=== PATIENT | male | born 1960 | race Caucasian/White ===

== ENCOUNTER 2017-01-26 16:29 | Inpatient (IN) | payer OTHER ==
--- NOTE | 2017-01-26 16:49 | PDOC ---
History of Present Illness - General History Source: Patient Exam Limitations: No Limitations - History of Present Illness Initial Comments: 01/26/17 18:23 The patient is a 56 year old male resident from [facility], with a significant past medical history of Klinefelter's syndrome, DM, Atrial fibrillation, CHF, HTN, HLD, schizophrenia, anxiety who presents to the emergency department with chest pain for the past 2 weeks. Patient reports intermittent chest pain with associated SOB for the past 2 weeks. Patient describes chest pain as sharp, stabbing pain, radiating to shoulder, arm and neck. Patient states he feels his blood pumping through his heart. Additionally, patient reports [place] and since then has been experiencing rib cage pain and axillary pain. Patient He denies headache or dizziness. He denies fever, chills, abdominal pain, nausea , vomit, diarrhea or constipation. He denies dysuria, frequency, urgency or hematuria. Patient denies sick contacts or recent travel. <Madalyn Fowler - Last Filed: 01/26/17 18:23> <Mandy Donahue - Last Filed: 01/26/17 19:08> - General Chief Complaint: Chest Pain Stated Complaint: CHEST PAIN Time Seen by Provider: 01/26/17 16:43 Past History <Madalyn Fowler - Last Filed: 01/26/17 18:23> - Past Medical History Anemia: Yes (vitamin D deficiency) Cardiac Disorders: Yes (afib) COPD: No HTN: Yes Hypercholesterolemia: Yes Psychiatric Problems: Yes (schizophrenia, anxiety) - Suicide/Smoking/Psychosocial Hx Smoking History: Never smoked <Mandy Donahue - Last Filed: 01/26/17 19:08> - Past Medical History Allergies/Adverse Reactions: Allergies Allergy/AdvReac Type Severity Reaction Status Date / Time cephalexin Allergy Verified 01/26/17 16:45 chicken derived Allergy Verified 01/26/17 16:45 cinnamon Allergy Verified 01/26/17 16:45 codeine Allergy Verified 01/26/17 16:46 egg Allergy Verified 01/26/17 16:46 gabapentin Allergy Verified 01/26/17 16:46 hydrochlorothiazide Allergy Verified 01/26/17 16:46 levothyroxine Allergy Verified 01/26/17 16:46 onion Allergy Verified 01/26/17 16:46 Home Medications: Ambulatory Orders Albuterol 0.083% Nebulizer Anabel [Ventolin 0.083%] 1 neb NEB QID PRN 01/26/17 Apixaban [Eliquis] 5 mg PO BID 01/26/17 Dronedarone HCl [Multaq] 400 mg PO BID 01/26/17 Fluticasone Prop 0.05% Nasal [Flonase -] 1 - 2 spray NS DAILY 01/26/17 Furosemide [Lasix] 20 mg PO DAILY 01/26/17 Gabapentin 100 mg PO TID 01/26/17 Hydroxyurea [Hydrea -] 500 mg PO DAILY 01/26/17 Ibuprofen 400 mg PO TID PRN 01/26/17 Insulin Glargine,Hum.rec.anlog [Lantus Solostar PEN (NF)] 65 units SQ DAILY 09/06 Lisinopril [Prinivil] 20 mg PO DAILY 01/26/17 Loratadine [Claritin] 10 mg PO DAILY 01/26/17 Lorazepam 2 mg PO TID 01/26/17 Mag Hydrox/Al Hydrox/Simeth [Mylanta *Suspension*] 30 ml PO Q6H PRN 01/26/17 Magnesium Hydroxide [Milk of Magnesia] 400 mg PO PRN 01/26/17 Magnesium Oxide [Magnesium] 400 mg PO DAILY 01/26/17 Melatonin 3 mg PO HS 01/26/17 Mupirocin Cream [Bactroban 2% Cream -] 1 applic TP BID 01/26/17 Na Phos,M-B/Na Phos,Di-Ba [Fleet Enema] 133 ml RC ONCE PRN 01/26/17 Nystatin Cream [Mycostatin] 1 applic TP BID 01/26/17 Olanzapine 5 mg PO DAILY 01/26/17 Oxycodone HCl/Acetaminophen [Percocet 5-325 mg Tablet] 2 tab PO Q8H PRN Paroxetine HCl 20 mg PO DAILY 01/26/17 Paroxetine HCl 30 mg PO DAILY 01/26/17 Phenyleph/Pramoxin/Glycr/W.pet [Preparation H Cream] 26 gm RC BID 01/26/17 Pramoxine HCl/Calamine [Caladryl 1%-8% Lotion] 177 ml TP TID 01/26/17 Review of Systems - Review of Systems Able to Perform ROS?: Yes Comments:: 01/26/17 18:23 GENERAL/CONSTITUTIONAL: No fever or chills. No weakness. HEAD, EYES, EARS, NOSE AND THROAT: No change in vision. No ear pain or discharge. No sore throat. GASTROINTESTINAL: No nausea, vomiting, diarrhea or constipation. GENITOURINARY: No dysuria, frequency, or change in urination. CARDIOVASCULAR: +chest pain and shortness of breath. RESPIRATORY: No cough, wheezing, or hemoptysis. MUSCULOSKELETAL: No joint or muscle swelling or pain. No neck or back pain. SKIN: No rash NEUROLOGIC: No headache, vertigo, loss of consciousness, or change in strength/ sensation. ENDOCRINE: No increased thirst. No abnormal weight change. HEMATOLOGIC/LYMPHATIC: No anemia, easy bleeding, or history of blood clots. ALLERGIC/IMMUNOLOGIC: No hives or skin allergy. <Madalyn Fowler - Last Filed: 01/26/17 18:23> *Physical Exam - Vital Signs Last Vital Signs Temp Pulse Resp BP Pulse Ox 97.7 F 88 18 135/78 95 01/26/17 16:41 01/26/17 16:41 01/26/17 16:41 01/26/17 16:41 01/26/17 16:41 - Physical Exam Comments: 01/26/17 18:23 GENERAL: Awake, alert, and fully oriented, in no acute distress HEAD: No signs of trauma EYES: PERRLA, EOMI, sclera anicteric, conjunctiva clear ENT: Auricles normal inspection, hearing grossly normal, nares patent, oropharynx clear without exudates. Moist mucosa NECK: Normal ROM, supple, no lymphadenopathy, JVD, or masses LUNGS: Breath sounds equal, clear to auscultation bilaterally. No wheezes, and no crackles HEART: Regular rate and rhythm, normal S1 and S2, no murmurs, rubs or gallops ABDOMEN: Soft, nontender, normoactive bowel sounds. No guarding, no rebound. No masses EXTREMITIES: Normal range of motion, no edema. No clubbing or cyanosis. No cords, erythema, or tenderness. +Tenderness to L lateral ribs and axillary area. NEUROLOGICAL: Cranial nerves II through XII grossly intact. Normal speech, normal gait SKIN: Warm, Dry, normal turgor, no rashes or lesions noted. <Madalyn Fowler - Last Filed: 01/26/17 18:23> - Vital Signs Last Vital Signs Temp Pulse Resp BP Pulse Ox 97.7 F 88 18 135/78 95 01/26/17 16:41 01/26/17 16:41 01/26/17 16:41 01/26/17 16:41 01/26/17 16:41 <Mandy Donahue - Last Filed: 01/26/17 19:08> ED Treatment Course - LABORATORY CBC & Chemistry Diagram: 01/26/17 18:07 01/26/17 18:27 <Mandy Donahue - Last Filed: 01/26/17 19:08> Medical Decision Making - Medical Decision Making 01/26/17 18:54 56yo male with L sided cp and fluttering sensation that has been going on intermittently x 2 weeks -fall 2 week ago -need rib xray to r/o fracture, also c/o cp separate from rib pain -trops, ekg, cxr -hx of PCV 01/26/17 19:07 pt with elevated HCT - hgb 20 pt may need phlebotomy pt will be signed out to the oncoming ED physician pending rest of the labs and discussion with PMD pending PCV pt does take hydroxyurea <Mandy Donahue - Last Filed: 01/26/17 19:08> *DC/Admit/Observation/Transfer - Attestations Scribe Attestion: 01/26/17 18:23 Documentation prepared by Madalyn Fowler, acting as district medical examiner for Mandy Donahue DO, MD/. <Madalyn Fowler - Last Filed: 01/26/17 18:23> - Attestations Physician Attestion: 01/26/17 19:08 I, Dr. Mandy Donahue DO, attest that this document has been prepared under my direction and personally reviewed by me in its entirety. I further attest, that it accurately reflects all work, treatment, procedures and medical decision -making performed by me. <Mandy Donahue - Last Filed: 01/26/17 19:08> Diagnosis at time of Disposition: Polycythemia vera, Chest pain - Referrals Referrals: Franki Pena MD [Primary Care Provider] -
[2017-01-26 18:40] LABS: BASOPHIL 2.1 % (0-2.0); EOSINOPHIL 2.7 % (0-4.5); MCH 28.7 pg (25.7-33.7); MCHC 32.4 g/dl (32.0-35.9); MEAN CELL VOLUME 88.6 fl (80-96); NEUTROPHILS 53.2 % (42.8-82.8); RDW 17.9 % (11.9-15.9)
[2017-01-26] MEDS ORDERED: ONDANSETRON 4 MG/2 ML VIAL IVPUSH ONE (18:54)
[2017-01-26] MEDS ORDERED: SODIUM CHLORIDE 0.9% 1000 ML INFUS.BAG IV ONE (18:54)
[2017-01-26] MEDS ORDERED: ONDANSETRON 4 MG/2 ML VIAL ONE (18:55)
[2017-01-26 19:25] LABS: PLATELET COMMENT2 NO CLUMPING NOTED; PLATELET COMMENT3 NO CLOTTING DETECTED; PLATELET COUNT 282 K/MM3 (134-434); PLATELET ESTIMATE ADEQUATE (NORMAL)
--- NOTE | 2017-01-26 19:42 | PDOC ---
*Physical Exam - Vital Signs Last Vital Signs Temp Pulse Resp BP Pulse Ox 97.7 F 88 18 135/78 95 01/26/17 16:41 01/26/17 16:41 01/26/17 16:41 01/26/17 16:41 01/26/17 16:41 <Aurelio Tracey - Last Filed: 01/26/17 22:15> - Vital Signs Last Vital Signs Temp Pulse Resp BP Pulse Ox 97.7 F 88 18 135/78 95 01/26/17 16:41 01/26/17 16:41 01/26/17 16:41 01/26/17 16:41 01/26/17 16:41 <Kenia Stephens - Last Filed: 01/26/17 23:56> ED Treatment Course - LABORATORY CBC & Chemistry Diagram: 01/26/17 18:07 01/26/17 19:30 - ADDITIONAL ORDERS Additional order review: Laboratory Results 01/26/17 01/26/17 18:27 18:07 Sodium Cancelled Potassium Cancelled Chloride Cancelled Carbon Dioxide Cancelled Anion Gap Cancelled BUN Cancelled Creatinine Cancelled Creat Clearance w eGFR Cancelled Random Glucose Cancelled Calcium Cancelled Magnesium Cancelled Total Bilirubin Cancelled AST Cancelled ALT Cancelled Alkaline Phosphatase Cancelled Creatine Kinase Cancelled Troponin I Cancelled B-Natriuretic Peptide Cancelled Total Protein Cancelled Albumin Cancelled 01/26/17 18:07 RBC 7.06 H MCV 88.6 MCHC 32.4 RDW 17.9 H MPV 8.0 Neutrophils % 53.2 Lymphocytes % 32.8 Monocytes % 9.2 Eosinophils % 2.7 Basophils % 2.1 H - Medications Given in the ED: ED Medications Discontinued Medications Generic Name Dose Route Start Last Admin Trade Name Freq PRN Reason Stop Dose Admin Ondansetron HCl 4 mg 01/26/17 18:54 01/26/17 19:06 Zofran Injection IVPUSH 01/26/17 18:55 Not Given ONCE ONE Sodium Chloride 1,000 ml 01/26/17 18:54 01/26/17 19:06 Normal Saline - IV 01/26/17 18:55 1,000 ml ONCE ONE Administration <Aurelio Tracey - Last Filed: 01/26/17 22:15> - LABORATORY CBC & Chemistry Diagram: 01/26/17 22:30 01/26/17 19:30 - ADDITIONAL ORDERS Additional order review: Laboratory Results 01/26/17 01/26/17 18:27 18:07 Sodium Cancelled Potassium Cancelled Chloride Cancelled Carbon Dioxide Cancelled Anion Gap Cancelled BUN Cancelled Creatinine Cancelled Creat Clearance w eGFR Cancelled Random Glucose Cancelled Calcium Cancelled Magnesium Cancelled Total Bilirubin Cancelled AST Cancelled ALT Cancelled Alkaline Phosphatase Cancelled Creatine Kinase Cancelled Troponin I Cancelled B-Natriuretic Peptide Cancelled Total Protein Cancelled Albumin Cancelled 01/26/17 18:07 RBC 7.06 H MCV 88.6 MCHC 32.4 RDW 17.9 H MPV 8.0 Neutrophils % 53.2 Lymphocytes % 32.8 Monocytes % 9.2 Eosinophils % 2.7 Basophils % 2.1 H - Medications Given in the ED: ED Medications Discontinued Medications Generic Name Dose Route Start Last Admin Trade Name Freq PRN Reason Stop Dose Admin Ondansetron HCl 4 mg 01/26/17 18:54 01/26/17 19:06 Zofran Injection IVPUSH 01/26/17 18:55 Not Given ONCE ONE Sodium Chloride 1,000 ml 01/26/17 18:54 01/26/17 19:06 Normal Saline - IV 01/26/17 18:55 1,000 ml ONCE ONE Administration <Kenia Stephens - Last Filed: 01/26/17 23:56> Medical Decision Making - Medical Decision Making 01/26/17 19:52 Pt is a 56 year old male resident from [facility], with a significant past medical history of Klinefelter's syndrome, DM, Atrial fibrillation, CHF, HTN, HLD, schizophrenia, anxiety who presents to the emergency department with chest pain for the past 2 weeks. Patient's Hgb is 20. Plan: -Call Dr. Mary Jo Pena for possible admission and phlebotomy to decrease blood count. -Paronychia drainage, right thumb. First call placed to Dr. Pena at 20:56. Awaiting call back. Case discussed with Dr. Santana at 21:00, who requests patient be admitted to hospitalists. First call placed to Dr. Ritter at 21:44. Awaiting call back from Dr. Randle. Case discussed with Dr. Randle at 21:46. First call placed to Dr. Flores at 22:05. Awaiting call back. <Kenia Stephens - Last Filed: 01/26/17 23:56> *DC/Admit/Observation/Transfer - Discharge Dispostion Admit: Yes - Attestations Physician Attestion: 01/26/17 19:42 I, Dr. Aurelio Tracey, attest that this document has been prepared under my direction and personally reviewed by me in its entirety. I further attest, that it accurately reflects all work, treatment, procedures and medical decision -making performed by me. <Aurelio Tracey - Last Filed: 01/26/17 22:15> - Attestations Scribe Attestion: 01/26/17 19:53 Documentation prepared by Kenia Stephens, acting as medical chief technician for Aurelio Tracey DO. <Kenia Stephens - Last Filed: 01/26/17 23:56> Diagnosis at time of Disposition: Polycythemia vera, Chest pain - Discharge Dispostion Condition at time of disposition: Improved - Referrals - Patient Instructions - Post Discharge Activity Procedures - Incision and Drainage I&D Site: Right: Paronychia (Thumb) Blade Size: 11 <Kenia Stephens - Last Filed: 01/26/17 23:56>
[2017-01-26 20:10] LABS: ALBUMIN 2.9 g/dl (3.4-5.0); ANION GAP 8 (8-16); BILIRUBIN,TOTAL 0.3 mg/dL (0.2-1.0); CALCIUM 8.4 mg/dL (8.5-10.1); CO2 27 mmol/L (21-32); CREATININE 0.9 mg/dL (0.7-1.3); SGPT/ALT 46 U/L (12-78); TOT PROT 6.3 g/dl (6.4-8.2)
[2017-01-26 20:12] LABS: ALK PHOS 95 U/L (45-117); TROPONIN I < 0.02 ng/ml (0.00-0.05)
[2017-01-26 20:15] LABS: GLUCOSE,RANDOM 358 mg/dL (74-106); MAGNESIUM 1.9 mg/dL (1.8-2.4); SGOT/AST 23 U/L (15-37)
[2017-01-26] MEDS ORDERED: SODIUM CHLORIDE 1,000 ML IV STA (20:17)
[2017-01-26] MEDS ORDERED: INSULIN REGULAR HUMAN 100 UNITS/ML *VIAL IVPUSH ONE (20:17)
[2017-01-26] MEDS ORDERED: INSULIN REGULAR HUMAN 100 UNITS/ML *VIAL ONE (20:39)
[2017-01-26] MEDS ORDERED: ASPIRIN 81 MG CHEWABLE TABLETS PO ONE (21:42)
[2017-01-26] MEDS ORDERED: ASPIRIN 325 MG TABLET ONE (21:54)
--- NOTE | 2017-01-26 22:16 | HP ---
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 He reports taht he has history of occasional CP, however, this episode started 2 w ago after he fell on his L shoulder and L chest. Pain is somewhat atypical, not associated with movement or breathing but reproducible by pressing on chest. Patient describes chest pain as sharp, stabbing pain, radiating to shoulder, arm and neck. During the examination, CP is no longer present. Patient has not seen a hemotologist in a year. he denies current presence of his usual PV symptoms (itching, head pressure). He denies history of stroke, PE or WI. He reports chronic intermittent sob, intermittent chronic palpitations, chronic intermittent bloody stools due to hemorrhoids, constipation due to percocet use and diabetic neuropathy in b/l feet. He denies h/a, visual changes, dizziness, f/c, cough, hemoptysis, abd pain, n/v, diarrhea, dysuria. ER course was notable for: (1)labs (2)ekg, cxr (3)asa, IVF Recent Travel: denies PAST MEDICAL HISTORY: as above PAST SURGICAL HISTORY: as above Social History: [place] resident Smoking: denies Alcohol: denies Drugs: denies Family History: unknown Allergies cephalexin Allergy (Verified 01/26/17 16:45) chicken derived Allergy (Verified 01/26/17 16:45) cinnamon Allergy (Verified 01/26/17 16:45) codeine Allergy (Verified 01/26/17 16:46) egg Allergy (Verified 01/26/17 16:46) gabapentin Allergy (Verified 01/26/17 16:46) hydrochlorothiazide Allergy (Verified 01/26/17 16:46) levothyroxine Allergy (Verified 01/26/17 16:46) onion Allergy (Verified 01/26/17 16:46) HOME MEDICATIONS: Home Medications Medication Instructions Recorded Albuterol 0.083% Nebulizer Anabel 1 neb NEB QID PRN 01/26/17 [Ventolin 0.083%] Apixaban [Eliquis] 5 mg PO BID 01/26/17 Dronedarone HCl [Multaq] 400 mg PO BID 01/26/17 Fluticasone Prop 0.05% Nasal 1 - 2 spray NS DAILY 01/26/17 [Flonase -] Furosemide [Lasix] 20 mg PO DAILY 01/26/17 Gabapentin 100 mg PO TID 01/26/17 Hydroxyurea [Hydrea -] 500 mg PO DAILY 01/26/17 Ibuprofen 400 mg PO TID PRN 01/26/17 Insulin Glargine,Hum.rec.anlog 65 units SQ DAILY 01/26/17 [Lantus Solostar PEN (NF)] Lisinopril [Prinivil] 20 mg PO DAILY 01/26/17 Loratadine [Claritin] 10 mg PO DAILY 01/26/17 Lorazepam 2 mg PO TID 01/26/17 Mag Hydrox/Al Hydrox/Simeth 30 ml PO Q6H PRN 01/26/17 [Mylanta *Suspension*] Magnesium Hydroxide [Milk of 400 mg PO DAILY PRN 01/26/17 Magnesia] Magnesium Oxide [Magnesium] 400 mg PO DAILY 01/26/17 Melatonin 3 mg PO HS 01/26/17 Mupirocin Cream [Bactroban 2% 1 applic TP BID 01/26/17 Cream -] Na Phos,M-B/Na Phos,Di-Ba [Fleet 133 ml RC ONCE PRN 01/26/17 Enema] Nystatin Cream [Mycostatin] 1 applic TP BID 01/26/17 Olanzapine 5 mg PO DAILY 01/26/17 Oxycodone HCl/Acetaminophen 2 tab PO Q8H PRN 01/26/17 [Percocet 5-325 mg Tablet] Paroxetine HCl 20 mg PO DAILY 01/26/17 Paroxetine HCl 30 mg PO DAILY 01/26/17 Phenyleph/Pramoxin/Glycr/W.pet 26 gm RC BID 01/26/17 [Preparation H Cream] Pramoxine HCl/Calamine [Caladryl 177 ml TP TID 01/26/17 1%-8% Lotion] REVIEW OF SYSTEMS CONSTITUTIONAL: Absent: fever, chills, diaphoresis, generalized weakness, weight change HEENT: Absent: rhinorrhea, nasal congestion, throat pain, visual changes CARDIOVASCULAR: Absent: syncope, palpitations, irregular heart rate, lightheadedness, peripheral edema RESPIRATORY: Absent: cough, hemoptysis GASTROINTESTINAL: Absent: abdominal pain, abdominal distension, nausea, vomiting, diarrhea, constipation, melena GENITOURINARY: Absent: dysuria MUSCULOSKELETAL: Absent: myalgia, arthralgia SKIN: Absent: rash, itching, pallor HEMATOLOGIC/IMMUNOLOGIC: Absent: frequent infections ENDOCRINE: Absent: unexplained weight gain, unexplained weight loss, heat intolerance, cold intolerance NEUROLOGIC: Absent: headache, focal weakness or paresthesias, dizziness PSYCHIATRIC: Absent: suicidal or homicidal ideation, hallucinations. PHYSICAL EXAMINATION Vital Signs - 24 hr 01/26/17 01/26/17 01/26/17 16:41 21:03 21:14 Temperature 97.7 F Pulse Rate 88 Pulse Rate [ 82 Radial] Respiratory 18 20 Rate Blood Pressure 135/78 Blood Pressure 136/76 [Left Arm] O2 Sat by Pulse 95 96 95 Oximetry (%) GENERAL: Awake, alert, and fully oriented, in no acute distress. HEAD: Normal with no signs of trauma. EYES: Pupils equal, round and reactive to light, extraocular movements intact, sclera anicteric, conjunctiva clear. EARS, NOSE, THROAT: Moist mucous membranes. NECK: supple without JVD LUNGS: Breath sounds equal, clear to auscultation bilaterally. HEART: Regular rate and rhythm, normal S1 and S2 ABDOMEN: Soft, nontender, not distended, normoactive bowel sounds MUSCULOSKELETAL: No CVA tenderness. UPPER EXTREMITIES: 2+ pulses, warm, well-perfused.No peripheral edema. LOWER EXTREMITIES: 1+ pulses, warm, well-perfused. No calf tenderness. No peripheral edema. NEUROLOGICAL: Cranial nerves II-XII grossly intact. Normal speech. PSYCHIATRIC: Cooperative. Good eye contact. Appropriate mood and affect. SKIN: Warm, dry Laboratory Results - last 24 hr 01/26/17 01/26/17 01/26/17 18:07 18:07 18:27 WBC 6.0 RBC 7.06 H Hgb 20.3 H* Hct 62.6 H MCV 88.6 MCH 28.7 MCHC 32.4 RDW 17.9 H Plt Count 282 MPV 8.0 Neutrophils % 53.2 Lymphocytes % 32.8 Monocytes % 9.2 Eosinophils % 2.7 Basophils % 2.1 H Platelet Estimate Adequate Platelet Comment No clumping noted RBC Morphology Sodium Cancelled Potassium Cancelled Chloride Cancelled Carbon Dioxide Cancelled Anion Gap Cancelled BUN Cancelled Creatinine Cancelled Creat Clearance w eGFR Cancelled Random Glucose Cancelled Calcium Cancelled Magnesium Cancelled Total Bilirubin Cancelled AST Cancelled ALT Cancelled Alkaline Phosphatase Cancelled Creatine Kinase Cancelled Troponin I Cancelled B-Natriuretic Peptide Cancelled Total Protein Cancelled Albumin Cancelled 01/26/17 01/26/17 19:30 19:30 WBC RBC Hgb Hct MCV MCH MCHC RDW Plt Count MPV Neutrophils % Lymphocytes % Monocytes % Eosinophils % Basophils % Platelet Estimate Platelet Comment RBC Morphology Sodium 133 L Potassium 4.4 Chloride 98 Carbon Dioxide 27 Anion Gap 8 BUN 22 H Creatinine 0.9 Creat Clearance w eGFR > 60 Random Glucose 358 H* Calcium 8.4 L Magnesium 1.9 Total Bilirubin 0.3 AST 23 ALT 46 Alkaline Phosphatase 95 Creatine Kinase Troponin I < 0.02 B-Natriuretic Peptide 97.37 Total Protein 6.3 L Albumin 2.9 L ASSESSMENT/PLAN: This is a 56 yo M [place] resident, with a 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 PV exacerbation with atypical CP -Hct 60% -Heme consult -Phlebotomy to remove 1u; may need to remove more. Hct goal <45% but expected to drop 6% after session -IVF -CP likely musculoskeletal; f/o acs -trop negative, check one more -EKG precordial q waves -+sytolic murmur, appears euvolemic -TTE -tele monitoring -cardio on case -contineu asa, increase hydroxyurea to 500 bid A fin due to aortic valvular damage -rate controlled, stable -continue eliquis IDDM -BGM, ISS -resume basal insulin HTN HLD -resume home meds Dispo: adm tele Problem List - Problem (1) Polycythemia vera Code(s): D45 - POLYCYTHEMIA VERA (2) Atypical chest pain Code(s): R07.89 - OTHER CHEST PAIN (3) HTN (hypertension) Code(s): I10 - ESSENTIAL (PRIMARY) HYPERTENSION (4) HLD (hyperlipidemia) Code(s): E78.5 - HYPERLIPIDEMIA, UNSPECIFIED (5) IDDM (insulin dependent diabetes mellitus) Code(s): E11.9 - TYPE 2 DIABETES MELLITUS WITHOUT COMPLICATIONS Z79.4 - STUMP BLOWER (CURRENT) USE OF INSULIN (6) Atrial fibrillation Code(s): I48.91 - UNSPECIFIED ATRIAL FIBRILLATION Visit type - Emergency Visit Emergency Visit: Yes ED Registration Date: 01/26/17 Care time: The patient presented to the Emergency Department on the above date and was hospitalized for further evaluation of their emergent condition. - New Patient This patient is new to me today: Yes Date on this admission: 01/27/17 - Critical Care Critical Care patient: No
[2017-01-26 22:32] LABS: CPK 92 IU/L (39-308)
[2017-01-26 22:50] LABS: MCH 28.2 pg (25.7-33.7); MEAN CELL VOLUME 88.1 fl (80-96); MEAN PLT VOLUME 7.6 fl (7.5-11.1); PLATELET COUNT 269 K/MM3 (134-434); RDW 17.9 % (11.9-15.9); WHITE BLOOD COUNT 6.8 K/mm3 (4.0-10.0)
[2017-01-26 22:53] LABS: URIC ACID 7.3 mg/dL (2.6-7.2)
--- NOTE | 2017-01-26 23:05 | PN ---
Teaching Attending Note Name of Resident: Adrian Chavarria ATTENDING PHYSICIAN STATEMENT I saw and evaluated the patient. I reviewed the resident's note and discussed the case with the resident. I agree with the resident's findings and plan as documented. SUBJECTIVE: 56 M with pmhx Kleinfelter's, DM, Afib on Eliquis, CHF, HTN, HLD, and Schizophrenia, anxiety, and upon reinterview PCV (with last phlebotomy being 1 year ago), who presents with left sided chest pain. States he fell out of bed and landed on his left chest. States Xrays were done in [place] and all were negative. Denies shortness of breath No headaches, no dizziness, no lightheadedness. States when his Hct is high, he usually has puritis, but denies that now,. States takes Hydrea regularly, but had not followed with a digital strategy director. States his chest pain is non-radiating and is present upon his own palpation. No chest pressure. OBJECTIVE: Physical: VS: Vital Signs Period Temp Pulse Resp BP Sys/Guallpa Pulse Ox Last 24 Hr 97.7 F 82-88 18-20 135-136/76-78 95-96 GEN: NAD, AA0X3, Resting in bed HEENT: NCAT, PERRL, Throat without erythema or exudates CARD: RRR S1, S2 RESP: CTAB ABD: BSx4, NTD to palpation EXT: - C/C/E CBCD WBC 6.8 K/mm3 (4.0-10.0) 01/26/17 22:30 RBC 7.13 M/mm3 (4.00-5.60) H 01/26/17 22:30 Hgb 20.1 GM/dL (11.7-16.9) H* 01/26/17 22:30 Hct 62.8 % (35.4-49) H 01/26/17 22:30 MCV 88.1 fl (80-96) 01/26/17 22:30 MCHC 32.0 g/dl (32.0-35.9) 01/26/17 22:30 RDW 17.9 % (11.9-15.9) H 01/26/17 22:30 Plt Count 269 K/MM3 (134-434) 01/26/17 22:30 MPV 7.6 fl (7.5-11.1) 01/26/17 22:30 CMP Sodium 133 mmol/L (136-145) L 01/26/17 19:30 Potassium 4.4 mmol/L (3.5-5.1) 01/26/17 19:30 Chloride 98 mmol/L (98-107) 01/26/17 19:30 Carbon Dioxide 27 mmol/L (21-32) 01/26/17 19:30 Anion Gap 8 (8-16) 01/26/17 19:30 BUN 22 mg/dL (7-18) H 01/26/17 19:30 Creatinine 0.9 mg/dL (0.7-1.3) 01/26/17 19:30 Creat Clearance w eGFR > 60 (>60) 01/26/17 19:30 Random Glucose 358 mg/dL (74-106) H* 01/26/17 19:30 Calcium 8.4 mg/dL (8.5-10.1) L 01/26/17 19:30 Total Bilirubin 0.3 mg/dL (0.2-1.0) 01/26/17 19:30 AST 23 U/L (15-37) 01/26/17 19:30 ALT 46 U/L (12-78) 01/26/17 19:30 Alkaline Phosphatase 95 U/L (45-117) 01/26/17 19:30 Total Protein 6.3 g/dl (6.4-8.2) L 01/26/17 19:30 Albumin 2.9 g/dl (3.4-5.0) L 01/26/17 19:30 CARDIAC ENZYMES Creatine Kinase 92 IU/L (39-308) 01/26/17 19:30 Troponin I < 0.02 ng/ml (0.00-0.05) 01/26/17 19:30 EKG: NSR, LAE, Q waves in the septal leads CXR- No acute process Rib Xray- Pending Ambulatory Orders Albuterol 0.083% Nebulizer Anabel [Ventolin 0.083%] 1 neb NEB QID PRN 01/26/17 Apixaban [Eliquis] 5 mg PO BID 01/26/17 Dronedarone HCl [Multaq] 400 mg PO BID 01/26/17 Fluticasone Prop 0.05% Nasal [Flonase -] 1 - 2 spray NS DAILY 01/26/17 Furosemide [Lasix] 20 mg PO DAILY 01/26/17 Gabapentin 100 mg PO TID 01/26/17 Hydroxyurea [Hydrea -] 500 mg PO DAILY 01/26/17 Ibuprofen 400 mg PO TID PRN 01/26/17 Insulin Glargine,Hum.rec.anlog [Lantus Solostar PEN (NF)] 65 units SQ DAILY 09/06 Lisinopril [Prinivil] 20 mg PO DAILY 01/26/17 Loratadine [Claritin] 10 mg PO DAILY 01/26/17 Lorazepam 2 mg PO TID 01/26/17 Mag Hydrox/Al Hydrox/Simeth [Mylanta *Suspension*] 30 ml PO Q6H PRN 01/26/17 Magnesium Hydroxide [Milk of Magnesia] 400 mg PO DAILY PRN 01/26/17 Magnesium Oxide [Magnesium] 400 mg PO DAILY 01/26/17 Melatonin 3 mg PO HS 01/26/17 Mupirocin Cream [Bactroban 2% Cream -] 1 applic TP BID 01/26/17 Na Phos,M-B/Na Phos,Di-Ba [Fleet Enema] 133 ml RC ONCE PRN 01/26/17 Nystatin Cream [Mycostatin] 1 applic TP BID 01/26/17 Olanzapine 5 mg PO DAILY 01/26/17 Oxycodone HCl/Acetaminophen [Percocet 5-325 mg Tablet] 2 tab PO Q8H PRN Paroxetine HCl 20 mg PO DAILY 01/26/17 Paroxetine HCl 30 mg PO DAILY 01/26/17 Phenyleph/Pramoxin/Glycr/W.pet [Preparation H Cream] 26 gm RC BID 01/26/17 Pramoxine HCl/Calamine [Caladryl 1%-8% Lotion] 177 ml TP TID 01/26/17 ASSESSMENT AND PLAN: 56 M with pmhx Kleinfelter's, DM, Afib on Eliquis, CHF, HTN, HLD, and Schizophrenia, anxiety, and PCV who presents with chest pain 1.) Chest Pain - Atypical - MSK - S/P ASA - Trend Trop/EKG - Cardiology consulted - Dr. Flores spoken to ok with phelbotomy - Echo\-Rib Xray 2.) Polycythemia Vera - Repeat CBC - Goal Hct <45 - LDH/Uric A - Spoken with Heme, S/P phlebotomy 450mL- Consented in ED - Monitor hemodynamics post procedure - 500 Ml IVF - Goal Hct<45 - ASA given, Continue with ASA 81mg tomorrow - Hydrea 500mg BID - EPO/Rogers-2 3.) CHF - Currently Euvolemic - C/W home meds 4.) Afib - Currently in NSR - On Eliquis - C/W home meds - Monitor CBC 5.) HTN - Hold meds for now - Resume once Phlebotomy is done 6.) Hx. of Kleinfelters - Outpt. Mammo/Testicular US 7.) Hx. of Schizophrenia -C/W home meds 7.) Dvt Ppx - Eliquis Place in Med-Tele
--- NOTE | 2017-01-26 23:17 | CONSULT ---
Consult - text type - Consultation Consultation Note: PAtient seen and examined 56 y/o male with h/o polycythemia vera diagnosed 7-8 yrs. ago at [place], where he had a bone marrow bx. He was being followed by Dr. Juarez at [facility] and had monthly phlebotomis, upuntil 8 months dasilva. Had been on hydrea and ASA 81mg dialy PAtient comes in s/p fall 1week ago. intermittent cjhhest pains, palpitations, haeadaches. No fever/chills/cough/SOB. Reports hemorrhoidal bleeding. no urinary symptoms PMH Klinefelters sundrome gynecomastia biopsies of benign breast masses Polycythemia vera HTN Afib chronic back pain PSG breast biopsies SH nonsmoker Last Vital Signs Temp Pulse Resp BP Pulse Ox 97.7 F 82 20 136/76 95 01/26/17 16:41 01/26/17 21:03 01/26/17 21:03 01/26/17 21:03 01/26/17 21:14 Cor: RSR, No murmurs, No gallops Lungs: Clear to P&A Abd: Soft, Normal bowel sounds, No organomegaly Ext:No significant edema Skin: No rashes, Integument intact Abnormal Lab Results 01/26/17 01/26/17 01/26/17 18:07 19:30 19:30 RBC 7.06 H Hgb 20.3 H* Hct 62.6 H RDW 17.9 H Basophils % 2.1 H Sodium 133 L BUN 22 H Random Glucose 358 H* Uric Acid 7.3 H Calcium 8.4 L Total Protein 6.3 L Albumin 2.9 L 01/26/17 22:30 RBC 7.13 H Hgb 20.1 H* Hct 62.8 H RDW 17.9 H Basophils % Sodium BUN Random Glucose Uric Acid Calcium Total Protein Albumin Active Medications Generic Name Dose Route Start Last Admin Trade Name Freq PRN Reason Stop Dose Admin Al Hydroxide/Mg Hydroxide 30 ml 01/26/17 23:59 Mylanta Oral Suspension - PO Q6H PRN DIARRHEA Albuterol/Ipratropium 1 amp 01/27/17 00:11 Duoneb - NEB Q8H PRN SHORT OF BREATH/WHEEZING Apixaban 5 mg 01/27/17 10:00 Eliquis - PO BID ANCA Dronedarone 400 mg 01/27/17 10:00 Multaq - PO BID [facility] Furosemide 20 mg 01/27/17 10:00 Lasix - PO DAILY [facility] Gabapentin 100 mg 01/27/17 06:00 Neurontin - PO TID [facility] Hydroxyurea 500 mg 01/27/17 10:00 Hydrea - PO BID [facility] Ibuprofen 400 mg 01/26/17 23:59 Motrin - PO TID PRN PAIN Insulin Aspart 1 vial 01/27/17 07:00 Novolog Vial Sliding Scale - SQ ACHS [facility] Protocol Lisinopril 20 mg 01/27/17 10:00 Prinivil PO DAILY [facility] Loratadine 10 mg 01/27/17 10:00 Claritin - PO DAILY [facility] Magnesium Hydroxide ml 01/26/17 23:59 Milk Of Magnesia - PO DAILY PRN CONSTIPATION Magnesium Oxide 400 mg 01/27/17 10:00 Mag-Ox - PO DAILY [facility] Non-Formulary Medication 65 units 01/27/17 10:00 Insulin Glargine,Hum.Rec.Anlog SQ DAILY [facility] Non-Formulary Medication 2 mg 01/27/17 06:00 Lorazepam [Lorazepam] PO TID [facility] Non-Formulary Medication 3 mg 01/27/17 22:00 Melatonin [Melatonin] PO HS [facility] Olanzapine 5 mg 01/27/17 10:00 Zyprexa - PO DAILY [facility] Oxycodone/Acetaminophen 1 combo 01/27/17 00:10 Percocet 5/325 - PO Q12H PRN PAIN Paroxetine HCl 20 mg 01/27/17 10:00 Paxil - PO DAILY [facility] Paroxetine HCl 30 mg 01/27/17 10:00 Paxil - PO DAILY [facility] A/P 56 y/o male with h/o polycythemia vera diagnosed 7-8 yrs. ago at [place], where he had a bone marrow bx. He was being followed by Dr. Juarez at [facility] and had monthly phlebotomis, upuntil 8 months dasilva. Had been on hydrea and ASA 81mg dialy. Has not seen a branch sales manager and has not been phlebotomized for > 8 months now Comes in with intermittent headaches and chest pain. Also with fall 1 week ago, Reports last episode pof chestpain 2 days back. HCT 62%, repeated twice Concern for symptoms of hyperviscosity Discussed with cardiology team Informed consent taken and phlebotomized 1 unit of blood with the help of hospitalist team. Vitals stable during and post procedure. Will contine to monitor closely for 1-2hrs. Resume hydrea 500mg bid/ASA 81mg daily check EPo/JAK2 check testicular u/s and mammogram out patient ---h/o klinefelters will follow
[2017-01-26] MEDS ORDERED: LIDOCAINE HCL 2% (20ML MULTI-DOSE VIAL) NR ONE (23:52)
[2017-01-26] MEDS ORDERED: LIDOCAINE HCL 2% (50ML VIAL) SQ ONE (23:52)
[2017-01-26] MEDS ORDERED: MAG HYDROX/AL HYDROX/SIMETH 30 ML UNIT-DOSE CUP PO PRN (23:59)
[2017-01-26] MEDS ORDERED: MAGNESIUM HYDROX 2400MG/30ML ORAL SUSPENSION 30 ML CUP PO PRN (23:59)
[2017-01-26] MEDS ORDERED: IBUPROFEN 400 MG TABLET (FP) PO PRN (23:59)
[2017-01-27] MEDS ORDERED: ALBUTEROL SO4 2.5/IPRATROPIUM 0.5 INH SOL 3 ML VIAL.NEB. NEB PRN (00:11)
[2017-01-27] MEDS ORDERED: ACETAMINOPHEN 325 MG TABLET (FP) PO PRN (00:33)
--- NOTE | 2017-01-27 00:50 | HP ---
CHIEF COMPLAINT: chest pain PCP: Pena HISTORY OF PRESENT ILLNESS: 56M w/ hx of polycythemia vera, a-fib, IDDM, anxiety, HTN, HLD, schizophrenia, and klinefelter's disease who presents with worsening of chronic chest pain. Per pt, he has had intermittent left-sided chest pain for several years, accompanied by SOB, without any clear precipitants, improved with O2, non- radiating, 5/10 in severity, and pressure-like/fluttering. 2 weeks ago, he reports falling on left shoulder and left ribs, and since then, his chest pain has been worse. Pt states that his last episode of chest pain ended 2 days ago, and he is presenting to the hospital per his PCP who told him to get checked out for it. Pt was diagnosed with polycythemia vera when he was about 42 years old, and he was getting therapeutic phlebotomy every month until he was transferred to [facility] for physical rehab 8 months ago. He states that he hasn't received any phlebotomies in those 8 months. He endorses occasional headaches, dizziness , eyrthromelagia, and aquatic pruritis. At this time, he denies chest pain, SOB , n/v/d/c, dysuria, fevers, and chills. ER course was notable for: (1) CBC (2) CMP Recent Travel: none PAST MEDICAL HISTORY: polycythemia vera, a-fib, IDDM, anxiety, HTN, HLD, schizophrenia, and klinefelter's disease PAST SURGICAL HISTORY: b/l benign breast mass excisions Social History: Smoking: denies Alcohol: denies Drugs: denies Family History: Allergies cephalexin Allergy (Verified 01/26/17 16:45) chicken derived Allergy (Verified 01/26/17 16:45) cinnamon Allergy (Verified 01/26/17 16:45) codeine Allergy (Verified 01/26/17 16:46) egg Allergy (Verified 01/26/17 16:46) gabapentin Allergy (Verified 01/26/17 16:46) hydrochlorothiazide Allergy (Verified 01/26/17 16:46) levothyroxine Allergy (Verified 01/26/17 16:46) onion Allergy (Verified 01/26/17 16:46) HOME MEDICATIONS: Home Medications Medication Instructions Recorded Albuterol 0.083% Nebulizer Anabel 1 neb NEB QID PRN 01/26/17 [Ventolin 0.083%] Apixaban [Eliquis] 5 mg PO BID 01/26/17 Dronedarone HCl [Multaq] 400 mg PO BID 01/26/17 Fluticasone Prop 0.05% Nasal 1 - 2 spray NS DAILY 01/26/17 [Flonase -] Furosemide [Lasix] 20 mg PO DAILY 01/26/17 Gabapentin 100 mg PO TID 01/26/17 Hydroxyurea [Hydrea -] 500 mg PO DAILY 01/26/17 Ibuprofen 400 mg PO TID PRN 01/26/17 Insulin Glargine,Hum.rec.anlog 65 units SQ DAILY 01/26/17 [Lantus Solostar PEN (NF)] Lisinopril [Prinivil] 20 mg PO DAILY 01/26/17 Loratadine [Claritin] 10 mg PO DAILY 01/26/17 Lorazepam 2 mg PO TID 01/26/17 Mag Hydrox/Al Hydrox/Simeth 30 ml PO Q6H PRN 01/26/17 [Mylanta *Suspension*] Magnesium Hydroxide [Milk of 400 mg PO DAILY PRN 01/26/17 Magnesia] Magnesium Oxide [Magnesium] 400 mg PO DAILY 01/26/17 Melatonin 3 mg PO HS 01/26/17 Mupirocin Cream [Bactroban 2% 1 applic TP BID 01/26/17 Cream -] Na Phos,M-B/Na Phos,Di-Ba [Fleet 133 ml RC ONCE PRN 01/26/17 Enema] Nystatin Cream [Mycostatin] 1 applic TP BID 01/26/17 Olanzapine 5 mg PO DAILY 01/26/17 Oxycodone HCl/Acetaminophen 2 tab PO Q8H PRN 01/26/17 [Percocet 5-325 mg Tablet] Paroxetine HCl 20 mg PO DAILY 01/26/17 Paroxetine HCl 30 mg PO DAILY 01/26/17 Phenyleph/Pramoxin/Glycr/W.pet 26 gm RC BID 01/26/17 [Preparation H Cream] Pramoxine HCl/Calamine [Caladryl 177 ml TP TID 01/26/17 1%-8% Lotion] REVIEW OF SYSTEMS CONSTITUTIONAL: Absent: fever, chills, generalized weakness, malaise, loss of appetite, weight change Present: diaphoresis HEENT: Absent: rhinorrhea, nasal congestion, throat pain, throat swelling, difficulty swallowing, mouth swelling, ear pain, eye pain, visual changes CARDIOVASCULAR: Absent: syncope, palpitations, irregular heart rate, lightheadedness, peripheral edema Present: chest pain RESPIRATORY: Absent: cough, dyspnea with exertion, orthopnea, wheezing, stridor, hemoptysis Present: SOB GASTROINTESTINAL: Absent: abdominal pain, abdominal distension, nausea, vomiting, diarrhea, constipation Present: BRBPR, hemorroids GENITOURINARY: Absent: dysuria, frequency, urgency, hesitancy, hematuria, flank pain, genital pain MUSCULOSKELETAL: Absent: myalgia, arthralgia, joint swelling, neck pain PresentL back pain, sciataca SKIN: Absent: rash, itching, pallor HEMATOLOGIC/IMMUNOLOGIC: Absent: easy bleeding, easy bruising, lymphadenopathy, frequent infections ENDOCRINE: Absent: unexplained weight gain, unexplained weight loss, heat intolerance, cold intolerance NEUROLOGIC: Absent: focal weakness or paresthesias, dizziness, unsteady gait, seizure, mental status changes, bladder or bowel incontinence Present: headache PSYCHIATRIC: Absent: anxiety, suicidal or homicidal ideation, hallucinations Present: depression PHYSICAL EXAMINATION GENERAL: middle-aged male, awake, alert, and fully oriented, in no acute distress. HEAD: Normal with no signs of trauma. EYES: Pupils equal, round and reactive to light, extraocular movements intact, sclera anicteric, conjunctiva clear. No lid lag. EARS, NOSE, THROAT: Ears normal, nares patent, oropharynx clear without exudates. Moist mucous membranes. NECK: Normal range of motion, supple without lymphadenopathy, JVD, or masses. LUNGS: Breath sounds equal, clear to auscultation bilaterally. No wheezes, and no crackles. No accessory muscle use. HEART: normal rate and rhythm, systolic murmur heard best in aortic valve area. +gynecomastia, several cm scar lateral to left nipple. tender to palpation along left lateral ribs. ABDOMEN: Soft, nontender, not distended, normoactive bowel sounds, no guarding, no rebound, no masses. No hepatomegaly or splenomegaly. MUSCULOSKELETAL: Normal range of motion at all joints. No bony deformities or tenderness. No CVA tenderness. UPPER EXTREMITIES: 2+ pulses, warm, well-perfused. No cyanosis. No clubbing. No peripheral edema. +flushed skin LOWER EXTREMITIES: 2+ pulses, warm, well-perfused. No calf tenderness. No peripheral edema. +flushed skin NEUROLOGICAL: Cranial nerves II-XII intact. Normal speech. Normal gait. PSYCHIATRIC: Cooperative. Good eye contact. Appropriate mood and affect. Laboratory Results - last 24 hr 01/26/17 22:30 WBC 6.8 RBC 7.13 H Hgb 20.1 H* Hct 62.8 H MCV 88.1 MCH 28.2 MCHC 32.0 RDW 17.9 H Plt Count 269 MPV 7.6 Laboratory Results - last 24 hr 01/26/17 01/26/17 01/26/17 18:07 18:07 18:27 WBC 6.0 RBC 7.06 H Hgb 20.3 H* Hct 62.6 H MCV 88.6 MCH 28.7 MCHC 32.4 RDW 17.9 H Plt Count 282 MPV 8.0 Neutrophils % 53.2 Lymphocytes % 32.8 Monocytes % 9.2 Eosinophils % 2.7 Basophils % 2.1 H Platelet Estimate Adequate Platelet Comment No clumping noted RBC Morphology Sodium Cancelled Potassium Cancelled Chloride Cancelled Carbon Dioxide Cancelled Anion Gap Cancelled BUN Cancelled Creatinine Cancelled Creat Clearance w eGFR Cancelled Random Glucose Cancelled Uric Acid Calcium Cancelled Magnesium Cancelled Total Bilirubin Cancelled AST Cancelled ALT Cancelled Alkaline Phosphatase Cancelled LD Total Creatine Kinase Cancelled Troponin I Cancelled B-Natriuretic Peptide Cancelled Total Protein Cancelled Albumin Cancelled 01/26/17 01/26/17 01/26/17 19:30 19:30 19:30 WBC RBC Hgb Hct MCV MCH MCHC RDW Plt Count MPV Neutrophils % Lymphocytes % Monocytes % Eosinophils % Basophils % Platelet Estimate Platelet Comment RBC Morphology Sodium 133 L Potassium 4.4 Chloride 98 Carbon Dioxide 27 Anion Gap 8 BUN 22 H Creatinine 0.9 Creat Clearance w eGFR > 60 Random Glucose 358 H* Uric Acid 7.3 H Calcium 8.4 L Magnesium 1.9 Total Bilirubin 0.3 AST 23 ALT 46 Alkaline Phosphatase 95 LD Total 156 Creatine Kinase 92 Troponin I < 0.02 B-Natriuretic Peptide 97.37 Total Protein 6.3 L Albumin 2.9 L 01/26/17 22:30 WBC 6.8 RBC 7.13 H Hgb 20.1 H* Hct 62.8 H MCV 88.1 MCH 28.2 MCHC 32.0 RDW 17.9 H Plt Count 269 MPV 7.6 Neutrophils % Lymphocytes % Monocytes % Eosinophils % Basophils % Platelet Estimate Platelet Comment RBC Morphology Sodium Potassium Chloride Carbon Dioxide Anion Gap BUN Creatinine Creat Clearance w eGFR Random Glucose Uric Acid Calcium Magnesium Total Bilirubin AST ALT Alkaline Phosphatase LD Total Creatine Kinase Troponin I B-Natriuretic Peptide Total Protein Albumin ASSESSMENT/PLAN: 56M w/ hx of polycythemia vera, a-fib, IDDM, anxiety, HTN, HLD, schizophrenia, and klinefelter's disease who presents with worsening of chronic chest pain, found to have hematocrit of 62, admitted to telemetry for severe polycythemia and r/o ACS. #polycythemia vera -consent obtaine for therapeutic phlebotomy, removed 450cc of blood without any hemodynamic instability -monitor for hypotension, given NS bolus -hydroxyurea increased to 500mg BID. mcv is normal indicating either that he isn't taking his hydroxyurea or he also has a microytic anemia 2/2 GI blood loss. -hematology/oncology on board, Dr. Randle, f/u recs -f/u erythropoietin, LDH, Mg, uric acid -continue ASA -check EPo/JAK2 #chest pain -unlikely to be cardiac in nature. most likely MSK as it is reproducible on palpation. -1st trop negative -EKG shows no signs of acute ischemia -trend trops q6h -pain control with motrin and percocet PRN -cardiology on board, Dr. Flores, f/u recs -f/u echo, cxr, and rib xr #hyponatremia -fluids with NS -trend creatinine #IDDM -continue home insulin -ISS, BGM ACHS -continue gabapentin #a-fib -continue eliquis and dronedarone #depression -continue paxil and lorazepam #schizophrenia -continue olanzapine #chronic back pain/sciataca -continue percocet PRN #constipation -continue milk of magnesia #HTN -continue lisinopril #CHF -continue lisinopril and lasix #Klinefelter's -check testicular u/s and mammogram out patient #FEN/ppx -NS bolus -replete Na -diabetic diet -eliquis and SCDs -Adrian Chavarria MD PGY1 Visit type - Emergency Visit Emergency Visit: Yes ED Registration Date: 01/26/17 Care time: The patient presented to the Emergency Department on the above date and was hospitalized for further evaluation of their emergent condition. - New Patient This patient is new to me today: Yes Date on this admission: 01/27/17 - Critical Care Critical Care patient: No
[2017-01-27 06:29] LABS: BASOPHIL 2.6 % (0-2.0); MCH 28.6 pg (25.7-33.7); MCHC 32.3 g/dl (32.0-35.9); MEAN CELL VOLUME 88.6 fl (80-96); MEAN PLT VOLUME 7.8 fl (7.5-11.1); NEUTROPHILS 54.3 % (42.8-82.8); PLATELET COUNT 234 K/MM3 (134-434); RDW 18.1 % (11.9-15.9); WHITE BLOOD COUNT 5.4 K/mm3 (4.0-10.0)
[2017-01-27] MEDS ORDERED: GABAPENTIN 100 MG CAPSULE (FP) ONE (06:40)
[2017-01-27] MEDS: oxyCODONE HCL 5 MG TABLET PO PRN ×2 (06:55→19:55)
[2017-01-27] MEDS: GABAPENTIN 100 MG CAPSULE (FP) PO SCH ×3 (06:55→21:41)
[2017-01-27] MEDS: LORazepam 1 MG TABLET PO SCH ×3 (06:55→21:41)
[2017-01-27 06:58] LABS: ALBUMIN 2.9 g/dl (3.4-5.0); ALK PHOS 92 U/L (45-117); ANION GAP 10 (8-16); BILIRUBIN,TOTAL 0.6 mg/dL (0.2-1.0); CALCIUM 8.3 mg/dL (8.5-10.1); CO2 23 mmol/L (21-32); CREATININE 0.9 mg/dL (0.7-1.3); MAGNESIUM 1.8 mg/dL (1.8-2.4); PHOSPHOROUS 3.6 mg/dL (2.5-4.9); SGOT/AST 18 U/L (15-37); SGPT/ALT 40 U/L (12-78); TOT PROT 6.3 g/dl (6.4-8.2)
[2017-01-27 07:05] LABS: INR 1.03 (0.82-1.09); PROTHROMBIN TIME (PATIENT) 11.6 SEC (9.98-11.88)
[2017-01-27 07:08] LABS: ACTIVATED PTT 41.3 SECONDS (26.9-34.4)
[2017-01-27 07:17] LABS: GLUCOSE,RANDOM 410 mg/dL (74-106)
--- NOTE | 2017-01-27 07:38 | EKG ---
Test Reason : Blood Pressure : / mmHG Vent. Rate : 090 BPM Atrial Rate : 090 BPM P-R Int : 152 ms QRS Dur : 078 ms QT Int : 358 ms P-R-T Axes : 055 062 102 degrees QTc Int : 437 ms NORMAL SINUS RHYTHM POSSIBLE LEFT ATRIAL ENLARGEMENT SEPTAL INFARCT , AGE UNDETERMINED ABNORMAL ECG NO PREVIOUS ECGS AVAILABLE Confirmed by AILIN GILL MD ([id number]) on 01/27/2017 7:37:41 AM Referred By: Confirmed By:AILIN GILL MD
[2017-01-27] MEDS ORDERED: INSULIN DETEMIR 100 UNITS/ML MDV SQ ONE (08:42)
[2017-01-27] MEDS ORDERED: INSULIN (NOVOLOG) ASPART 100 UNITS/ML 10ML VIAL ONE ×4 (08:43→21:17)
[2017-01-27] MEDS: INSULIN SLIDING SCALE (NOVOLOG) 1 VIAL SQ SCH ×5 (08:48→21:42)
[2017-01-27] MEDS: INSULIN DETEMIR 100 UNITS/ML MDV SQ SCH (08:48)
[2017-01-27] MEDS ORDERED: PARoxetine HCL 30 MG TABLET PO SCH (10:00)
[2017-01-27] MEDS ORDERED: PARoxetine HCL 20 MG TABLET (FP) PO SCH (10:00)
[2017-01-27 11:13] VITALS: BMI 33.1
[2017-01-27] MEDS ORDERED: PNEUMOC 13-VAL CONJ-DIP CRM/PF 0.5 ML DISP.SYRIN IM ONE (11:13)
[2017-01-27] MEDS: LORATADINE 10 MG TABLET PO SCH (12:33)
[2017-01-27] MEDS: APIXABAN 5 MG TABLET PO SCH ×2 (12:33→21:41)
[2017-01-27] MEDS: HYDROXYUREA 500 MG CAPSULE PO SCH ×2 (12:33→21:41)
[2017-01-27] MEDS: FUROSEMIDE 20 MG TABLET (FP) PO SCH (12:34)
[2017-01-27] MEDS: DRONEDARONE HCL 400 MG TAB (FP) PO SCH ×2 (12:34→22:51)
[2017-01-27] MEDS: PARoxetine HCL 20 MG TABLET (FP) PO SCH (12:34)
[2017-01-27] MEDS: LISINOPRIL 20 MG TABLET (FP) PO SCH (12:34)
[2017-01-27] MEDS: OLANZapine 5 MG TABLET PO SCH (12:34)
[2017-01-27] MEDS: MAGNESIUM OXIDE 400 MG TABLET (FP) PO SCH (12:34)
--- NOTE | 2017-01-27 12:52 | CON.CARD ---
Consult Consult Specialty:: Cardiology Referred by:: Hospitalist Reason for Consultation:: Cardiac evaluation - History of Present Illness Chief Complaint: Chest pain History of Present Illness: Patient is a 56 year old male with underlying history of polycythemia vera, paroxysmal atrial fibrillation, IDDM, anxiety, hypertension, hypercholesterolemia, schizophrenia and Klinefelter's disease who presents with left sided sharp chest pain radiation to left arm. He denies shortness of breath or palpitation. He denies paroxysmal nocturnal dyspnea or orthopnea. He denies fever or chills. He denies nausea, vomiting, diarrhea or abdominal pain. He denies headache or lightheadedness. No prior syncope. He reports falling on left shoulder 2 weeks ago. Patient has been followed by Occupational Therapy Co Director at [facility], however, since staying at [facility], he has not seen his licensed staff mft or his video manager (Dr. Richmond Giraldo of [facility]) for the past 8 months. Patient was found to have elevated hemoglobin and hematocrit requiring phlebotomy. - History Source History Provided By: Patient, Medical Record Limitations to Obtaining History: No Limitations - Past Medical History Cardio/Vascular: Yes: AFIB, HTN, Hyperlipdemia Heme/Onc: Yes: Other (Polycythemia vera) Psych: Yes: Schizophrenia Endocrine: Yes: Diabetes Mellitus Additional Medical History: Klinefelter's disease - Smoking History Smoking history: Never smoked Home Medications - Allergies Allergies/Adverse Reactions: Allergies Allergy/AdvReac Type Severity Reaction Status Date / Time cephalexin Allergy Verified 01/26/17 16:45 chicken derived Allergy Verified 01/26/17 16:45 cinnamon Allergy Verified 01/26/17 16:45 codeine Allergy Verified 01/26/17 16:46 egg Allergy Verified 01/26/17 16:46 gabapentin Allergy Verified 01/26/17 16:46 hydrochlorothiazide Allergy Verified 01/26/17 16:46 levothyroxine Allergy Verified 01/26/17 16:46 onion Allergy Verified 01/26/17 16:46 - Home Medications Home Medications: Ambulatory Orders Albuterol 0.083% Nebulizer Anabel [Ventolin 0.083%] 1 neb NEB QID PRN 01/26/17 Apixaban [Eliquis] 5 mg PO BID 01/26/17 Dronedarone HCl [Multaq] 400 mg PO BID 01/26/17 Fluticasone Prop 0.05% Nasal [Flonase -] 2 sprays NS DAILY 01/26/17 Furosemide [Lasix] 20 mg PO DAILY 01/26/17 Gabapentin 100 mg PO TID 01/26/17 Hydroxyurea [Hydrea -] 500 mg PO DAILY 01/26/17 Ibuprofen 400 mg PO TID PRN 01/26/17 Insulin Glargine,Hum.rec.anlog [Lantus Solostar PEN (NF)] 65 units SQ DAILY 09/06 Lisinopril [Prinivil] 20 mg PO DAILY 01/26/17 Loratadine [Claritin] 10 mg PO DAILY 01/26/17 Lorazepam 2 mg PO TID 01/26/17 Mag Hydrox/Al Hydrox/Simeth [Mylanta *Suspension*] 20 ml PO Q6H PRN 01/26/17 Magnesium Hydroxide [Milk of Magnesia] 30 ml PO DAILY PRN 01/26/17 Melatonin 3 mg PO HS 01/26/17 Mupirocin Cream [Bactroban 2% Cream -] 1 applic TP BID 01/26/17 Na Phos,M-B/Na Phos,Di-Ba [Fleet Enema] 133 ml RC ONCE PRN 01/26/17 Nystatin Cream [Mycostatin] 1 applic TP BID 01/26/17 Olanzapine 5 mg PO DAILY 01/26/17 Oxycodone HCl/Acetaminophen [Percocet 5-325 mg Tablet] 1 tab PO Q8H PRN Paroxetine HCl 50 mg PO DAILY 01/26/17 Phenyleph/Pramoxin/Glycr/W.pet [Preparation H Cream] 26 gm RC BID PRN 01/26/17 Pramoxine HCl/Calamine [Caladryl 1%-8% Lotion] 177 ml TP TID 01/26/17 Aspirin [ASA -] 81 mg PO DAILY 01/27/17 Dextromethorphan HBr/B-Zhao [Cepacol Sorethroat-Cough Jaden] 1 each PO ASDIR PRN 01/27/17 Duloxetine HCl [Cymbalta] 20 mg PO DAILY 01/27/17 Ergocalciferol (Vitamin D2) [Vitamin D2] 50,000 unit PO FR 01/27/17 Insulin Lispro [Humalog] 0 unit SQ TID PRN 01/27/17 Review of Systems - Review of Systems Constitutional: denies: Chills, Fever Cardiovascular: reports: Chest Pain. denies: Palpitations, Shortness of Breath Respiratory: denies: Cough, Hemoptysis, Orthopnea, PND, SOB, SOB on Exertion Gastrointestinal: denies: Abdominal Pain, Constipation, Diarrhea, Melena, Nausea , Rectal Bleeding, Vomiting Musculoskeletal: denies: Joint Pain Neurological: denies: Dizziness, Headache, Seizure, Syncope Vital Signs: Vital Signs Temperature 97.7 F 01/26/17 16:41 Pulse Rate 88 01/27/17 11:05 Respiratory Rate 18 01/27/17 11:05 Blood Pressure 145/75 01/27/17 11:05 O2 Sat by Pulse Oximetry (%) 93 L 01/27/17 11:05 Neck: Yes: Supple Respiratory: Yes: CTA Bilaterally Gastrointestinal: Yes: Normal Bowel Sounds, Soft. No: Tenderness Cardiovascular: Yes: Regular Rate and Rhythm JVD: No Carotid Bruit: No PMI: Non-Displaced Heart Sounds: Yes: S1, S2. No: Gallop Murmur: Yes: Systolic Murmur, Grade 1 Edema: No - Other Data Labs, Other Data: CBC, BMP 01/27/17 06:02 01/27/17 06:02 INR, PTT INR 1.03 (0.82-1.09) 01/27/17 06:02 Troponin, BNP 01/27/17 06:02 Troponin I < 0.02 Laboratory Results - last 24 hr 01/26/17 01/26/17 01/26/17 18:07 18:07 18:27 WBC 6.0 RBC 7.06 H Hgb 20.3 H* Hct 62.6 H MCV 88.6 MCH 28.7 MCHC 32.4 RDW 17.9 H Plt Count 282 MPV 8.0 Neutrophils % 53.2 Lymphocytes % 32.8 Monocytes % 9.2 Eosinophils % 2.7 Basophils % 2.1 H Platelet Estimate Adequate Platelet Comment No clumping noted RBC Morphology PT with INR INR PTT (Actin FS) Sodium Cancelled Potassium Cancelled Chloride Cancelled Carbon Dioxide Cancelled Anion Gap Cancelled BUN Cancelled Creatinine Cancelled Creat Clearance w eGFR Cancelled Random Glucose Cancelled Uric Acid Calcium Cancelled Phosphorus Magnesium Cancelled Total Bilirubin Cancelled AST Cancelled ALT Cancelled Alkaline Phosphatase Cancelled LD Total Creatine Kinase Cancelled Troponin I Cancelled B-Natriuretic Peptide Cancelled Total Protein Cancelled Albumin Cancelled 01/26/17 01/26/17 01/26/17 19:30 19:30 19:30 WBC RBC Hgb Hct MCV MCH MCHC RDW Plt Count MPV Neutrophils % Lymphocytes % Monocytes % Eosinophils % Basophils % Platelet Estimate Platelet Comment RBC Morphology PT with INR INR PTT (Actin FS) Sodium 133 L Potassium 4.4 Chloride 98 Carbon Dioxide 27 Anion Gap 8 BUN 22 H Creatinine 0.9 Creat Clearance w eGFR > 60 Random Glucose 358 H* Uric Acid 7.3 H Calcium 8.4 L Phosphorus Magnesium 1.9 Total Bilirubin 0.3 AST 23 ALT 46 Alkaline Phosphatase 95 LD Total 156 Creatine Kinase 92 Troponin I < 0.02 B-Natriuretic Peptide 97.37 Total Protein 6.3 L Albumin 2.9 L 01/26/17 01/27/17 01/27/17 22:30 06:02 06:02 WBC 6.8 5.4 RBC 7.13 H 6.76 H Hgb 20.1 H* 19.3 H Hct 62.8 H 59.9 H MCV 88.1 88.6 MCH 28.2 28.6 MCHC 32.0 32.3 RDW 17.9 H 18.1 H Plt Count 269 234 MPV 7.6 7.8 Neutrophils % 54.3 Lymphocytes % 29.8 Monocytes % 9.3 Eosinophils % 4.0 Basophils % 2.6 H Platelet Estimate Platelet Comment RBC Morphology PT with INR 11.60 INR 1.03 PTT (Actin FS) 41.3 H Sodium Potassium Chloride Carbon Dioxide Anion Gap BUN Creatinine Creat Clearance w eGFR Random Glucose Uric Acid Calcium Phosphorus Magnesium Total Bilirubin AST ALT Alkaline Phosphatase LD Total Creatine Kinase Troponin I B-Natriuretic Peptide Total Protein Albumin 01/27/17 01/27/17 06:02 06:02 WBC RBC Hgb Hct MCV MCH MCHC RDW Plt Count MPV Neutrophils % Lymphocytes % Monocytes % Eosinophils % Basophils % Platelet Estimate Platelet Comment RBC Morphology PT with INR INR PTT (Actin FS) Sodium 136 Potassium 4.9 Chloride 103 Carbon Dioxide 23 Anion Gap 10 BUN 20 H Creatinine 0.9 Creat Clearance w eGFR > 60 Random Glucose 410 H* Uric Acid Calcium 8.3 L Phosphorus 3.6 Magnesium 1.8 Total Bilirubin 0.6 D AST 18 D ALT 40 Alkaline Phosphatase 92 LD Total Creatine Kinase Troponin I < 0.02 B-Natriuretic Peptide Total Protein 6.3 L Albumin 2.9 L Echo: Report Reviewed Problem List - Problems (1) Atrial fibrillation Code(s): I48.91 - UNSPECIFIED ATRIAL FIBRILLATION Qualifiers: Atrial fibrillation type: paroxysmal Qualified Code(s): I48.0 - Paroxysmal atrial fibrillation; I48.0 - Paroxysmal atrial fibrillation; I48.0 - Paroxysmal atrial fibrillation; I48.0 - Paroxysmal atrial fibrillation (2) Atypical chest pain Code(s): R07.89 - OTHER CHEST PAIN (3) HLD (hyperlipidemia) Code(s): E78.5 - HYPERLIPIDEMIA, UNSPECIFIED Qualifiers: Hyperlipidemia type: pure hypercholesterolemia Qualified Code(s): E78.00 - Pure hypercholesterolemia, unspecified; E78.00 - Pure hypercholesterolemia, unspecified; E78.00 - Pure hypercholesterolemia, unspecified; E78.0 - Pure hypercholesterolemia (4) HTN (hypertension) Code(s): I10 - ESSENTIAL (PRIMARY) HYPERTENSION Qualifiers: Hypertension type: essential hypertension Qualified Code(s): I10 - Essential (primary) hypertension; I10 - Essential (primary) hypertension; I10 - Essential (primary) hypertension (5) IDDM (insulin dependent diabetes mellitus) Code(s): E11.9 - TYPE 2 DIABETES MELLITUS WITHOUT COMPLICATIONS Z79.4 - LONG-TERM (CURRENT) USE OF INSULIN (6) Polycythemia vera Code(s): D45 - POLYCYTHEMIA VERA Assessment/Plan 1. Chest pain syndrome, atypical, possibly related to PV 2. History of polycytemia vera 3. Hypertension 4. Hypercholesterolemia 5. History of PAF - no on any anticoagulation 6. Hypertension 7. Hypercholesterolemia 8. IDDM 9. Kleinfelter's disease PLAN: 1. Transthoracic echocardiography reviewed - shows LV cavity obliteration otherwise no signifcant valvular heart disease 2. Continue Eliquis 5 mg BID 3. Continue Multaq 400 mg BID 4. Continue Hyroxyurea 5. Continue Prinivil 6. Add low dose beta sukhjinder as tolerated. Metoprolo 25 mg BID Further plans are to follow Selwyn Palacio MD
--- NOTE | 2017-01-27 13:02 | PN ---
Progress Note (short form) - Note Progress Note: Hematology Pt seen and examined feels better than yesterday Cor: RSR, No murmurs, No gallops Lungs: Clear to P&A Abd: Soft, Normal bowel sounds, No organomegaly Ext:No significant edema Skin: No rashes, Integument intact Last Vital Signs Temp Pulse Resp BP Pulse Ox 97.7 F 88 18 145/75 93 L 01/26/17 16:41 01/27/17 11:05 01/27/17 11:05 01/27/17 11:05 01/27/17 11:05 CBC, BMP 01/27/17 06:02 01/27/17 06:02 Current Medications Generic Name Dose Route Start Last Admin Trade Name Freq PRN Reason Stop Dose Admin Al Hydroxide/Mg Hydroxide 30 ml 01/26/17 23:59 Mylanta Oral Suspension - PO Q6H PRN DIARRHEA Albuterol/Ipratropium 1 amp 01/27/17 00:11 Duoneb - NEB Q8H PRN SHORT OF BREATH/WHEEZING Apixaban 5 mg 01/27/17 10:00 01/27/17 12:33 Eliquis - PO 5 mg BID ANCA Administration Aspirin 81 mg 01/28/17 10:00 Ecotrin - PO DAILY ANCA Dronedarone 400 mg 01/27/17 10:00 01/27/17 12:34 Multaq - PO 400 mg BID ANCA Administration Furosemide 20 mg 01/27/17 10:00 01/27/17 12:34 Lasix - PO 20 mg DAILY ANCA Administration Gabapentin 100 mg 01/27/17 06:00 01/27/17 06:55 Neurontin - PO 100 mg TID ANCA Administration Hydroxyurea 500 mg 01/27/17 10:00 01/27/17 12:33 Hydrea - PO 500 mg BID ANCA Administration Insulin Aspart 1 vial 01/27/17 07:00 01/27/17 08:48 Novolog Vial Sliding Scale - SQ 8 unit ACHS ANCA Administration Protocol Insulin Detemir 65 units 01/27/17 07:00 01/27/17 08:48 Levemir Vial SQ 65 unit DAILY@0700 ANCA Administration Lisinopril 20 mg 01/27/17 10:00 01/27/17 12:34 Prinivil PO 20 mg DAILY ANCA Administration Loratadine 10 mg 01/27/17 10:00 01/27/17 12:33 Claritin - PO 10 mg DAILY ANCA Administration Lorazepam 2 mg 01/27/17 06:00 01/27/17 06:55 Ativan - PO 2 mg TID ANCA Administration Magnesium Hydroxide 30 ml 01/26/17 23:59 Milk Of Magnesia - PO DAILY PRN CONSTIPATION Magnesium Oxide 400 mg 01/27/17 10:00 01/27/17 12:34 Mag-Ox - PO 400 mg DAILY ANCA Administration Melatonin 3 mg 01/27/17 22:00 Melatonin PO HS ANCA Olanzapine 5 mg 01/27/17 10:00 01/27/17 12:34 Zyprexa - PO 5 mg DAILY ANCA Administration Oxycodone HCl 5 mg 01/27/17 00:33 01/27/17 06:55 Roxicodone - PO 5 mg Q12H PRN Administration PAIN Paroxetine HCl 50 mg 01/27/17 10:00 01/27/17 12:34 Paxil - PO 50 mg DAILY ANCA Administration Pneumococcal Polyvalent Vaccine 0.5 ml 01/27/17 12:30 Pneumovax - IM 01/27/17 12:31 .ONCE ONE polycythemia vera off of Phlebotomy symptoms of hyper viscosity pAfib on eliquis Hold off on further phlebotomy, he got one unit removed yesterda cw hydrea and aspirin gentle hydration daily CBC testicular US as an OP cards note reviewed. Problem List - Problems (1) Polycythemia vera Code(s): D45 - POLYCYTHEMIA VERA (2) Atypical chest pain Code(s): R07.89 - OTHER CHEST PAIN (3) HTN (hypertension) Code(s): I10 - ESSENTIAL (PRIMARY) HYPERTENSION Qualifiers: Hypertension type: essential hypertension Qualified Code(s): I10 - Essential (primary) hypertension; I10 - Essential (primary) hypertension; I10 - Essential (primary) hypertension
[2017-01-27] MEDS ORDERED: LORazepam 0.5 MG TABLET ONE (14:06)
[2017-01-27] MEDS: SODIUM CHLORIDE 1,000 ML IV SCH (18:27)
[2017-01-27] MEDS: METOPROLOL TARTRATE 25 MG TABLET (FP) PO SCH (22:50)
[2017-01-27] MEDS: MELATONIN 1 MG TABLET PO SCH (22:51)
[2017-01-28] MEDS: oxyCODONE HCL 5 MG TABLET PO PRN ×2 (08:02→22:15)
--- NOTE | 2017-01-28 09:49 | PN ---
Progress Note, Physician Chief Complaint: pt ambulating the hallways He feels well spoke with Oncology - Current Medication List Current Medications: Active Medications Al Hydroxide/Mg Hydroxide (Mylanta Oral Suspension -) 30 ml PO Q6H PRN PRN Reason: DIARRHEA Albuterol/Ipratropium (Duoneb -) 1 amp NEB Q8H PRN PRN Reason: SHORT OF BREATH/WHEEZING Apixaban (Eliquis -) 5 mg PO BID [facility] Last Admin: 01/27/17 21:41 Dose: 5 mg Aspirin (Ecotrin -) 81 mg PO DAILY [facility] Dronedarone (Multaq -) 400 mg PO BID [facility] Last Admin: 01/27/17 22:51 Dose: 400 mg Furosemide (Lasix -) 20 mg PO DAILY [facility] Last Admin: 01/27/17 12:34 Dose: 20 mg Gabapentin (Neurontin -) 100 mg PO TID [facility] Last Admin: 01/27/17 21:41 Dose: 100 mg Hydroxyurea (Hydrea -) 500 mg PO BID [facility] Last Admin: 01/27/17 21:41 Dose: 500 mg Sodium Chloride (Normal Saline -) 1,000 mls @ 75 mls/hr IV ASDIR [facility] Last Admin: 01/27/17 18:27 Dose: 75 mls/hr Insulin Aspart (Novolog Vial Sliding Scale -) 1 vial SQ ACHS [facility] PRN Reason: Protocol Last Admin: 01/27/17 21:42 Dose: 6 unit Insulin Detemir (Levemir Vial) 65 units SQ DAILY@0700 [facility] Last Admin: 01/27/17 08:48 Dose: 65 unit Lisinopril (Prinivil) 20 mg PO DAILY [facility] Last Admin: 01/27/17 12:34 Dose: 20 mg Loratadine (Claritin -) 10 mg PO DAILY [facility] Last Admin: 01/27/17 12:33 Dose: 10 mg Lorazepam (Ativan -) 2 mg PO TID [facility] Last Admin: 01/27/17 21:41 Dose: 2 mg Magnesium Hydroxide (Milk Of Magnesia -) 30 ml PO DAILY PRN PRN Reason: CONSTIPATION Magnesium Oxide (Mag-Ox -) 400 mg PO DAILY [facility] Last Admin: 01/27/17 12:34 Dose: 400 mg Melatonin (Melatonin) 3 mg PO HS [facility] Last Admin: 01/27/17 22:51 Dose: 3 mg Metoprolol Tartrate (Lopressor -) 25 mg PO BID [facility] Last Admin: 01/27/17 22:50 Dose: 25 mg Olanzapine (Zyprexa -) 5 mg PO DAILY [facility] Last Admin: 01/27/17 12:34 Dose: 5 mg Oxycodone HCl (Roxicodone -) 5 mg PO Q12H PRN PRN Reason: PAIN Last Admin: 01/28/17 08:02 Dose: 5 mg Paroxetine HCl (Paxil -) 50 mg PO DAILY [facility] Last Admin: 01/27/17 12:34 Dose: 50 mg Pneumococcal Polyvalent Vaccine (Pneumovax -) 0.5 ml IM .ONCE ONE Stop: 01/28/17 10:01 - Objective Vital Signs: Vital Signs Temperature 97.6 F 01/28/17 02:00 Pulse Rate 60 01/28/17 02:00 Respiratory Rate 18 01/28/17 02:00 Blood Pressure 117/69 01/28/17 02:00 O2 Sat by Pulse Oximetry (%) 95 01/27/17 22:37 Constitutional: Yes: No Distress, Calm Cardiovascular: Yes: Pulse Irregular Respiratory: Yes: CTA Bilaterally Gastrointestinal: Yes: Normal Bowel Sounds, Soft. No: Tenderness Edema: No Labs: CBC, BMP 01/27/17 06:02 01/27/17 06:02 INR, PTT INR 1.03 (0.82-1.09) 01/27/17 06:02 Problem List - Problems (1) Atrial fibrillation Code(s): I48.91 - UNSPECIFIED ATRIAL FIBRILLATION Qualifiers: Atrial fibrillation type: paroxysmal Qualified Code(s): I48.0 - Paroxysmal atrial fibrillation (2) Atypical chest pain Code(s): R07.89 - OTHER CHEST PAIN (3) HTN (hypertension) Code(s): I10 - ESSENTIAL (PRIMARY) HYPERTENSION Qualifiers: Hypertension type: essential hypertension Qualified Code(s): I10 - Essential (primary) hypertension (4) Hyperviscosity Code(s): D75.9 - DISEASE OF BLOOD AND BLOOD-FORMING ORGANS, UNSPECIFIED (5) Polycythemia vera Code(s): D45 - POLYCYTHEMIA VERA Assessment/Plan PLAN spoke with Oncology-- will phlebotomize him today will need follow at [facility] weekly for phlebotomies chest pain not cardiac per Cardiology he has no SOB no further chest pain continue meds-- ASA, eliquis, hydrea
[2017-01-28] MEDS ORDERED: PT OWN MED DRAWER 7, Y5N ONE ×3 (09:54→21:52)
[2017-01-28] MEDS ORDERED: PNEUMOCOCCAL 23 VACCINE 0.5 ML VIAL IM ONE (10:00)
[2017-01-28] MEDS: MAGNESIUM OXIDE 400 MG TABLET (FP) PO SCH (10:03)
[2017-01-28] MEDS: FUROSEMIDE 20 MG TABLET (FP) PO SCH (10:03)
[2017-01-28] MEDS: LISINOPRIL 20 MG TABLET (FP) PO SCH (10:03)
[2017-01-28] MEDS: ASPIRIN COATED 81 MG TABLET.EC PO SCH (10:03)
[2017-01-28] MEDS: PARoxetine HCL 20 MG TABLET (FP) PO SCH (10:03)
[2017-01-28] MEDS: OLANZapine 5 MG TABLET PO SCH (10:03)
[2017-01-28] MEDS: LORATADINE 10 MG TABLET PO SCH (10:03)
[2017-01-28] MEDS: METOPROLOL TARTRATE 25 MG TABLET (FP) PO SCH ×2 (10:03→22:13)
[2017-01-28] MEDS: HYDROXYUREA 500 MG CAPSULE PO SCH ×2 (10:04→22:13)
[2017-01-28] MEDS: APIXABAN 5 MG TABLET PO SCH ×2 (10:04→22:14)
[2017-01-28] MEDS: DRONEDARONE HCL 400 MG TAB (FP) PO SCH ×2 (10:11→22:13)
--- NOTE | 2017-01-28 10:52 | PN ---
Progress Note, Physician History of Present Illness: Denies recurrence of chest pain and dyspnea. - Current Medication List Current Medications: Active Medications Al Hydroxide/Mg Hydroxide (Mylanta Oral Suspension -) 30 ml PO Q6H PRN PRN Reason: DIARRHEA Albuterol/Ipratropium (Duoneb -) 1 amp NEB Q8H PRN PRN Reason: SHORT OF BREATH/WHEEZING Apixaban (Eliquis -) 5 mg PO BID [facility] Last Admin: 01/28/17 10:04 Dose: 5 mg Aspirin (Ecotrin -) 81 mg PO DAILY [facility] Last Admin: 01/28/17 10:03 Dose: 81 mg Dronedarone (Multaq -) 400 mg PO BID [facility] Last Admin: 01/28/17 10:11 Dose: 400 mg Furosemide (Lasix -) 20 mg PO DAILY [facility] Last Admin: 01/28/17 10:03 Dose: 20 mg Gabapentin (Neurontin -) 100 mg PO TID [facility] Last Admin: 01/27/17 21:41 Dose: 100 mg Hydroxyurea (Hydrea -) 500 mg PO BID [facility] Last Admin: 01/28/17 10:04 Dose: 500 mg Sodium Chloride (Normal Saline -) 1,000 mls @ 75 mls/hr IV ASDIR [facility] Last Admin: 01/27/17 18:27 Dose: 75 mls/hr Insulin Aspart (Novolog Vial Sliding Scale -) 1 vial SQ ACHS [facility] PRN Reason: Protocol Last Admin: 01/27/17 21:42 Dose: 6 unit Insulin Detemir (Levemir Vial) 65 units SQ DAILY@0700 [facility] Last Admin: 01/27/17 08:48 Dose: 65 unit Lisinopril (Prinivil) 20 mg PO DAILY [facility] Last Admin: 01/28/17 10:03 Dose: 20 mg Loratadine (Claritin -) 10 mg PO DAILY [facility] Last Admin: 01/28/17 10:03 Dose: 10 mg Lorazepam (Ativan -) 2 mg PO TID [facility] Last Admin: 01/27/17 21:41 Dose: 2 mg Magnesium Hydroxide (Milk Of Magnesia -) 30 ml PO DAILY PRN PRN Reason: CONSTIPATION Magnesium Oxide (Mag-Ox -) 400 mg PO DAILY [facility] Last Admin: 01/28/17 10:03 Dose: 400 mg Melatonin (Melatonin) 3 mg PO HS [facility] Last Admin: 01/27/17 22:51 Dose: 3 mg Metoprolol Tartrate (Lopressor -) 25 mg PO BID [facility] Last Admin: 01/28/17 10:03 Dose: 25 mg Olanzapine (Zyprexa -) 5 mg PO DAILY [facility] Last Admin: 01/28/17 10:03 Dose: 5 mg Oxycodone HCl (Roxicodone -) 5 mg PO Q12H PRN PRN Reason: PAIN Last Admin: 01/28/17 08:02 Dose: 5 mg Paroxetine HCl (Paxil -) 50 mg PO DAILY [facility] Last Admin: 01/28/17 10:03 Dose: 50 mg - Objective Vital Signs: Vital Signs Temperature 98 F 01/28/17 10:00 Pulse Rate 74 01/28/17 10:00 Respiratory Rate 18 01/28/17 10:00 Blood Pressure 140/88 01/28/17 10:00 O2 Sat by Pulse Oximetry (%) 95 01/27/17 22:37 Constitutional: Yes: No Distress, Calm Neck: Yes: Supple Cardiovascular: Yes: Regular Rate and Rhythm Respiratory: Yes: Regular, CTA Bilaterally Gastrointestinal: Yes: Normal Bowel Sounds, Soft Edema: No Labs: CBC, BMP 01/27/17 06:02 INR, PTT INR 1.03 (0.82-1.09) 01/27/17 06:02 - ....Imaging EKG: Report Reviewed (Tele: NSR) Problem List - Problems (1) Diabetic neuropathy Code(s): E11.40 - TYPE 2 DIABETES MELLITUS WITH DIABETIC NEUROPATHY, UNSP Qualifiers: Diabetes mellitus type: type 2 Diabetes mellitus complication detail: diabetic polyneuropathy Qualified Code(s): E11.42 - Type 2 diabetes mellitus with diabetic polyneuropathy (2) Klinefelter syndrome Code(s): Q98.4 - KLINEFELTER SYNDROME, UNSPECIFIED (3) Atrial fibrillation Code(s): I48.91 - UNSPECIFIED ATRIAL FIBRILLATION Qualifiers: Atrial fibrillation type: paroxysmal Qualified Code(s): I48.0 - Paroxysmal atrial fibrillation (4) Atypical chest pain Code(s): R07.89 - OTHER CHEST PAIN (5) HLD (hyperlipidemia) Code(s): E78.5 - HYPERLIPIDEMIA, UNSPECIFIED Qualifiers: Hyperlipidemia type: pure hypercholesterolemia Qualified Code(s): E78.00 - Pure hypercholesterolemia, unspecified (6) HTN (hypertension) Code(s): I10 - ESSENTIAL (PRIMARY) HYPERTENSION Qualifiers: Hypertension type: essential hypertension Qualified Code(s): I10 - Essential (primary) hypertension (7) IDDM (insulin dependent diabetes mellitus) Code(s): E11.9 - TYPE 2 DIABETES MELLITUS WITHOUT COMPLICATIONS; Z79.4 - APPLIANCE MECHANIC (CURRENT) USE OF INSULIN (8) Polycythemia vera Code(s): D45 - POLYCYTHEMIA VERA (9) Hyperviscosity Code(s): D75.9 - DISEASE OF BLOOD AND BLOOD-FORMING ORGANS, UNSPECIFIED Assessment/Plan Echo: Normal LV size with hyperdynamic LV fxn, normal RV size and fxn, mild [place] 1. Chest pain syndrome, atypical 2. History of polycytemia vera with hyperviscosity syndrome 3. Hypertension 4. Hypercholesterolemia 5. History of PAF - placed on Eliquis 6. Hypertension 7. Hypercholesterolemia 8. IDDM with peripheral neuropathy 9. Kleinfelter's disease PLAN: 1. Transthoracic echocardiography reviewed - shows LV cavity obliteration otherwise no signifcant valvular heart disease 2. Continue Eliquis 5 mg BID and ASA 81 qd 3. Continue Multaq 400 mg BID 4. Continue Hydroxyurea 500 bid 5. Continue Prinivil 20 qd and d/c Lasix 20 qd 6. Continue Metoprolol 25 mg BID 7. D/c telemetry
[2017-01-28 10:57] LABS: MCH 28.5 pg (25.7-33.7); MCHC 32.2 g/dl (32.0-35.9); MEAN CELL VOLUME 88.4 fl (80-96); MEAN PLT VOLUME 7.5 fl (7.5-11.1); PLATELET COUNT 252 K/MM3 (134-434); RDW 18.2 % (11.9-15.9); WHITE BLOOD COUNT 5.8 K/mm3 (4.0-10.0)
--- NOTE | 2017-01-28 11:19 | DS ---
Physical Examination Vital Signs: Vital Signs Temperature 98 F 01/28/17 10:00 Pulse Rate 74 01/28/17 10:00 Respiratory Rate 18 01/28/17 10:00 Blood Pressure 140/88 01/28/17 10:00 O2 Sat by Pulse Oximetry (%) 95 01/27/17 22:37 Labs: CBC, BMP 01/28/17 10:30 01/27/17 06:02 Discharge Summary Reason For Visit: CHEST PAIN,POLYCYTHEMIA VERA Current Active Problems Atrial fibrillation (Acute) Atypical chest pain (Acute) Chest pain (Acute) Diabetic neuropathy (Acute) HLD (hyperlipidemia) (Acute) HTN (hypertension) (Acute) Hyperviscosity (Acute) IDDM (insulin dependent diabetes mellitus) (Acute) Klinefelter syndrome (Acute) Polycythemia vera (Acute) Condition: Improved - Instructions Referrals: Franki Pena MD [Primary Care Provider] - - Home Medications Comprehensive Discharge Medication List: Ambulatory Orders Albuterol 0.083% Nebulizer Anabel [Ventolin 0.083%] 1 neb NEB QID PRN 01/26/17 Apixaban [Eliquis] 5 mg PO BID 01/26/17 Dronedarone HCl [Multaq] 400 mg PO BID 01/26/17 Fluticasone Prop 0.05% Nasal [Flonase -] 2 sprays NS DAILY 01/26/17 Furosemide [Lasix] 20 mg PO DAILY 01/26/17 Gabapentin 100 mg PO TID 01/26/17 Hydroxyurea [Hydrea -] 500 mg PO DAILY 01/26/17 Ibuprofen 400 mg PO TID PRN 01/26/17 Insulin Glargine,Hum.rec.anlog [Lantus Solostar PEN (NF)] 65 units SQ DAILY 09/06 Lisinopril [Prinivil] 20 mg PO DAILY 01/26/17 Loratadine [Claritin] 10 mg PO DAILY 01/26/17 Lorazepam 2 mg PO TID 01/26/17 Mag Hydrox/Al Hydrox/Simeth [Mylanta *Suspension*] 20 ml PO Q6H PRN 01/26/17 Magnesium Hydroxide [Milk of Magnesia] 30 ml PO DAILY PRN 01/26/17 Melatonin 3 mg PO HS 01/26/17 Mupirocin Cream [Bactroban 2% Cream -] 1 applic TP BID 01/26/17 Na Phos,M-B/Na Phos,Di-Ba [Fleet Enema] 133 ml RC ONCE PRN 01/26/17 Nystatin Cream [Mycostatin] 1 applic TP BID 01/26/17 Olanzapine 5 mg PO DAILY 01/26/17 Oxycodone HCl/Acetaminophen [Percocet 5-325 mg Tablet] 1 tab PO Q8H PRN Paroxetine HCl 50 mg PO DAILY 01/26/17 Phenyleph/Pramoxin/Glycr/W.pet [Preparation H Cream] 26 gm RC BID PRN 01/26/17 Pramoxine HCl/Calamine [Caladryl 1%-8% Lotion] 177 ml TP TID 01/26/17 Aspirin [ASA -] 81 mg PO DAILY 01/27/17 Dextromethorphan HBr/B-Zhao [Cepacol Sorethroat-Cough Jaden] 1 each PO ASDIR PRN 01/27/17 Duloxetine HCl [Cymbalta] 20 mg PO DAILY 01/27/17 Ergocalciferol (Vitamin D2) [Vitamin D2] 50,000 unit PO FR 01/27/17 Insulin Lispro [Humalog] 0 unit SQ TID PRN 01/27/17
[2017-01-28] MEDS: INSULIN SLIDING SCALE (NOVOLOG) 1 VIAL SQ SCH ×3 (12:35→22:15)
[2017-01-28] MEDS: SODIUM CHLORIDE 1,000 ML IV SCH ×2 (13:00→18:39)
--- NOTE | 2017-01-28 13:41 | PN ---
Progress Note (short form) - Note Progress Note: Hematology Pt seen and examined feels the same as yesterday. no further chest pain Cor: RSR, No murmurs, No gallops Lungs: Clear to P&A Abd: Soft, Normal bowel sounds, No organomegaly Ext:No significant edema Skin: No rashes, Integument intact Last Vital Signs Temp Pulse Resp BP Pulse Ox 97.7 F 88 18 145/75 93 L 01/26/17 16:41 01/27/17 11:05 01/27/17 11:05 01/27/17 11:05 01/27/17 11:05 CBC, BMP 01/27/17 06:02 01/27/17 06:02 Current Medications Generic Name Dose Route Start Last Admin Trade Name Freq PRN Reason Stop Dose Admin Al Hydroxide/Mg Hydroxide 30 ml 01/26/17 23:59 Mylanta Oral Suspension - PO Q6H PRN DIARRHEA Albuterol/Ipratropium 1 amp 01/27/17 00:11 Duoneb - NEB Q8H PRN SHORT OF BREATH/WHEEZING Apixaban 5 mg 01/27/17 10:00 01/27/17 12:33 Eliquis - PO 5 mg BID ANCA Administration Aspirin 81 mg 01/28/17 10:00 Ecotrin - PO DAILY ANCA Dronedarone 400 mg 01/27/17 10:00 01/27/17 12:34 Multaq - PO 400 mg BID ANCA Administration Furosemide 20 mg 01/27/17 10:00 01/27/17 12:34 Lasix - PO 20 mg DAILY ANCA Administration Gabapentin 100 mg 01/27/17 06:00 01/27/17 06:55 Neurontin - PO 100 mg TID ANCA Administration Hydroxyurea 500 mg 01/27/17 10:00 01/27/17 12:33 Hydrea - PO 500 mg BID ANCA Administration Insulin Aspart 1 vial 01/27/17 07:00 01/27/17 08:48 Novolog Vial Sliding Scale - SQ 8 unit ACHS ANCA Administration Protocol Insulin Detemir 65 units 01/27/17 07:00 01/27/17 08:48 Levemir Vial SQ 65 unit DAILY@0700 ANCA Administration Lisinopril 20 mg 01/27/17 10:00 01/27/17 12:34 Prinivil PO 20 mg DAILY ANCA Administration Loratadine 10 mg 01/27/17 10:00 01/27/17 12:33 Claritin - PO 10 mg DAILY ANCA Administration Lorazepam 2 mg 01/27/17 06:00 01/27/17 06:55 Ativan - PO 2 mg TID ANCA Administration Magnesium Hydroxide 30 ml 01/26/17 23:59 Milk Of Magnesia - PO DAILY PRN CONSTIPATION Magnesium Oxide 400 mg 01/27/17 10:00 01/27/17 12:34 Mag-Ox - PO 400 mg DAILY ANCA Administration Melatonin 3 mg 01/27/17 22:00 Melatonin PO HS ANCA Olanzapine 5 mg 01/27/17 10:00 01/27/17 12:34 Zyprexa - PO 5 mg DAILY ANCA Administration Oxycodone HCl 5 mg 01/27/17 00:33 01/27/17 06:55 Roxicodone - PO 5 mg Q12H PRN Administration PAIN Paroxetine HCl 50 mg 01/27/17 10:00 01/27/17 12:34 Paxil - PO 50 mg DAILY ANCA Administration Pneumococcal Polyvalent Vaccine 0.5 ml 01/27/17 12:30 Pneumovax - IM 01/27/17 12:31 .ONCE ONE polycythemia vera symptoms of hyper viscosity, now resolved pAfib on eliquis will phlebotomize one unit today cw hydrea and aspirin gentle hydration daily CBC testicular US as an OP cards eval noted phlebotomy appt : 02/02 2:00pm. ( CBC from the day needs to be accompanied by pt) [facility] ([facility]) [address] [place] [address] will arrange for weekly phlebotomy until the hCt is less than 45. Our Office appointment: 02/10 1000am. can come to first floor [facility]' office d/w Problem List - Problems (1) Polycythemia vera Code(s): D45 - POLYCYTHEMIA VERA (2) Atypical chest pain Code(s): R07.89 - OTHER CHEST PAIN (3) HTN (hypertension) Code(s): I10 - ESSENTIAL (PRIMARY) HYPERTENSION Qualifiers: Hypertension type: essential hypertension Qualified Code(s): I10 - Essential (primary) hypertension
[2017-01-28] MEDS: LORazepam 1 MG TABLET PO SCH ×2 (14:12→22:13)
[2017-01-28] MEDS: GABAPENTIN 100 MG CAPSULE (FP) PO SCH ×2 (14:12→22:13)
[2017-01-28 17:10] LABS: MCH 29.4 pg (25.7-33.7); MCHC 33.2 g/dl (32.0-35.9); MEAN CELL VOLUME 88.5 fl (80-96); MEAN PLT VOLUME 7.9 fl (7.5-11.1); PLATELET COUNT 288 K/MM3 (134-434); RDW 17.6 % (11.9-15.9); WHITE BLOOD COUNT 6.1 K/mm3 (4.0-10.0)
--- NOTE | 2017-01-28 18:31 | PROC ---
Procedure Note Procedure: Therapeutic phlebotomy successful 500CC Tolerated well. No post sideeffects will c/w IVF
[2017-01-28] MEDS: MELATONIN 1 MG TABLET PO SCH (22:14)
[2017-01-29] MEDS: SODIUM CHLORIDE 1,000 ML IV SCH (01:51)
[2017-01-29] MEDS: GABAPENTIN 100 MG CAPSULE (FP) PO SCH ×2 (07:08→09:19)
[2017-01-29] MEDS: LORazepam 1 MG TABLET PO SCH ×2 (07:08→09:19)
[2017-01-29] MEDS: INSULIN DETEMIR 100 UNITS/ML MDV SQ SCH ×2 (07:09→09:19)
[2017-01-29] MEDS: INSULIN SLIDING SCALE (NOVOLOG) 1 VIAL SQ SCH ×2 (07:10→09:19)
[2017-01-29 07:11] LABS: MCH 28.5 pg (25.7-33.7); MCHC 31.8 g/dl (32.0-35.9); MEAN CELL VOLUME 89.6 fl (80-96); MEAN PLT VOLUME 7.5 fl (7.5-11.1); PLATELET COUNT 238 K/MM3 (134-434); RDW 17.8 % (11.9-15.9)
[2017-01-29] MEDS ORDERED: MAGNESIUM HYDROX 2400MG/30ML ORAL SUSPENSION 30 ML CUP PO PRN (07:46)
[2017-01-29] MEDS ORDERED: MAG HYDROX/AL HYDROX/SIMETH 30 ML UNIT-DOSE CUP PO PRN (07:46)
[2017-01-29] MEDS: oxyCODONE HCL 5 MG TABLET PO PRN (08:33)
[2017-01-29] MEDS ORDERED: ACETAMINOPHEN 325 MG TABLET (FP) ONE (08:37)
[2017-01-29] MEDS ORDERED: PARoxetine HCL 10 MG TABLET (FP) ONE (08:42)
[2017-01-29] MEDS: ASPIRIN COATED 81 MG TABLET.EC PO SCH (09:01)
[2017-01-29] MEDS: METOPROLOL TARTRATE 25 MG TABLET (FP) PO SCH (09:07)
[2017-01-29] MEDS ORDERED: PT OWN MED DRAWER 7, Y5N ONE (09:08)
[2017-01-29] MEDS: PARoxetine HCL 20 MG TABLET (FP) PO SCH (09:09)
[2017-01-29] MEDS ORDERED: LORATADINE 10 MG TABLET PO SCH (10:00)
[2017-01-29] MEDS ORDERED: MAGNESIUM OXIDE 400 MG TABLET (FP) PO SCH (10:00)
[2017-01-29] MEDS ORDERED: INSULIN GLARGINE HUM REC ANLOG 65 UNIT SQ SCH (10:00)
[2017-01-29] MEDS ORDERED: LISINOPRIL 20 MG TABLET (FP) PO SCH (10:00)
[2017-01-29] MEDS ORDERED: OLANZapine 5 MG TABLET PO SCH (10:00)
[2017-01-29] MEDS ORDERED: APIXABAN 5 MG TABLET PO SCH (10:00)
[2017-01-29] MEDS ORDERED: DRONEDARONE HCL 400 MG TAB (FP) PO SCH (10:00)
[2017-01-29] MEDS ORDERED: HYDROXYUREA 500 MG CAPSULE PO SCH (10:00)
--- NOTE | 2017-01-29 10:30 | PN ---
Progress Note, Physician Chief Complaint: Not in distress History of Present Illness: Patient was seen and examined. Awake and alert. Chart was reviewed Denies chest pain, SOB or palpitations - Current Medication List Current Medications: Active Medications Al Hydroxide/Mg Hydroxide (Mylanta Oral Suspension -) 30 ml PO Q6H PRN PRN Reason: DIARRHEA Albuterol/Ipratropium (Duoneb -) 1 amp NEB Q8H PRN PRN Reason: SHORT OF BREATH/WHEEZING Apixaban (Eliquis -) 5 mg PO BID [facility] Last Admin: 01/29/17 09:11 Dose: 5 mg Aspirin (Ecotrin -) 81 mg PO DAILY [facility] Last Admin: 01/29/17 09:01 Dose: 81 mg Dronedarone (Multaq -) 400 mg PO BID [facility] Last Admin: 01/29/17 09:14 Dose: 400 mg Gabapentin (Neurontin -) 100 mg PO TID [facility] Hydroxyurea (Hydrea -) 500 mg PO BID [facility] Last Admin: 01/29/17 09:01 Dose: 500 mg Sodium Chloride (Normal Saline -) 1,000 mls @ 75 mls/hr IV ASDIR [facility] Last Admin: 01/29/17 01:51 Dose: 75 mls/hr Insulin Aspart (Novolog Vial Sliding Scale -) 1 vial SQ ACHS [facility] PRN Reason: Protocol Insulin Detemir (Levemir Vial) 65 units SQ DAILY@0700 [facility] Lisinopril (Prinivil) 20 mg PO DAILY [facility] Last Admin: 01/29/17 09:02 Dose: 20 mg Loratadine (Claritin -) 10 mg PO DAILY [facility] Last Admin: 01/29/17 09:01 Dose: 10 mg Lorazepam (Ativan -) 2 mg PO TID [facility] Magnesium Hydroxide (Milk Of Magnesia -) 30 ml PO DAILY PRN PRN Reason: CONSTIPATION Magnesium Oxide (Mag-Ox -) 400 mg PO DAILY [facility] Last Admin: 01/29/17 09:02 Dose: 400 mg Melatonin (Melatonin) 3 mg PO HS [facility] Metoprolol Tartrate (Lopressor -) 25 mg PO BID [facility] Last Admin: 01/29/17 09:07 Dose: 25 mg Olanzapine (Zyprexa -) 5 mg PO DAILY [facility] Last Admin: 01/29/17 09:15 Dose: 5 mg Oxycodone HCl (Roxicodone -) 5 mg PO Q12H PRN PRN Reason: PAIN Last Admin: 01/29/17 08:33 Dose: 5 mg Paroxetine HCl (Paxil -) 50 mg PO DAILY [facility] Last Admin: 01/29/17 09:09 Dose: 50 mg - Objective Vital Signs: Vital Signs Temperature 98.1 F 01/29/17 08:47 Pulse Rate 84 01/29/17 08:47 Respiratory Rate 18 01/29/17 08:47 Blood Pressure 147/87 01/29/17 08:47 O2 Sat by Pulse Oximetry (%) 96 01/28/17 22:20 Neck: Yes: Supple Cardiovascular: Yes: Regular Rate and Rhythm, S1, S2 Respiratory: Yes: CTA Bilaterally Gastrointestinal: Yes: Normal Bowel Sounds, Soft. No: Tenderness Edema: No Labs: CBC, BMP 01/29/17 06:00 Problem List - Problems (1) Polycythemia vera Code(s): D45 - POLYCYTHEMIA VERA (2) IDDM (insulin dependent diabetes mellitus) Code(s): E11.9 - TYPE 2 DIABETES MELLITUS WITHOUT COMPLICATIONS; Z79.4 - [employer]PERATIONS SPECIALIST (CURRENT) USE OF INSULIN (3) HLD (hyperlipidemia) Code(s): E78.5 - HYPERLIPIDEMIA, UNSPECIFIED Qualifiers: Hyperlipidemia type: pure hypercholesterolemia Qualified Code(s): E78.00 - Pure hypercholesterolemia, unspecified (4) Atypical chest pain Code(s): R07.89 - OTHER CHEST PAIN (5) HTN (hypertension) Code(s): I10 - ESSENTIAL (PRIMARY) HYPERTENSION Qualifiers: Hypertension type: essential hypertension Qualified Code(s): I10 - Essential (primary) hypertension (6) Atrial fibrillation Code(s): I48.91 - UNSPECIFIED ATRIAL FIBRILLATION Qualifiers: Atrial fibrillation type: paroxysmal Qualified Code(s): I48.0 - Paroxysmal atrial fibrillation Assessment/Plan 1. Chest pain syndrome, atypical, possibly related to PV 2. History of polycytemia vera 3. Hypertension 4. Hypercholesterolemia 5. History of PAF - no on any anticoagulation 6. Hypertension 7. Hypercholesterolemia 8. IDDM 9. Kleinfelter's disease PLAN: 1. Continue Eliquis 5 mg BID 2. Continue Multaq 400 mg BID 3. Continue Hyroxyurea 4. Continue Prinivil and Metoprolol as tolerated 5. Continue phlebotomy as outpatient. Offered to follow up in in the office for cardiac management Further plans are to follow Selwyn Palacio MD
[2017-01-29 10:36] VITALS: BP 151/88; PULSE 77; TEMP 97.6
[2017-01-29] MEDS ORDERED: INSULIN SLIDING SCALE (NOVOLOG) 1 VIAL SQ SCH (11:00)
--- NOTE | 2017-01-29 11:55 | DS ---
Physical Examination Vital Signs: Vital Signs Temperature 97.6 F 01/29/17 10:35 Pulse Rate 77 01/29/17 10:35 Respiratory Rate 18 01/29/17 10:35 Blood Pressure 151/88 01/29/17 10:35 O2 Sat by Pulse Oximetry (%) 96 01/28/17 22:20 Constitutional: Yes: No Distress, Calm Cardiovascular: Yes: Pulse Irregular Respiratory: Yes: CTA Bilaterally Gastrointestinal: Yes: Normal Bowel Sounds, Soft. No: Distention, Tenderness Edema: No Labs: CBC, BMP 01/29/17 06:00 01/27/17 06:02 Discharge Summary Reason For Visit: CHEST PAIN,POLYCYTHEMIA VERA Current Active Problems Atrial fibrillation (Acute) Atypical chest pain (Acute) Chest pain (Acute) Diabetic neuropathy (Acute) HLD (hyperlipidemia) (Acute) HTN (hypertension) (Acute) Hyperviscosity (Acute) IDDM (insulin dependent diabetes mellitus) (Acute) Klinefelter syndrome (Acute) Polycythemia vera (Acute) Hospital Course: Admitted for chest pain Cardiac enzymes negative pt was initially admitted to telemetry Seen by Cardiology -- Echo--impaired LV relaxation Seen by Hematology for polycythemia vera chest pain likely due to PV He had phlebotomization done twice this admission-- he will need follow up with [facility] as outpt Also appointment arranged for outpt phlebotomy at [facility] as [facility] does not do regular phlebotomies for PV patients. phlebotomy appt : 02/02 2:00pm. ( CBC from the day needs to be accompanied by pt) [facility] ([facility]) [address] [id number] will arrange for weekly phlebotomy until the hCt is less than 45. Dr Ritter Office appointment: 02/10 10:00am. can come to first floor [facility]'s office Pt needs CBC drawn as STAT tomorrow 01/30 -- we need results before he goes for his appointment on Thursday Condition: Improved - Instructions Diet, Activity, Other Instructions: phlebotomy appt : 02/02 2:00pm. ( CBC from the day needs to be accompanied by pt) [facility] ([facility]) [address] [place] [id number] will arrange for weekly phlebotomy until the hCt is less than 45. Dr Ritter Office appointment: 02/10 10:00am. can come to first floor [facility] office Referrals: Sophia David MD [Staff Physician] - 1 Week (follow up in office on 02/03) Franki Pena MD [Primary Care Provider] - Disposition: LONG-TERM FACILITY - Home Medications Comprehensive Discharge Medication List: Ambulatory Orders Albuterol 0.083% Nebulizer Anabel [Ventolin 0.083% Nebulizer Soln -] 1 neb NEB QID PRN 01/26/17 Apixaban [Eliquis] 5 mg PO BID 01/26/17 Dronedarone HCl [Multaq] 400 mg PO BID 01/26/17 Fluticasone Prop 0.05% Nasal [Flonase -] 2 sprays NS DAILY 01/26/17 Gabapentin 100 mg PO TID 01/26/17 Insulin Glargine,Hum.rec.anlog [Lantus Solostar PEN (NF)] 65 units SQ DAILY 09/06 Lisinopril [Prinivil] 20 mg PO DAILY 01/26/17 Loratadine [Claritin] 10 mg PO DAILY 01/26/17 Lorazepam 2 mg PO TID 01/26/17 Mag Hydrox/Al Hydrox/Simeth [Mylanta Oral Suspension -] 20 ml PO Q6H PRN Magnesium Hydroxide [Milk of Magnesia] 30 ml PO DAILY PRN 01/26/17 Melatonin 3 mg PO HS 01/26/17 Mupirocin Cream [Bactroban 2% Cream -] 1 applic TP BID 01/26/17 Nystatin Cream [Mycostatin Cream -] 1 applic TP BID 01/26/17 Olanzapine 5 mg PO DAILY 01/26/17 Oxycodone HCl/Acetaminophen [Percocet 5-325 mg Tablet] 1 tab PO Q8H PRN Paroxetine HCl 50 mg PO DAILY 01/26/17 Phenyleph/Pramoxin/Glycr/W.pet [Preparation H Cream] 26 gm RC BID PRN 01/26/17 Aspirin [ASA -] 81 mg PO DAILY 01/27/17 Duloxetine HCl [Cymbalta] 20 mg PO DAILY 01/27/17 Ergocalciferol (Vitamin D2) [Vitamin D2] 50,000 unit PO FR 01/27/17 Insulin Lispro [Humalog] 0 unit SQ TID PRN 01/27/17 Albuterol 2.5/Ipratropium 0.5 [Duoneb -] 1 amp NEB Q8H PRN amp 01/28/17 Hydroxyurea [Hydrea 500Mg Capsule -] 500 mg PO BID #60 capsule 01/28/17
[2017-01-29] MEDS ORDERED: LORazepam 1 MG TABLET PO SCH (14:00)
[2017-01-29] MEDS ORDERED: GABAPENTIN 100 MG CAPSULE (FP) PO SCH (14:00)
[2017-01-29] MEDS ORDERED: PATIENT'S OWN MEDICATION (NON-FORMULARY) (Lorazepam [Lorazepam] 2 MG) PO SCH (14:00)
[2017-01-29] MEDS ORDERED: MELATONIN 1 MG TABLET PO SCH (22:00)
[2017-01-30] MEDS ORDERED: INSULIN DETEMIR 100 UNITS/ML MDV SQ SCH (07:00)
== END 2017-01-29 12:21 | DRG 841 ==
LOC: JER 16:29 → JERBED 22:15 → J4W 01-27 18:45 → J7W 01-28 13:52
PROVIDERS: ADMIT Internal Medicine; ATTEND Internal Medicine
PROC: 059Y3ZZ Drainage of Upper Vein, Percutaneous Approach (ICD-10-PCS; principal; 2017-01-26)
PROC: 0X9J0ZZ Drainage of Right Hand, Open Approach (ICD-10-PCS; 2017-01-26)
DX: D45 Polycythemia vera (principal); F20.89 Other schizophrenia; E87.1 Hypo-osmolality and hyponatremia; Q98.4 Klinefelter syndrome, unspecified; E78.5 Hyperlipidemia, unspecified; F41.8 Other specified anxiety disorders; R07.89 Other chest pain; I11.0 Hypertensive heart disease with heart failure; N62 Hypertrophy of breast; E55.9 Vitamin D deficiency, unspecified; M54.89 Other dorsalgia; K59.09 Other constipation; M54.30 Sciatica, unspecified side; I48.0 Paroxysmal atrial fibrillation; D75.9 Disease of blood and blood-forming organs, unspecified; L03.011 Cellulitis of right finger; D50.0 Iron deficiency anemia secondary to blood loss (chronic); E11.42 Type 2 diabetes mellitus with diabetic polyneuropathy; Z79.4 Long term (current) use of insulin
CPT/HCPCS: 36415; 71010-TC; 71101-TC; 80053; 82550; 82668; 83615; 83735; 83880; 84100; 84484; 84550; 85025; 85027; 85610; 85730; 90732; 93005; 93010; 93306-TC; 97116-GP; 97161-GP; 99285-25; G0009; J8999

== ENCOUNTER 2017-02-10 12:57 | Emergency (ER) | payer OTHER ==
[2017-02-10 13:06] VITALS: BP 118/74; PULSE 79; TEMP 98.1; BMI 33.2
--- NOTE | 2017-02-10 14:14 | PDOC ---
History of Present Illness - General Chief Complaint: Blood Sugar Problem Stated Complaint: LAB VARIANCE (PCP SENT) Time Seen by Provider: 02/10/17 14:11 - History of Present Illness Initial Comments: 02/10/17 16:31 The patient is a 56 year old male, [facility] resident, with a significant past medical history of Klinefelter's syndrome, DM, Atrial fibrillation (on Eliquis) , CHF, HTN, HLD, schizophrenia, anxiety, and Polycythemia vera, sent to the emergency department from the office of Dr. Johnson and Dr. Ritter for evaluation of blood glucose of 529 today. The patient reports a gnawing pain to both legs. He states he experienced this pain before, however, states his pain is more today and usually managed with percocets. As per Dr. Johnson, the pt does not have an anion gap and needs some insulin and fluids prior to going back to the [facility] - this is why he was sent to the ED. He denies chest pain, shortness of breath, headache. He denies fever, chills, nausea, vomit, diarrhea and constipation. He denies dysuria, frequency, urgency and hematuria. Past surgical history: none reported Social history: Pt denies toxic habits PCP - Dr. Franki Pena Hematology - Dr. Ritter Past History - Past Medical History Allergies/Adverse Reactions: Allergies Allergy/AdvReac Type Severity Reaction Status Date / Time cephalexin Allergy Verified 02/10/17 14:09 chicken derived Allergy Verified 02/10/17 14:09 cinnamon Allergy Verified 02/10/17 14:09 codeine Allergy Verified 02/10/17 14:09 egg Allergy Verified 02/10/17 14:09 hydrochlorothiazide Allergy Verified 02/10/17 14:09 levothyroxine Allergy Verified 02/10/17 14:09 onion Allergy Verified 02/10/17 14:09 Home Medications: Ambulatory Orders Albuterol 0.083% Nebulizer Anabel [Ventolin 0.083% Nebulizer Soln -] 1 neb NEB QID PRN 01/26/17 Apixaban [Eliquis] 5 mg PO BID 01/26/17 Dronedarone HCl [Multaq] 400 mg PO BID 01/26/17 Fluticasone Prop 0.05% Nasal [Flonase -] 2 sprays NS DAILY 01/26/17 Gabapentin 100 mg PO TID 01/26/17 Insulin Glargine,Hum.rec.anlog [Lantus Solostar PEN (NF)] 65 units SQ DAILY 09/06 Lisinopril [Prinivil] 20 mg PO DAILY 01/26/17 Loratadine [Claritin] 10 mg PO DAILY 01/26/17 Lorazepam 2 mg PO TID 01/26/17 Mag Hydrox/Al Hydrox/Simeth [Mylanta Oral Suspension -] 20 ml PO Q6H PRN Magnesium Hydroxide [Milk of Magnesia] 30 ml PO DAILY PRN 01/26/17 Melatonin 3 mg PO HS 01/26/17 Mupirocin Cream [Bactroban 2% Cream -] 1 applic TP BID 01/26/17 Nystatin Cream [Mycostatin Cream -] 1 applic TP BID 01/26/17 Olanzapine 5 mg PO DAILY 01/26/17 Oxycodone HCl/Acetaminophen [Percocet 5-325 mg Tablet] 1 tab PO Q8H PRN Paroxetine HCl 50 mg PO DAILY 01/26/17 Phenyleph/Pramoxin/Glycr/W.pet [Preparation H Cream] 26 gm RC BID PRN 01/26/17 Aspirin [ASA -] 81 mg PO DAILY 01/27/17 Duloxetine HCl [Cymbalta] 20 mg PO DAILY 01/27/17 Ergocalciferol (Vitamin D2) [Vitamin D2] 50,000 unit PO FR 01/27/17 Insulin Lispro [Humalog] 0 unit SQ TID PRN 01/27/17 Albuterol 2.5/Ipratropium 0.5 [Duoneb -] 1 amp NEB Q8H PRN amp 01/28/17 Hydroxyurea [Hydrea 500Mg Capsule -] 500 mg PO BID #60 capsule 01/28/17 Benzocaine/Menthol [Cepacol Sore Throat Lozenge] 1 each MM DAILY 02/10/17 Furosemide [Lasix] 20 mg PO DAILY 02/10/17 Ibuprofen [Motrin -] 400 mg PO DAILY 02/10/17 Magnesium Oxide [Mag-Ox -] 400 mg PO DAILY 02/10/17 Metoprolol Tartrate 25 mg PO DAILY 02/10/17 Na Phos,M-B/Na Phos,Di-Ba [Fleet Enema] 133 ml RC DAILY 02/10/17 Pramoxine HCl/Calamine [Caladryl 1%-8% Lotion] 177 ml TP DAILY 02/10/17 Anemia: Yes (vitamin D deficiency) Cardiac Disorders: Yes (afib) COPD: No Diabetes: Yes (niddm) HTN: Yes Hypercholesterolemia: Yes Psychiatric Problems: Yes (schizophrenia, anxiety) Other medical history: polycythemia vera, gillette filter syndrome - Suicide/Smoking/Psychosocial Hx Smoking History: Never smoked Have you smoked in the past 12 months: No Information on smoking cessation initiated: No Hx Alcohol Use: No Drug/Substance Use Hx: No Review of Systems - Review of Systems Comments:: 02/10/17 16:32 "GENERAL/CONSTITUTIONAL: No fever or chills. No weakness. HEAD, EYES, EARS, NOSE AND THROAT: No change in vision. No ear pain or discharge. No sore throat. GASTROINTESTINAL: No nausea, vomiting, diarrhea or constipation. GENITOURINARY: No dysuria, frequency, or change in urination. CARDIOVASCULAR: No chest pain or shortness of breath. RESPIRATORY: No cough, wheezing, or hemoptysis. MUSCULOSKELETAL: (+) bilateral LE pain. No joint or muscle swelling or pain. No neck or back pain. SKIN: No rash NEUROLOGIC: No headache, vertigo, loss of consciousness, or change in strength/ sensation. ENDOCRINE: No increased thirst. No abnormal weight change. HEMATOLOGIC/LYMPHATIC: No anemia, easy bleeding, or history of blood clots. ALLERGIC/IMMUNOLOGIC: No hives or skin allergy. *Physical Exam - Vital Signs Last Vital Signs Temp Pulse Resp BP Pulse Ox 98.1 F 79 18 118/74 100 02/10/17 13:01 02/10/17 13:01 02/10/17 13:01 02/10/17 13:01 02/10/17 13:01 - Physical Exam Comments: 02/10/17 16:32 GENERAL: Awake, alert, and fully oriented, in no acute distress HEAD: No signs of trauma EYES: PERRLA, EOMI, sclera anicteric, conjunctiva clear ENT: Auricles normal inspection, hearing grossly normal, nares patent, oropharynx clear without exudates. Moist mucosa NECK: Normal ROM, supple, no lymphadenopathy, JVD, or masses LUNGS: Breath sounds equal, clear to auscultation bilaterally. No wheezes, and no crackles HEART: Regular rate and rhythm, normal S1 and S2, no murmurs, rubs or gallops ABDOMEN: Soft, nontender, normoactive bowel sounds. No guarding, no rebound. No masses EXTREMITIES: Normal range of motion, no edema. No clubbing or cyanosis. No cords, or tenderness BACK: No midline spinal tenderness in cervical/thoracic/lumbar region NEUROLOGICAL: Normal speech, cranial nerves intact, negative pronator drift, 5/ 5 strength in all 4 extremities, normal sensation to light touch in all 4 extremities, normal cerebellar exam, normal gait, normal reflexes and tone SKIN: Warm, Dry, normal turgor, no rashes or lesions noted.
[2017-02-10] MEDS ORDERED: INSULIN REGULAR HUMAN 100 UNITS/ML *VIAL SQ ONE ×2 (15:18→15:59)
[2017-02-10] MEDS ORDERED: INSULIN REGULAR HUMAN 100 UNITS/ML *VIAL ONE ×2 (15:24→16:02)
== END 2017-02-10 17:25 ==
LOC: JER 12:57
PROC: 3E013VG Introduction of Insulin into Subcutaneous Tissue, Percutaneous Approach (ICD-10-PCS; principal; 2017-02-10)
PROC: 3E013VG Introduction of Insulin into Subcutaneous Tissue, Percutaneous Approach (ICD-10-PCS; 2017-02-10)
DX: E10.65 Type 1 diabetes mellitus with hyperglycemia (principal); Z79.4 Long term (current) use of insulin; I10 Essential (primary) hypertension; I50.9 Heart failure, unspecified; I48.91 Unspecified atrial fibrillation; Z79.01 Long term (current) use of anticoagulants; E78.00 Pure hypercholesterolemia, unspecified; F25.9 Schizoaffective disorder, unspecified; F41.9 Anxiety disorder, unspecified; D45 Polycythemia vera
CPT/HCPCS: 36415; 80048; 80076; 82668; 85027; 99282-25

== ENCOUNTER 2017-07-29 11:14 | Emergency (ER) | payer OTHER ==
[2017-07-29 11:25] VITALS: BP 98/68; PULSE 83; BMI 33.0
[2017-07-29 11:26] VITALS: TEMP 98.1
[2017-07-29 12:42] LABS: HEMATOCRIT 51.4 % (35.4-49); HEMOGLOBIN 17.1 GM/dL (11.7-16.9); MCH 32.3 pg (25.7-33.7); MCHC 33.3 g/dl (32.0-35.9); PLATELET COUNT 160 K/MM3 (134-434); RBC 5.31 M/mm3 (4.00-5.60); RDW 20.7 % (11.9-15.9); WHITE BLOOD COUNT 4.3 K/mm3 (4.0-10.0)
[2017-07-29] MEDS ORDERED: SODIUM CHLORIDE 1,000 ML IV STA ×2 (13:02→13:32)
--- NOTE | 2017-07-29 13:07 | PDOC ---
History of Present Illness - General History Source: Patient Exam Limitations: No Limitations - History of Present Illness Initial Comments: 07/29/17 14:35 The patient is a 56 year old long-term resident with significant history polycythemia vera (gets monthly phlebotomy approx ~500cc), hypertension, hyperlipidemia, diabetes, Klinefelter's sydrome who presents to the ED after a fainting episode this morning. The patient states he was getting out of bed when he felt lightheaded and lost consciousness. He fell to the ground, hitting , the back of his head, and came to when he hit his head. The patient states this lightheadedness has happened to him multiple times in the past post phlebotomy and resolves with 4-5 L of IV fluids in the 2 days following phlebotomy. His lightheadedness is much worse when he stands. He states they nurses always give him fluids but they were unable to obtain a peripheral IV and thus he did not get any.The patient denies headache, visual changes, numbness or tingling. He denies chest pain or shortness of breath. He denies nausea, vomiting, or diaphoresis. He denies any other injury. Patient is noted to be hypotensive on triage. <Meaghan Dior - Last Filed: 07/29/17 14:35> <Shweta Harrington - Last Filed: 07/29/17 17:22> - General Chief Complaint: Syncope/Near Syncope Stated Complaint: FALL Time Seen by Provider: 07/29/17 12:04 Past History <Meaghan Dior - Last Filed: 07/29/17 14:35> - Past Medical History Anemia: Yes (vitamin D deficiency, polycythemia) Cardiac Disorders: Yes (afib) COPD: No Diabetes: Yes (niddm) HTN: Yes Hypercholesterolemia: Yes Psychiatric Problems: Yes (schizophrenia, anxiety) - Suicide/Smoking/Psychosocial Hx Smoking History: Never smoked Have you smoked in the past 12 months: No Hx Alcohol Use: No Drug/Substance Use Hx: No <Shweta Harrington - Last Filed: 07/29/17 17:22> - Past Medical History Allergies/Adverse Reactions: Allergies Allergy/AdvReac Type Severity Reaction Status Date / Time cephalexin Allergy Verified 07/29/17 11:37 chicken derived Allergy Verified 07/29/17 11:37 cinnamon Allergy Verified 07/29/17 11:37 codeine Allergy Verified 07/29/17 11:37 egg Allergy Verified 07/29/17 11:37 hydrochlorothiazide Allergy Verified 07/29/17 11:37 levothyroxine Allergy Verified 07/29/17 11:37 onion Allergy Verified 07/29/17 11:37 Home Medications: Ambulatory Orders Albuterol 0.083% Nebulizer Anabel [Ventolin 0.083% Nebulizer Soln -] 1 neb NEB QID PRN 01/26/17 Apixaban [Eliquis] 5 mg PO BID 01/26/17 Dronedarone HCl [Multaq] 400 mg PO BID 01/26/17 Fluticasone Prop 0.05% Nasal [Flonase -] 2 sprays NS DAILY 01/26/17 Gabapentin 400 mg PO TID 01/26/17 Insulin Glargine,Hum.rec.anlog [Lantus Solostar PEN (NF)] 65 units SQ DAILY 09/06 Lisinopril [Prinivil] 20 mg PO DAILY 01/26/17 Loratadine [Claritin] 10 mg PO DAILY 01/26/17 Lorazepam 2 mg PO TID 01/26/17 Melatonin 3 mg PO HS 01/26/17 Olanzapine 5 mg PO DAILY 01/26/17 Paroxetine HCl 50 mg PO DAILY 01/26/17 Aspirin [ASA -] 81 mg PO DAILY 01/27/17 Duloxetine HCl [Cymbalta] 20 mg PO DAILY 01/27/17 Ergocalciferol (Vitamin D2) [Vitamin D2] 50,000 unit PO FR 01/27/17 Insulin Lispro [Humalog] 0 unit SQ TID PRN 01/27/17 Albuterol 2.5/Ipratropium 0.5 [Duoneb -] 1 amp NEB Q8H PRN amp 01/28/17 Hydroxyurea [Hydrea 500Mg Capsule -] 500 mg PO BID #60 capsule 01/28/17 Benzocaine/Menthol [Cepacol Sore Throat Lozenge] 1 each MM DAILY 02/10/17 Furosemide [Lasix] 20 mg PO DAILY 02/10/17 Ibuprofen [Motrin -] 400 mg PO DAILY 02/10/17 Magnesium Oxide [Mag-Ox -] 400 mg PO DAILY 02/10/17 Metoprolol Tartrate 25 mg PO DAILY 02/10/17 Fluoxetine HCl [Prozac] 10 mg PO DAILY 07/29/17 Metformin HCl 850 mg PO BID 07/29/17 Nitroglycerin 0.4 mg SL ASDIR PRN 07/29/17 Oxycodone HCl/Acetaminophen [Percocet 5-325 mg Tablet] 1 - 2 tab PO TID PRN 12/08 Tizanidine HCl 2 mg PO TID 07/29/17 Review of Systems - Review of Systems Able to Perform ROS?: Yes Comments:: 07/29/17 14:35 GENERAL/CONSTITUTIONAL: No fever or chills. No weakness. HEAD, EYES, EARS, NOSE AND THROAT: No change in vision. No ear pain or discharge. No sore throat. GASTROINTESTINAL: No nausea, vomiting, diarrhea or constipation. GENITOURINARY: No dysuria, frequency, or change in urination. CARDIOVASCULAR: +Lightheadedness, LOC. No chest pain or shortness of breath. RESPIRATORY: No cough, wheezing, or hemoptysis. MUSCULOSKELETAL: No joint or muscle swelling or pain. No neck or back pain. SKIN: No rash NEUROLOGIC: No headache, vertigo, loss of consciousness, or change in strength/ sensation. ENDOCRINE: No increased thirst. No abnormal weight change. HEMATOLOGIC/LYMPHATIC: No anemia, easy bleeding, or history of blood clots. ALLERGIC/IMMUNOLOGIC: No hives or skin allergy. <Meaghan Dior - Last Filed: 07/29/17 14:35> *Physical Exam - Vital Signs Last Vital Signs Temp Pulse Resp BP Pulse Ox 98.1 F 83 18 98/68 96 07/29/17 11:23 07/29/17 11:23 07/29/17 11:23 07/29/17 11:23 07/29/17 11:23 - Physical Exam Comments: 07/29/17 14:36 GENERAL: Awake, alert, and fully oriented, in no acute distress HEAD: No signs of trauma EYES: PERRLA, EOMI, sclera anicteric, conjunctiva clear ENT: Auricles normal inspection, hearing grossly normal, nares patent, oropharynx clear without exudates. dry MM NECK: Normal ROM, supple, no lymphadenopathy, JVD, or masses LUNGS: Breath sounds equal, clear to auscultation bilaterally. No wheezes, and no crackles HEART: Regular rate and rhythm, normal S1 and S2, no murmurs, rubs or gallops ABDOMEN: Soft, nontender, normoactive bowel sounds. No guarding, no rebound. No masses EXTREMITIES: Normal range of motion, no edema. No clubbing or cyanosis. No cords, erythema, or tenderness BACK: No midline spinal tenderness in cervical/thoracic/lumbar region NEUROLOGICAL: Normal speech, cranial nerves intact, negative pronator drift, 5/ 5 strength in all 4 extremities, normal sensation to light touch in all 4 extremities, normal cerebellar exam, normal gait, normal reflexes and tone SKIN: Warm, Dry, normal turgor, no rashes or lesions noted. Orthostatic VS: Lying: HR 87 BP 125/87 Sitting: HR 91 BP 112/80 Standing: HR 96 BP 88/69 <Meaghan Dior - Last Filed: 07/29/17 14:35> - Vital Signs Last Vital Signs Temp Pulse Resp BP Pulse Ox 98.1 F 83 18 98/68 96 07/29/17 11:23 07/29/17 11:23 07/29/17 11:23 07/29/17 11:23 07/29/17 11:23 <Shweta Harrington - Last Filed: 07/29/17 17:22> Heart Score/ECG Review #1 07/29/17 13:05 Twelve-lead EKG was performed and reviewed by me. Normal sinus rhythm, rate 84. Normal axis. No ST elevations. T wave inversions in leads 1, aVL, V4-V6. When compared to EKG from January 2017, no significant change. <Shweta Harrington - Last Filed: 07/29/17 17:22> ED Treatment Course - LABORATORY CBC & Chemistry Diagram: 07/29/17 12:30 07/29/17 12:30 - ADDITIONAL ORDERS Additional order review: Laboratory Results 07/29/17 12:30 Sodium Cancelled Potassium Cancelled Chloride Cancelled Carbon Dioxide Cancelled Anion Gap Cancelled BUN Cancelled Creatinine Cancelled Creat Clearance w eGFR Cancelled Random Glucose Cancelled Calcium Cancelled Total Bilirubin Cancelled AST Cancelled ALT Cancelled Alkaline Phosphatase Cancelled Troponin I Cancelled Total Protein Cancelled Albumin Cancelled 07/29/17 12:30 RBC 5.31 MCV 97.0 H MCHC 33.3 RDW 20.7 H D MPV 8.0 Neutrophils % No Result Required. Lymphocytes % No Result Required. - Medications Given in the ED: ED Medications Discontinued Medications Generic Name Dose Route Start Last Admin Trade Name Mohamud PRN Reason Stop Dose Admin Sodium Chloride 1,000 mls @ 1,000 mls/hr 07/29/17 13:02 07/29/17 13:09 Normal Saline - IV 07/29/17 14:01 1,000 mls/hr ASDIR STA Administration Sodium Chloride 1,000 mls @ 1,000 mls/hr 07/29/17 13:32 07/29/17 13:59 Normal Saline - IV 07/29/17 14:31 1,000 mls/hr ASDIR STA Administration Lactated Ringer's 1,000 ml 07/29/17 13:32 07/29/17 13:58 Lactated Ringers Solution IV 07/29/17 13:33 1,000 ml ONCE ONE Administration <Meaghan Dior - Last Filed: 07/29/17 14:35> - LABORATORY CBC & Chemistry Diagram: 07/29/17 12:30 07/29/17 12:30 - ADDITIONAL ORDERS Additional order review: 07/29/17 12:30 RBC 5.31 MCV 97.0 H MCHC 33.3 RDW 20.7 H D MPV 8.0 Neutrophils % No Result Required. Lymphocytes % No Result Required. - RADIOLOGY Radiology Studies Ordered: Category Date Time Status HEAD CT WITHOUT CONTRAST [CT] Stat CT Scan 07/29/17 13:02 Ordered CHEST X-RAY PORTABLE* [RAD] Stat Radiology 07/29/17 12:25 Ordered <Shweta Harrington - Last Filed: 07/29/17 17:22> Medical Decision Making - Medical Decision Making 07/29/17 14:46 56-year-old male with multiple medical problems including polycythemia vera presents the emergency department with lightheadedness and syncope. Vitals remarkable for hypotension to the 90s over 60s. Orthostatic vital signs are positive. Symptoms likely secondary to dehydration as patient typically receives 4-5 L of fluids after he has phlebotomy done. Will give the patient 3 L of fluids and recheck orthostatic vital signs. 07/29/17 17:19 Orthostatic vitals normal after 3L NS. Pt reports significant improvent in sxs, denies dizziness when ambulating in the ED. Requests discharge home. I discussed the physical exam findings, ancillary test results and final diagnoses with the patient. I answered all of the patient's questions. The patient was satisfied with the care received and felt comfortable with the discharge plan and treatment plan. The patient will call their primary care physician within 24 hours to arrange follow-up and will return to the Emergency Department with any new, persistent or worsening symptoms. <Shweta Harrington - Last Filed: 07/29/17 17:22> *DC/Admit/Observation/Transfer - Attestations Scribe Attestion: 07/29/17 14:36 Documentation prepared by Meaghan Dior, acting as medical transcription supervisor for Shweta Harrington MD. <Meaghan Dior - Last Filed: 07/29/17 14:35> - Discharge Dispostion Decision to Admit order: No - Attestations Physician Attestion: 07/29/17 17:21 I, Dr. Shweta Harrington MD, attest that this document has been prepared under my direction and personally reviewed by me in its entirety. I further attest, that it accurately reflects all work, treatment, procedures and medical decision -making performed by me. <Shweta Harrington - Last Filed: 07/29/17 17:22> Diagnosis at time of Disposition: Orthostatic hypotension, Dehydration - Discharge Dispostion Disposition: HOME Condition at time of disposition: Stable - Referrals Referrals: ON STAFF,NOT [Primary Care Provider] - - Patient Instructions Printed Discharge Instructions: DI for Syncope in Adults (Fainting) Additional Instructions: Drink plenty of fluids and stay hydrated. Follow-up with your primary doctor within 1-2 days. Return to the emergency department if you have any new, worsening or concerning symptoms. - Post Discharge Activity
[2017-07-29] MEDS ORDERED: LACTATED RINGERS SOLUTION 1000 ML INFUS.BAG IV ONE (13:32)
[2017-07-29 13:45] LABS: ANISOCYTOSIS 2+; MACROCYTOSIS 1+; PLATELET ESTIMATE NORMAL; TARGET CELLS 1+
--- NOTE | 2017-07-29 14:29 | EKG ---
Test Reason : Blood Pressure : / mmHG Vent. Rate : 084 BPM Atrial Rate : 084 BPM P-R Int : 146 ms QRS Dur : 080 ms QT Int : 400 ms P-R-T Axes : 050 048 105 degrees QTc Int : 472 ms NORMAL SINUS RHYTHM POSSIBLE LEFT ATRIAL ENLARGEMENT LEFT VENTRICULAR HYPERTROPHY T WAVE ABNORMALITY, CONSIDER LATERAL ISCHEMIA PROLONGED QT ABNORMAL ECG WHEN COMPARED WITH ECG OF 26-JAN-2017 16:41, INVERTED T WAVES HAVE REPLACED NONSPECIFIC T WAVE ABNORMALITY IN LATERAL LEADS Confirmed by KIERA CHAVIRA MD ([id number]) on 07/29/2017 2:29:20 PM Referred By: Confirmed By:KIERA CHAVIRA MD
== END 2017-07-29 18:35 | disposition home or self-care (01) ==
LOC: JER 11:14
PROC: 3E0337Z Introduction of Electrolytic and Water Balance Substance into Peripheral Vein, Percutaneous Approach (ICD-10-PCS; principal; 2017-07-29)
DX: I95.1 Orthostatic hypotension (principal); S09.8XXA Other specified injuries of head, initial encounter; W06.XXXA Fall from bed, initial encounter; Y93.89 Activity, other specified; Y92.122 Bedroom in nursing home as the place of occurrence of the external cause; I10 Essential (primary) hypertension; D45 Polycythemia vera; E11.9 Type 2 diabetes mellitus without complications; Z79.4 Long term (current) use of insulin; Z79.84 Long term (current) use of oral hypoglycemic drugs; F20.9 Schizophrenia, unspecified; F41.9 Anxiety disorder, unspecified; Z79.82 Long term (current) use of aspirin; Q98.4 Klinefelter syndrome, unspecified
CPT/HCPCS: 36415; 70450-TC; 71045-TC-FY; 85025; 93005; 93010; 99284-25; J7030

== ENCOUNTER 2018-09-22 10:31 | Day surgery (SDC) | payer OTHER ==
[2018-09-20 11:10] VITALS: BMI 33.5
[2018-09-22] MEDS ORDERED: PROPOFOL 20 ML ONE ×2 (11:38)
[2018-09-22 12:28] VITALS: PULSE 76; TEMP 98
[2018-09-22 12:55] VITALS: BP 157/86
--- NOTE | 2018-09-27 17:03 | PATH ---
Surgical Pathology Report Patient Name: [facility]O [facility]. Rec. #: [id number] /Age/Gender: 1960 (Age: 57) / M Account: [id number] Location: [facility] Taken: 09/22/2018 Received: 09/24/2018 Reported: 09/27/2018 Physicians: Ronna Torres M.D. Specimen(s) Received A: SECOND PORTION DUODENUM B: ANTRUM C: GASTRIC BODY, NODULAR MUCOSA D: GE JUNCTION Clinical History Dyspepsia Postoperative diagnosis: Gastritis Final Diagnosis A. SECOND PORTION DUODENUM, BIOPSY: DUODENUM MUCOSA WITH NO SIGNIFICANT PATHOLOGIC CHANGE. NO HISTOLOGIC EVIDENCE OF CELIAC DISEASE. B. ANTRUM, BIOPSY: GASTRIC MUCOSA WITH CHRONIC GASTRITIS. IMMUNOSTAIN FOR H. PYLORI IS NEGATIVE. NEGATIVE FOR INTESTINAL METAPLASIA. C. GASTRIC BODY, NODULAR MUCOSA, BIOPSY: GASTRIC MUCOSA WITH MILD CHRONIC GASTRITIS AND DILATED GLANDS. IMMUNOSTAIN FOR H. PYLORI IS NEGATIVE. NEGATIVE FOR INTESTINAL METAPLASIA. D. GE JUNCTION, BIOPSY: GASTROESOPHAGEAL JUNCTIONAL MUCOSA WITH REFLUX ESOPHAGITIS. NEGATIVE INTESTINAL METAPLASIA. Electronically Signed Toshia Emery M.D. Gross Description A. Received in formalin, labeled "second portion of duodenum biopsy" is a med[place], irregular portion of soft tissue measuring 0.4 cm. in greatest dimension. The specimen is submitted in toto in one cassette. B. Received in formalin, labeled "antrum biopsy" is a med[place], irregular portion of soft tissue measuring 0.4 cm. in greatest dimension. The specimen is submitted in toto in one cassette. C. Received in formalin, labeled "nodular mucosa gastric body biopsy" is a medina, irregular portion of soft tissue measuring 0.4 cm. in greatest dimension. The specimen is submitted in toto in one cassette. D. Received in formalin, labeled "biopsy GE junction" is a med[place], irregular portion of soft tissue measuring 0.3 cm. in greatest dimension. The specimen is submitted in toto in one cassette. 09/24/201809/24/2018
== END 2018-09-22 13:00 ==
LOC: FASU-ENDO 10:31
PROVIDERS: ATTEND Internal Medicine Gastroenterology
PROC: 0DB68ZX Excision of Stomach, Via Natural or Artificial Opening Endoscopic, Diagnostic (ICD-10-PCS; 2018-09-22)
PROC: 0DB58ZX Excision of Esophagus, Via Natural or Artificial Opening Endoscopic, Diagnostic (ICD-10-PCS; 2018-09-22)
PROC: 0DB98ZX Excision of Duodenum, Via Natural or Artificial Opening Endoscopic, Diagnostic (ICD-10-PCS; principal; 2018-09-22 11:56)
DX: K30 Functional dyspepsia (principal); K29.50 Unspecified chronic gastritis without bleeding
CPT/HCPCS: 82962; 88305-TC; 88342-TC

== ENCOUNTER 2019-03-07 20:53 | Inpatient (IN) | payer OTHER ==
--- NOTE | 2019-03-07 22:44 | PDOC ---
Attending Attestation - Resident Resident Name: TannaPauly - ED Attending Attestation I have performed the following: I have examined & evaluated the patient, The case was reviewed & discussed with the resident, I agree w/resident's findings & plan - HPI HPI: 03/08/19 01:17 see resident hpi - Physicial Exam PE: 03/08/19 01:18 agree with resident exam - Medical Decision Making 03/08/19 01:18 58-year-old male with chest pain and lethargy Plan for altered mental status evaluation including arterial blood gas, ammonia level and d-dimer Labs pending, plan for admission to medical service for further evaluation pending results CTA versus chest x-ray pending d-dimer level
[2019-03-08 01:24] LABS: BASO % 0.5 % (0-2.0); EOS % 0.6 % (0-4.5); HEMATOCRIT 37.1 % (35.4-49); HEMOGLOBIN 12.2 GM/dL (11.7-16.9); LYMPH % 11.8 % (8-40); MCH 33.4 pg (25.7-33.7); MEAN CELL VOLUME 101.3 fl (80-96); MEAN PLT VOLUME 8.4 fl (7.5-11.1); MONO % 9.9 % (3.8-10.2); NEUT % 77.2 % (42.8-82.8); PLATELET COUNT 299 K/MM3 (134-434); RBC 3.66 M/mm3 (4.00-5.60); RDW 14.9 % (11.9-15.9)
[2019-03-08 01:35] LABS: INR 1.25 (0.83-1.09); PROTHROMBIN TIME (PATIENT) 14.8 SEC (9.7-13.0)
--- NOTE | 2019-03-08 01:50 | PDOC ---
History of Present Illness - General Chief Complaint: Cold Symptoms Stated Complaint: FLU LIKE SYMPTOMS Time Seen by Provider: 03/07/19 21:02 History Source: Patient Exam Limitations: Intoxication - History of Present Illness Initial Comments: 03/08/19 01:47 58y M with PMH of Polycythemia (gets phlebotomy), NIDDM, HTN, HLD presenting to ED with complaints of shortness of breath and chest pain for a few days (pt could not be more specific). He states he feels a pressure like sensation in his chest and feels short of breath when exhaling. He says the SOB and chest pain is constant, he feels more short of breath when lying down. He has had similar symptoms in the past. 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 He denies history of SD in self and family. Denies smoking, alcohol use. When asked if patient takes anything for anxiety patient says he does not know. Denies drug use. Denies cough, fevers, chills, abdominal pain, n/v/d, numbness/ tingling, weakness. Upon further questioning, patient states that his workplace may have called EMS because he thinks he passed out. PMD: in [place] PMH: see hpi PSH: Meds: Allergies: see allergy list Social: denies Past History - Past Medical History Allergies/Adverse Reactions: Allergies Allergy/AdvReac Type Severity Reaction Status Date / Time banana Allergy Unknown Verified 02/10/19 16:13 cephalexin Allergy Unknown Verified 02/10/19 16:13 chicken derived Allergy Unknown Verified 02/10/19 16:13 cinnamon Allergy Unknown Verified 02/10/19 16:13 codeine Allergy Unknown Verified 02/10/19 16:13 egg Allergy Unknown Verified 02/10/19 16:13 hydrochlorothiazide Allergy Unknown Verified 02/10/19 16:13 levofloxacin Allergy Unknown Verified 02/10/19 16:13 onion Allergy Unknown Verified 02/10/19 16:13 pepper (genus Capsicum) Allergy Unknown Verified 02/10/19 16:13 tomato Allergy Unknown Verified 09/22/18 11:22 Home Medications: Ambulatory Orders Apixaban [Eliquis] 5 mg PO BID 01/26/17 LORazepam [Lorazepam] 1 mg PO TID 01/26/17 Lisinopril [Prinivil] 20 mg PO DAILY 01/26/17 Aspirin [ASA -] 81 mg PO DAILY 01/27/17 Ergocalciferol (Vitamin D2) [Vitamin D2] 50,000 unit PO WEEKLY 01/27/17 Insulin Lispro [Humalog] 0 unit SQ TID PRN 01/27/17 Hydroxyurea [Hydrea 500Mg Capsule -] 500 mg PO BID #60 capsule 01/28/17 Furosemide [Lasix] 40 mg PO DAILY 02/10/17 Metoprolol Tartrate 25 mg PO BID 02/10/17 Nitroglycerin 0.4 mg SL ASDIR PRN 07/29/17 Mirtazapine [Remeron -] 15 mg PO HS 03/18/18 Multivitamins [Multivit ([facility] Formulary)] 1 tab PO DAILY 03/18/18 Oxycodone HCl 5 mg PO PRN 03/18/18 Metformin HCl [Glucophage] 1,000 mg PO BID 09/17/18 Olanzapine 7.5 mg PO HS 09/17/18 Acetaminophen 650 mg PO Q8H PRN 09/20/18 Dronedarone HCl [Multaq] 400 mg PO BID 09/20/18 Gabapentin [Neurontin] 600 mg PO TID 09/20/18 Insulin Glargine,Hum.rec.anlog [Lantus] 100 unit SQ DAILY 09/20/18 Insulin Lispro [Humalog] 60 unit SQ TID 09/20/18 Mirabegron [Myrbetriq] 25 mg PO DAILY 09/20/18 Pantoprazole Sodium [Protonix] 40 mg PO DAILY 09/20/18 Pramipexole Dihydrochloride [Mirapex -] 0.25 mg PO BID 09/20/18 Azelastine HCl 137 mcg NS BID 09/22/18 Levocetirizine Dihydrochloride [Xyzal] 5 mg PO DAILY 09/22/18 Ondansetron HCl [Zofran] 8 mg PO Q8H PRN 09/22/18 Paroxetine HCl [Paxil] 40 mg PO DAILY 09/22/18 Polyethylene Glycol 3350 [Miralax (For Daily Use) -] 17 gm PO BID 09/22/18 Clotrimazole 15 gm TP BID 03/07/19 Doxepin HCl 50 mg PO DAILY 03/07/19 Dulaglutide [Trulicity] 1.5 mg SQ WEEKLY 03/07/19 Gemfibrozil 600 mg PO BID 03/07/19 Hydrocodone/Acetaminophen [[place] 5-325 Tablet] 1 each PO PRN 03/07/19 Insulin Glargine,Hum.rec.anlog [Toujeo Max Solostar] 300 unit SQ HS 03/07/19 Insulin Regular, Human [Humulin R U-500 Kwikpen] 500 unit SQ TID 03/07/19 Ipratropium/Albuterol Sulfate [Iprat-Albut 0.5-3(2.5) mg/3 ml] 3 ml IH PRN 03/07 Loperamide HCl [Imodium -] 2 mg PO DAILY PRN 03/07/19 Meclizine HCl 25 mg PO HS 03/07/19 Nystatin [Nyamyc] 60 gm TP BID 03/07/19 Rosuvastatin Calcium [Crestor] 20 mg PO HS 03/07/19 Anemia: Yes (vitamin D deficiency, polycythemia) Cancer: No Cardiac Disorders: Yes (A-FIB) COPD: No CHF: Yes Diabetes: Yes GI Disorders: Yes (constipation,hemorrhoids) Disorders: No HTN: Yes Hypercholesterolemia: Yes Liver Disease: Yes (abnormal LFT's) Psychiatric Problems: Yes (schizophrenia, anxiety) - Surgical History Abdominal Surgery: No Appendectomy: No Cardiac Surgery: No Cholecystectomy: No Lung Surgery: No Neurologic Surgery: No Orthopedic Surgery: No - Psycho Social/Smoking Cessation Hx Smoking History: Never smoked Have you smoked in the past 12 months: No Hx Alcohol Use: No Drug/Substance Use Hx: No Substance Use Type: None Review of Systems - Review of Systems Constitutional: Yes: Weakness. No: Chills, Fever HEENTM: No: Symptoms Reported Respiratory: Yes: Shortness of Breath, SOB with Exertion, SOB at Rest. No: Cough, Wheezing, Productive cough Cardiac (ROS): Yes: See HPI, Chest Pain, Syncope ABD/GI: No: Constipated, Diarrhea, Nausea, Rectal Bleeding, Vomiting, Abdominal cramping : No: Symptoms Reported Musculoskeletal: No: Muscle Pain, Muscle Weakness, Neck Pain Integumentary: No: Symptoms Reported Neurological: No: Headache, Numbness, Tingling, Tremors, Weakness Psychiatric: Yes: Anxiety *Physical Exam - Vital Signs Last Vital Signs Temp Pulse Resp BP Pulse Ox 97.1 F L 68 18 131/59 L 92 L 03/07/19 21:05 03/07/19 21:05 03/07/19 21:05 03/07/19 21:05 03/07/19 21:05 - Physical Exam General Appearance: Yes: Appropriately Dressed, Obese. No: Apparent Distress HEENT: positive: EOMI, ANAI (dilated pupils), Pharynx Normal Neck: positive: Trachea midline, Supple. negative: Lymphadenopathy (R), Lymphadenopathy (L) Respiratory/Chest: positive: Lungs Clear, Normal Breath Sounds. negative: Accessory Muscle Use, Labored Respiration, Crackles, Rales, Rhonchi, Stridor, Wheezing Cardiovascular: positive: Regular Rhythm, Regular Rate, S1, S2. negative: Edema , JVD, Murmur Vascular Pulses: Carotid (L): 2+, Doralis-Pedis (L): 2+ Gastrointestinal/Abdominal: positive: Normal Bowel Sounds, Soft, Distended. negative: Tenderness Musculoskeletal: negative: CVA Tenderness Extremity: negative: Pedal Edema, Swelling, Calf Tenderness Integumentary: positive: Normal Color, Dry, Warm Neurologic: positive: remedy developer II-XII NML intact, Alert, Motor Strength 5/5, Depressed Affect ED Treatment Course - LABORATORY CBC & Chemistry Diagram: 03/08/19 00:59 03/08/19 05:21 - ADDITIONAL ORDERS Additional order review: Laboratory Results 03/08/19 00:59 PT with INR 14.80 H INR 1.25 H 03/08/19 00:59 RBC 3.66 L MCV 101.3 H MCHC 33.0 RDW 14.9 D MPV 8.4 Neutrophils % 77.2 D Lymphocytes % 11.8 D Monocytes % 9.9 Eosinophils % 0.6 D Basophils % 0.5 - RADIOLOGY Radiology Studies Ordered: Category Date Time Status CHEST PA & LAT [RAD] Stat Radiology 03/08/19 00:43 Ordered Medical Decision Making - Medical Decision Making 03/08/19 06:57 58y M with PMH of PCV, HTN, HLD, DM presenting to ED with complaints of chest pain and sob. later states he might have passed out. vitals: 92% on RA. not tachypneic, not tachycardic. ddx includes but not limited to acs, pe, ptx, pna, viral illness, intoxication, overdose, patient had slow response but is otherwise aox3 and obeying commands. suspect drug use although patient denies. will obtain basic labs, trop, bnp, salicylates, apap, alcohol, ammonia, ua, ucx labs significant for cr 8 and bun 100s, gfr 6. normal 2 years ago. negative trop, bnp slightly elevated. d-diner 500s however normal for patient's age. cannot use contrast given yesica K 6.1. will give dextrose and insulin. ekg: enlarged p waves, no peaked t waves, no pallavi or depressions, no signs of acute ischemia. cxr: no radiographic evidence of fluid overload or infiltrates/consolidations. Spoke to Dr. Lyn and recommended north with 1L bolus and 150cc/h fluids. will send lytes UA negative for infection. Will admit to hospitalist for kidney injury. Discharge - Discharge Information Problems reviewed: Yes Clinical Impression/Diagnosis: YESICA (acute kidney injury) Condition: Stable - Admission Yes - Follow up/Referral - Patient Discharge Instructions - Post Discharge Activity
[2019-03-08 01:55] LABS: ALBUMIN 3.9 g/dl (3.4-5.0); ALK PHOS 104 U/L (45-117); ANION GAP 14 MMOL/L (8-16); BILIRUBIN,TOTAL 0.4 mg/dL (0.2-1); CHLORIDE 94 mmol/L (98-107); CO2 22 mmol/L (21-32); GLUCOSE,RANDOM 148 mg/dL (74-106); SGOT/AST 54 U/L (15-37); SGPT/ALT 59 U/L (13-61); SODIUM 130 mmol/L (136-145); TOT PROT 8.4 g/dl (6.4-8.2)
[2019-03-08 01:55] LABS: ARTERIAL BLOOD GAS PO2 66.3 mmHg (80-100); ARTERIAL BLOOD GAS pH 7.25 (7.35-7.45)
[2019-03-08 01:56] LABS: BLOOD UREA NITROGEN 104.9 mg/dL (7-18); CREATININE 8.6 mg/dL (0.55-1.3); POTASSIUM 6.1 mmol/L (3.5-5.1)
[2019-03-08 01:58] LABS: CARBOXYHEMOGLOBIN 1.6 % (0-2)
[2019-03-08] MEDS ORDERED: SODIUM BICARBONATE 8.4% 50 MEQ/50 ML DISP.SYRIN IVPUSH ONE (02:14)
[2019-03-08] MEDS ORDERED: INSULIN REGULAR HUMAN 100 UNITS/ML *VIAL SQ ONE (02:15)
[2019-03-08] MEDS ORDERED: DEXTROSE 50%-WATER - 25 GM/50 ML VIAL IVPUSH ONE (02:16)
[2019-03-08] MEDS ORDERED: INSULIN REGULAR HUMAN 100 UNITS/ML *VIAL ONE (02:31)
[2019-03-08] MEDS ORDERED: SODIUM BICARBONATE 8.4% 50 MEQ/50 ML VIAL ONE (02:31)
[2019-03-08] MEDS ORDERED: DEXTROSE 50%-WATER 25 GM/50 ML DISP.SYRIN ONE (02:32)
[2019-03-08] MEDS ORDERED: SODIUM CHLORIDE 1,000 ML IV STA (02:43)
[2019-03-08] MEDS ORDERED: SODIUM CHLORIDE 1,000 ML IV SCH (02:45)
[2019-03-08 05:05] LABS: EPI CELLS 1.6 /HPF (0-5/HPF); HYALINE CASTS 2 /lpf (0-8); URINE APPEARANCE CLOUDY; URINE BACTERIA 0.5 /hpf (NEGATIVE); URINE BILIRUBIN NEGATIVE (NEGATIVE); URINE COLOR YELLOW; URINE GLUCOSE (UA) TRACE (NEGATIVE); URINE KETONE NEGATIVE (NEGATIVE); URINE LEUK ESTERASE NEGATIVE (NEGATIVE); URINE NITRITE NEGATIVE (NEGATIVE); URINE PROTEIN 2+ (NEGATIVE); URINE RBC 3 /hpf (0-4); URINE UROBILINOGEN 0.2 mg/dL (0.2-1.0); URINE WBC 5 /hpf (0-5)
[2019-03-08 05:22] LABS: COCAINE, UR NEGATIVE ng/ml (CUTOFF=300); METHADONE, UR NEGATIVE ng/ml (CUTOFF=300); PHENCYCLIDINE,URINE NEGATIVE ng/ml (CUTOFF=25); URINE AMPHETAMINES NEGATIVE ng/ml (CUTOFF=500); URINE BARBITURATES NEGATIVE ng/ml (CUTOFF=200); URINE BENZODIAZEPINES NEGATIVE ng/ml (CUTOFF=200)
[2019-03-08 05:25] LABS: OPIATES, URI POSITIVE ng/ml (CUTOFF=300)
[2019-03-08 06:07] LABS: ANION GAP 16 MMOL/L (8-16); BLOOD UREA NITROGEN 102.4 mg/dL (7-18); CALCIUM 8.1 mg/dL (8.5-10.1); CHLORIDE 95 mmol/L (98-107); CO2 22 mmol/L (21-32); GLUCOSE,RANDOM 201 mg/dL (74-106); POTASSIUM 5.3 mmol/L (3.5-5.1); SODIUM 132 mmol/L (136-145)
[2019-03-08 06:08] LABS: CREATININE 8.5 mg/dL (0.55-1.3)
--- NOTE | 2019-03-08 07:30 | HP ---
CHIEF COMPLAINT: chest tightness PCP: HISTORY OF PRESENT ILLNESS: Patient is a 58 year old male with history of polycythemia, insulin dependent diabetes mellitus, hypertension, hyperlipidemia, Afib (on Eliquis), axiety, schizopreia, ?Klinefelters, presents with complaint of chest tightness. Symptoms have been ongoing for past few days without clear inciting event. Symptoms associated with shortness of breath that is worst when lying on his side. ER course was notable for: (1) (2) (3) Recent Travel: PAST MEDICAL HISTORY: PAST SURGICAL HISTORY: Social History: Smoking: Alcohol: Drugs: Allergies banana Allergy (Unknown, Verified 02/10/19 16:13) cephalexin Allergy (Unknown, Verified 02/10/19 16:13) chicken derived Allergy (Unknown, Verified 02/10/19 16:13) cinnamon Allergy (Unknown, Verified 02/10/19 16:13) codeine Allergy (Unknown, Verified 02/10/19 16:13) egg Allergy (Unknown, Verified 02/10/19 16:13) hydrochlorothiazide Allergy (Unknown, Verified 02/10/19 16:13) levofloxacin Allergy (Unknown, Verified 02/10/19 16:13) onion Allergy (Unknown, Verified 02/10/19 16:13) pepper (genus Capsicum) Allergy (Unknown, Verified 02/10/19 16:13) tomato Allergy (Unknown, Verified 09/22/18 11:22) HOME MEDICATIONS: Home Medications Medication Instructions Recorded Apixaban [Eliquis] 5 mg PO BID 01/26/17 LORazepam [Lorazepam] 1 mg PO TID 01/26/17 Lisinopril [Prinivil] 20 mg PO DAILY 01/26/17 Aspirin [ASA -] 81 mg PO DAILY 01/27/17 Ergocalciferol (Vitamin D2) 50,000 unit PO WEEKLY 01/27/17 [Vitamin D2] Hydroxyurea [Hydrea 500Mg Capsule 500 mg PO BID #60 capsule 01/28/17 -] Furosemide [Lasix] 40 mg PO DAILY 02/10/17 Metoprolol Tartrate 25 mg PO BID 02/10/17 Nitroglycerin 0.4 mg SL ASDIR PRN 07/29/17 Mirtazapine [Remeron -] 15 mg PO HS 03/18/18 Multivitamins [Multivit ([facility] 1 tab PO DAILY 03/18/18 Formulary)] Oxycodone HCl 5 mg PO PRN 03/18/18 Metformin HCl [Glucophage] 1,000 mg PO BID 09/17/18 Olanzapine 7.5 mg PO HS 09/17/18 Acetaminophen 650 mg PO Q8H PRN 09/20/18 Dronedarone HCl [Multaq] 400 mg PO BID 09/20/18 Gabapentin [Neurontin] 600 mg PO TID 09/20/18 Insulin Glargine,Hum.rec.anlog 100 unit SQ DAILY 09/20/18 [Lantus] Mirabegron [Myrbetriq] 25 mg PO DAILY 09/20/18 Pantoprazole Sodium [Protonix] 40 mg PO DAILY 09/20/18 Pramipexole Dihydrochloride 0.25 mg PO BID 09/20/18 [Mirapex -] Azelastine HCl 137 mcg NS BID 09/22/18 Levocetirizine Dihydrochloride 5 mg PO DAILY 09/22/18 [Xyzal] Ondansetron HCl [Zofran] 8 mg PO Q8H PRN 09/22/18 Paroxetine HCl [Paxil] 40 mg PO DAILY 09/22/18 Polyethylene Glycol 3350 [Miralax 17 gm PO BID 09/22/18 (For Daily Use) -] Clotrimazole 15 gm TP BID 03/07/19 Doxepin HCl 50 mg PO DAILY 03/07/19 Dulaglutide [Trulicity] 1.5 mg SQ WEEKLY 03/07/19 Gemfibrozil 600 mg PO BID 03/07/19 Hydrocodone/Acetaminophen [[place] 1 each PO PRN 03/07/19 5-325 Tablet] Insulin Glargine,Hum.rec.anlog 300 unit SQ HS 03/07/19 [[place] Max Solostar] Insulin Regular, Human [Humulin R 500 unit SQ TID 03/07/19 U-500 Kwikpen] Ipratropium/Albuterol Sulfate 3 ml IH PRN 03/07/19 [Iprat-Albut 0.5-3(2.5) mg/3 ml] Loperamide HCl [Imodium -] 2 mg PO DAILY PRN 03/07/19 Meclizine HCl 25 mg PO HS 03/07/19 Nystatin [Nyamyc] 60 gm TP BID 03/07/19 Rosuvastatin Calcium [Crestor] 20 mg PO HS 03/07/19 REVIEW OF SYSTEMS CONSTITUTIONAL: Absent: fever, chills, diaphoresis, generalized weakness, malaise, loss of appetite, weight change HEENT: Absent: rhinorrhea, nasal congestion, throat pain, throat swelling, difficulty swallowing, mouth swelling, ear pain, eye pain, visual changes CARDIOVASCULAR: Absent: chest pain, syncope, palpitations, irregular heart rate, lightheadedness , peripheral edema RESPIRATORY: Absent: cough, shortness of breath, dyspnea with exertion, orthopnea, wheezing, stridor, hemoptysis GASTROINTESTINAL: Absent: abdominal pain, abdominal distension, nausea, vomiting, diarrhea, constipation, melena, hematochezia GENITOURINARY: Absent: dysuria, frequency, urgency, hesitancy, hematuria, flank pain, genital pain MUSCULOSKELETAL: Absent: myalgia, arthralgia, joint swelling, back pain, neck pain SKIN: Absent: rash, itching, pallor HEMATOLOGIC/IMMUNOLOGIC: Absent: easy bleeding, easy bruising, lymphadenopathy, frequent infections ENDOCRINE: Absent: unexplained weight gain, unexplained weight loss, heat intolerance, cold intolerance NEUROLOGIC: Absent: headache, focal weakness or paresthesias, dizziness, unsteady gait, seizure, mental status changes, bladder or bowel incontinence PSYCHIATRIC: Absent: anxiety, depression, suicidal or homicidal ideation, hallucinations. PHYSICAL EXAMINATION Vital Signs - 24 hr 03/07/19 03/08/19 21:05 03:10 Temperature 97.1 F L Pulse Rate 68 Pulse Rate [ 76 Right Radial] Respiratory 18 19 Rate Blood Pressure 131/59 L Blood Pressure 125/67 [Left Arm] O2 Sat by Pulse 92 L 99 Oximetry (%) GENERAL: Awake, alert, and fully oriented, in no acute distress. HEAD: Normal with no signs of trauma. EYES: Pupils equal, round and reactive to light, extraocular movements intact, sclera anicteric, conjunctiva clear. No lid lag. EARS, NOSE, THROAT: Ears normal, nares patent, oropharynx clear without exudates. Moist mucous membranes. NECK: Normal range of motion, supple without lymphadenopathy, JVD, or masses. LUNGS: Breath sounds equal, clear to auscultation bilaterally. No wheezes, and no crackles. No accessory muscle use. HEART: Regular rate and rhythm, normal S1 and S2 without murmur, rub or gallop. ABDOMEN: Soft, nontender, not distended, normoactive bowel sounds, no guarding, no rebound, no masses. No hepatomegaly or splenomegaly. MUSCULOSKELETAL: Normal range of motion at all joints. No bony deformities or tenderness. No CVA tenderness. UPPER EXTREMITIES: 2+ pulses, warm, well-perfused. No cyanosis. No clubbing. No peripheral edema. LOWER EXTREMITIES: 2+ pulses, warm, well-perfused. No calf tenderness. No peripheral edema. NEUROLOGICAL: Cranial nerves II-XII intact. Normal speech. Normal gait. PSYCHIATRIC: Cooperative. Good eye contact. Appropriate mood and affect. SKIN: Warm, dry, normal turgor, no rashes or lesions noted, normal capillary refill. Laboratory Results - last 24 hr 03/08/19 03/08/19 03/08/19 00:58 00:59 00:59 WBC 11.0 H RBC 3.66 L Hgb 12.2 Hct 37.1 D MCV 101.3 H MCH 33.4 MCHC 33.0 RDW 14.9 D Plt Count 299 D MPV 8.4 Absolute Neuts (auto) 8.5 H Neutrophils % 77.2 D Lymphocytes % 11.8 D Monocytes % 9.9 Eosinophils % 0.6 D Basophils % 0.5 Nucleated RBC % 0 PT with INR INR D-Dimer 533 H Anticoagulation Therapy Puncture Site ABG pH ABG pCO2 at Pt Temp ABG pO2 at Pt Temp ABG HCO3 ABG O2 Sat (Measured) ABG O2 Content ABG Base Excess Tae Test Carboxyhemoglobin Methemoglobin O2 Delivery Device Oxygen Flow Rate Vent Mode Vent Rate Mechanical Rate Pressure Support Vent Sodium 130 L Potassium 6.1 H* Chloride 94 L Carbon Dioxide 22 Anion Gap 14 BUN 104.9 H* Creatinine 8.6 H* Est GFR (CKD-EPI)AfAm 7.20 Est GFR (CKD-EPI)NonAf 6.21 POC Glucometer Random Glucose 148 H Calcium 9.0 Total Bilirubin 0.4 AST 54 H ALT 59 Alkaline Phosphatase 104 Ammonia Troponin I < 0.02 B-Natriuretic Peptide Total Protein 8.4 H Albumin 3.9 Urine Color Urine Appearance Urine pH Ur Specific [place] Urine Protein Urine Glucose (UA) Urine Ketones Urine Blood Urine Nitrite Urine Bilirubin Urine Urobilinogen Ur Leukocyte Esterase Urine WBC (Auto) Urine RBC (Auto) Urine Casts (Auto) U Epithel Cells (Auto) Urine Bacteria (Auto) Ur Random Creatinine Ur Random Sodium Salicylates Opiates Screen Methadone Screen Acetaminophen Barbiturate Screen Phencyclidine Screen Ur Amphetamines Screen MDMA (Ecstasy) Screen Benzodiazepines Screen Cocaine Screen U Marijuana (THC) Screen Alcohol, Quantitative 03/08/19 03/08/19 03/08/19 00:59 00:59 01:11 WBC RBC Hgb Hct MCV MCH MCHC RDW Plt Count MPV Absolute Neuts (auto) Neutrophils % Lymphocytes % Monocytes % Eosinophils % Basophils % Nucleated RBC % PT with INR 14.80 H INR 1.25 H D-Dimer Anticoagulation Therapy Puncture Site ABG pH ABG pCO2 at Pt Temp ABG pO2 at Pt Temp ABG HCO3 ABG O2 Sat (Measured) ABG O2 Content ABG Base Excess Tae Test Carboxyhemoglobin Methemoglobin O2 Delivery Device Oxygen Flow Rate Vent Mode Vent Rate Mechanical Rate Pressure Support Vent Sodium Potassium Chloride Carbon Dioxide Anion Gap BUN Creatinine Est GFR (CKD-EPI)AfAm Est GFR (CKD-EPI)NonAf POC Glucometer Random Glucose Calcium Total Bilirubin AST ALT Alkaline Phosphatase Ammonia Troponin I B-Natriuretic Peptide 189.1 H Total Protein Albumin Urine Color Urine Appearance Urine pH Ur Specific [place] Urine Protein Urine Glucose (UA) Urine Ketones Urine Blood Urine Nitrite Urine Bilirubin Urine Urobilinogen Ur Leukocyte Esterase Urine WBC (Auto) Urine RBC (Auto) Urine Casts (Auto) U Epithel Cells (Auto) Urine Bacteria (Auto) Ur Random Creatinine Ur Random Sodium Salicylates Opiates Screen Methadone Screen Acetaminophen <2.0 Barbiturate Screen Phencyclidine Screen Ur Amphetamines Screen MDMA (Ecstasy) Screen Benzodiazepines Screen Cocaine Screen U Marijuana (THC) Screen Alcohol, Quantitative Cancelled 03/08/19 03/08/19 03/08/19 01:19 01:32 01:32 WBC RBC Hgb Hct MCV MCH MCHC RDW Plt Count MPV Absolute Neuts (auto) Neutrophils % Lymphocytes % Monocytes % Eosinophils % Basophils % Nucleated RBC % PT with INR INR D-Dimer Anticoagulation Therapy No Result Required. Puncture Site No Result Required. ABG pH 7.25 L ABG pCO2 at Pt Temp 43.0 ABG pO2 at Pt Temp 66.3 L ABG HCO3 18.4 L ABG O2 Sat (Measured) 92.0 L ABG O2 Content 15.6 ABG Base Excess -8.0 L Tae Test No Result Required. Carboxyhemoglobin 1.6 Methemoglobin < 1.0 O2 Delivery Device No Result Required. Oxygen Flow Rate No Result Required. Vent Mode No Result Required. Vent Rate No Result Required. Mechanical Rate No Result Required. Pressure Support Vent No Result Required. Sodium Potassium Chloride Carbon Dioxide Anion Gap BUN Creatinine Est GFR (CKD-EPI)AfAm Est GFR (CKD-EPI)NonAf POC Glucometer Random Glucose Calcium Total Bilirubin AST ALT Alkaline Phosphatase Ammonia Troponin I B-Natriuretic Peptide Total Protein Albumin Urine Color Urine Appearance Urine pH Ur Specific [place] Urine Protein Urine Glucose (UA) Urine Ketones Urine Blood Urine Nitrite Urine Bilirubin Urine Urobilinogen Ur Leukocyte Esterase Urine WBC (Auto) Urine RBC (Auto) Urine Casts (Auto) U Epithel Cells (Auto) Urine Bacteria (Auto) Ur Random Creatinine Ur Random Sodium Salicylates < 1.7 L Opiates Screen Methadone Screen Acetaminophen Barbiturate Screen Phencyclidine Screen Ur Amphetamines Screen MDMA (Ecstasy) Screen Benzodiazepines Screen Cocaine Screen U Marijuana (THC) Screen Alcohol, Quantitative 03/08/19 03/08/19 03/08/19 02:00 02:34 03:10 WBC RBC Hgb Hct MCV MCH MCHC RDW Plt Count MPV Absolute Neuts (auto) Neutrophils % Lymphocytes % Monocytes % Eosinophils % Basophils % Nucleated RBC % PT with INR INR D-Dimer Anticoagulation Therapy Puncture Site ABG pH ABG pCO2 at Pt Temp ABG pO2 at Pt Temp ABG HCO3 ABG O2 Sat (Measured) ABG O2 Content ABG Base Excess Tae Test Carboxyhemoglobin Methemoglobin O2 Delivery Device Oxygen Flow Rate Vent Mode Vent Rate Mechanical Rate Pressure Support Vent Sodium Potassium Chloride Carbon Dioxide Anion Gap BUN Creatinine Est GFR (CKD-EPI)AfAm Est GFR (CKD-EPI)NonAf POC Glucometer 276 Random Glucose Calcium Total Bilirubin AST ALT Alkaline Phosphatase Ammonia 44.90 H Troponin I B-Natriuretic Peptide Total Protein Albumin Urine Color Urine Appearance Urine pH Ur Specific [place] Urine Protein Urine Glucose (UA) Urine Ketones Urine Blood Urine Nitrite Urine Bilirubin Urine Urobilinogen Ur Leukocyte Esterase Urine WBC (Auto) Urine RBC (Auto) Urine Casts (Auto) U Epithel Cells (Auto) Urine Bacteria (Auto) Ur Random Creatinine Ur Random Sodium Salicylates Opiates Screen Methadone Screen Acetaminophen Barbiturate Screen Phencyclidine Screen Ur Amphetamines Screen MDMA (Ecstasy) Screen Benzodiazepines Screen Cocaine Screen U Marijuana (THC) Screen Alcohol, Quantitative < 3 03/08/19 03/08/19 03/08/19 04:40 04:40 04:40 WBC RBC Hgb Hct MCV MCH MCHC RDW Plt Count MPV Absolute Neuts (auto) Neutrophils % Lymphocytes % Monocytes % Eosinophils % Basophils % Nucleated RBC % PT with INR INR D-Dimer Anticoagulation Therapy Puncture Site ABG pH ABG pCO2 at Pt Temp ABG pO2 at Pt Temp ABG HCO3 ABG O2 Sat (Measured) ABG O2 Content ABG Base Excess Tae Test Carboxyhemoglobin Methemoglobin O2 Delivery Device Oxygen Flow Rate Vent Mode Vent Rate Mechanical Rate Pressure Support Vent Sodium Potassium Chloride Carbon Dioxide Anion Gap BUN Creatinine Est GFR (CKD-EPI)AfAm Est GFR (CKD-EPI)NonAf POC Glucometer Random Glucose Calcium Total Bilirubin AST ALT Alkaline Phosphatase Ammonia Troponin I B-Natriuretic Peptide Total Protein Albumin Urine Color Yellow Urine Appearance Cloudy Urine pH 5.0 Ur Specific [place] 1.015 Urine Protein 2+ H Urine Glucose (UA) Trace Urine Ketones Negative Urine Blood 2+ H Urine Nitrite Negative Urine Bilirubin Negative Urine Urobilinogen 0.2 Ur Leukocyte Esterase Negative Urine WBC (Auto) 5 Urine RBC (Auto) 3 Urine Casts (Auto) 2 U Epithel Cells (Auto) 1.6 Urine Bacteria (Auto) 0.5 Ur Random Creatinine 100.0 Ur Random Sodium 47 Salicylates Opiates Screen Positive A* Methadone Screen Negative Acetaminophen Barbiturate Screen Negative Phencyclidine Screen Negative Ur Amphetamines Screen Negative MDMA (Ecstasy) Screen Negative Benzodiazepines Screen Negative Cocaine Screen Negative U Marijuana (THC) Screen Negative Alcohol, Quantitative 03/08/19 05:21 WBC RBC Hgb Hct MCV MCH MCHC RDW Plt Count MPV Absolute Neuts (auto) Neutrophils % Lymphocytes % Monocytes % Eosinophils % Basophils % Nucleated RBC % PT with INR INR D-Dimer Anticoagulation Therapy Puncture Site ABG pH ABG pCO2 at Pt Temp ABG pO2 at Pt Temp ABG HCO3 ABG O2 Sat (Measured) ABG O2 Content ABG Base Excess Tae Test Carboxyhemoglobin Methemoglobin O2 Delivery Device Oxygen Flow Rate Vent Mode Vent Rate Mechanical Rate Pressure Support Vent Sodium 132 L Potassium 5.3 H Chloride 95 L Carbon Dioxide 22 Anion Gap 16 BUN 102.4 H Creatinine 8.5 H* Est GFR (CKD-EPI)AfAm 7.30 Est GFR (CKD-EPI)NonAf 6.30 POC Glucometer Random Glucose 201 H Calcium 8.1 L Total Bilirubin AST ALT Alkaline Phosphatase Ammonia Troponin I < 0.02 B-Natriuretic Peptide Total Protein Albumin Urine Color Urine Appearance Urine pH Ur Specific [place] Urine Protein Urine Glucose (UA) Urine Ketones Urine Blood Urine Nitrite Urine Bilirubin Urine Urobilinogen Ur Leukocyte Esterase Urine WBC (Auto) Urine RBC (Auto) Urine Casts (Auto) U Epithel Cells (Auto) Urine Bacteria (Auto) Ur Random Creatinine Ur Random Sodium Salicylates Opiates Screen Methadone Screen Acetaminophen Barbiturate Screen Phencyclidine Screen Ur Amphetamines Screen MDMA (Ecstasy) Screen Benzodiazepines Screen Cocaine Screen U Marijuana (THC) Screen Alcohol, Quantitative ASSESSMENT/PLAN: ATTENDING PHYSICIAN STATEMENT I saw and evaluated the patient. I reviewed the resident's note and discussed the case with the resident. I agree with the resident's findings and plan as documented. SUBJECTIVE: OBJECTIVE: ASSESSMENT AND PLAN:
--- NOTE | 2019-03-08 09:42 | EKG ---
Test Reason : Blood Pressure : / mmHG Vent. Rate : 072 BPM Atrial Rate : 072 BPM P-R Int : 174 ms QRS Dur : 094 ms QT Int : 408 ms P-R-T Axes : 047 052 095 degrees QTc Int : 446 ms NORMAL SINUS RHYTHM POSSIBLE LEFT ATRIAL ENLARGEMENT NONSPECIFIC T WAVE ABNORMALITY ABNORMAL ECG WHEN COMPARED WITH ECG OF 29-JUL-2017 11:28, NO SIGNIFICANT CHANGE WAS FOUND Confirmed by MD Real, Malcolm ([id number]) on 03/08/2019 9:42:07 AM Referred By: Confirmed By:Malcolm Noble MD
[2019-03-08] MEDS ORDERED: LIDOCAINE HCL 2% JELLY 10 ML CARTRIDGE ONE ×2 (10:06→10:07)
--- NOTE | 2019-03-08 10:28 | HP ---
Admitting History and Physical - Primary Care Physician PCP: Claude Barron - Admission Chief Complaint: Syncope, Chest pain, SOB History of Present Illness: 58y M with PMH of Polycythemia Vera (gets phlebotomy), NIDDM, HTN, HLD presenting to ED with complaints of shortness of breath and chest pain for a few days (pt could not be more specific). He states he feels a pressure like sensation in his chest and feels short of breath when exhaling. He says the SOB and chest pain is constant, he feels more short of breath when lying down. He has had similar symptoms in the past. 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 He denies history of CO in self and family. Denies smoking , alcohol use. When asked if patient takes anything for anxiety patient says he does not know. Denies drug use. Denies cough, fevers, chills, abdominal pain, n/ v/d, numbness/tingling, weakness. Others' Prescriptions Patient Name: Quinn Werner Date: 1960 Address: [address] [place] [address] Sex: Male Rx Written Rx Dispensed Drug Quantity Days Supply Prescriber Name 03/01/2019 03/05/2019 lorazepam 1 mg tablet 60 20 Haris Campoverde MD 02/22/2019 02/22/2019 hydrocodone-acetaminophen 5-325 mg tablet 60 30 Haris Campoverde MD 02/01/2019 02/01/2019 lorazepam 2 mg tablet 90 30 Haris Campoverde MD 12/28/2018 12/28/2018 lorazepam 2 mg tablet 90 30 Haris Campoverde MD 12/27/2018 12/27/2018 lorazepam 2 mg tablet 15 5 Haris Campoverde MD 12/23/2018 12/23/2018 lorazepam 2 mg tablet 15 5 Haris Campoverde MD History Source: Patient Limitations to Obtaining History: No Limitations - Past Medical History Cardiovascular: Yes: AFIB, HTN, Hyperlipdemia Heme/Onc: Yes: Other (Polycythemia vera) Psych: Yes: Schizophrenia Endocrine: Yes: Diabetes Mellitus - Smoking History Smoking history: Never smoked Have you smoked in the past 12 months: No - Alcohol/Substance Use Hx Alcohol Use: No Home Medications - Allergies Allergies/Adverse Reactions: Allergies Allergy/AdvReac Type Severity Reaction Status Date / Time banana Allergy Unknown Verified 02/10/19 16:13 cephalexin Allergy Unknown Verified 02/10/19 16:13 chicken derived Allergy Unknown Verified 02/10/19 16:13 cinnamon Allergy Unknown Verified 02/10/19 16:13 codeine Allergy Unknown Verified 02/10/19 16:13 egg Allergy Unknown Verified 02/10/19 16:13 hydrochlorothiazide Allergy Unknown Verified 02/10/19 16:13 levofloxacin Allergy Unknown Verified 02/10/19 16:13 onion Allergy Unknown Verified 02/10/19 16:13 pepper (genus Capsicum) Allergy Unknown Verified 02/10/19 16:13 tomato Allergy Unknown Verified 09/22/18 11:22 - Home Medications Home Medications: Ambulatory Orders Apixaban [Eliquis] 5 mg PO BID 01/26/17 LORazepam [Lorazepam] 1 mg PO TID 01/26/17 Lisinopril [Prinivil] 20 mg PO DAILY 01/26/17 Aspirin [ASA -] 81 mg PO DAILY 01/27/17 Ergocalciferol (Vitamin D2) [Vitamin D2] 50,000 unit PO WEEKLY 01/27/17 Hydroxyurea [Hydrea 500Mg Capsule -] 500 mg PO BID #60 capsule 01/28/17 Furosemide [Lasix] 40 mg PO DAILY 02/10/17 Metoprolol Tartrate 25 mg PO BID 02/10/17 Nitroglycerin 0.4 mg SL ASDIR PRN 07/29/17 Mirtazapine [Remeron -] 15 mg PO HS 03/18/18 Multivitamins [Multivit ([facility] Formulary)] 1 tab PO DAILY 03/18/18 Oxycodone HCl 5 mg PO PRN 03/18/18 Metformin HCl [Glucophage] 1,000 mg PO BID 09/17/18 Olanzapine 7.5 mg PO HS 09/17/18 Acetaminophen 650 mg PO Q8H PRN 09/20/18 Dronedarone HCl [Multaq] 400 mg PO BID 09/20/18 Gabapentin [Neurontin] 600 mg PO TID 09/20/18 Insulin Glargine,Hum.rec.anlog [Lantus] 100 unit SQ DAILY 09/20/18 Mirabegron [Myrbetriq] 25 mg PO DAILY 09/20/18 Pantoprazole Sodium [Protonix] 40 mg PO DAILY 09/20/18 Pramipexole Dihydrochloride [Mirapex -] 0.25 mg PO BID 09/20/18 Azelastine HCl 137 mcg NS BID 09/22/18 Levocetirizine Dihydrochloride [Xyzal] 5 mg PO DAILY 09/22/18 Ondansetron HCl [Zofran] 8 mg PO Q8H PRN 09/22/18 Paroxetine HCl [Paxil] 40 mg PO DAILY 09/22/18 Polyethylene Glycol 3350 [Miralax (For Daily Use) -] 17 gm PO BID 09/22/18 Clotrimazole 15 gm TP BID 03/07/19 Doxepin HCl 50 mg PO DAILY 03/07/19 Dulaglutide [Trulicity] 1.5 mg SQ WEEKLY 03/07/19 Gemfibrozil 600 mg PO BID 03/07/19 Hydrocodone/Acetaminophen [[place] 5-325 Tablet] 1 each PO PRN 03/07/19 Insulin Glargine,Hum.rec.anlog [[place] Max Solostar] 300 unit SQ HS 03/07/19 Insulin Regular, Human [Humulin R U-500 Kwikpen] 500 unit SQ TID 03/07/19 Ipratropium/Albuterol Sulfate [Iprat-Albut 0.5-3(2.5) mg/3 ml] 3 ml IH PRN 03/07 Loperamide HCl [Imodium -] 2 mg PO DAILY PRN 03/07/19 Meclizine HCl 25 mg PO HS 03/07/19 Nystatin [Nyamyc] 60 gm TP BID 03/07/19 Rosuvastatin Calcium [Crestor] 20 mg PO HS 03/07/19 Review of Systems - Review of Systems Constitutional: reports: Weakness Eyes: reports: No Symptoms HENT: reports: No Symptoms Neck: reports: No Symptoms Cardiovascular: reports: Chest Pain Respiratory: reports: SOB Gastrointestinal: reports: No Symptoms Genitourinary: reports: No Symptoms Breasts: reports: No Symptoms Reported Musculoskeletal: reports: No Symptoms Integumentary: reports: No Symptoms Neurological: reports: Weakness Endocrine: reports: No Symptoms Hematology/Lymphatic: reports: No Symptoms Psychiatric: reports: No Symptoms Physical Examination Vital Signs: Vital Signs Temperature 97.1 F L 03/07/19 21:05 Pulse Rate 76 03/08/19 03:10 Respiratory Rate 19 03/08/19 03:10 Blood Pressure 125/67 03/08/19 03:10 O2 Sat by Pulse Oximetry (%) 99 03/08/19 03:10 Constitutional: Yes: Well Nourished, No Distress, Calm Cardiovascular: Yes: Regular Rate and Rhythm Respiratory: Yes: Regular Gastrointestinal: Yes: Normal Bowel Sounds, Soft, Abdomen, Obese Renal/: Yes: [place] Present Musculoskeletal: Yes: WNL Extremities: Yes: WNL Edema: No Peripheral Pulses WNL: Yes Neurological: Yes: Alert, Oriented Psychiatric: Yes: Alert, Oriented Labs: CBC, BMP 03/08/19 00:59 03/08/19 05:21 Imaging - Results Chest X-ray: Report Reviewed Cat Scan: Report Reviewed Ultrasound: Report Reviewed Problem List - Problems (1) Pneumonia Assessment/Plan: -CXR LLL infiltrate -mild leukocytosis -ID consult -Start IV abx Problems reviewed: Yes Code(s): J18.9 - PNEUMONIA, UNSPECIFIED ORGANISM (2) EBENEZER (acute kidney injury) Assessment/Plan: -Nephrology consult -IV NS @ 150 cc/hr -U/S renal- unremarkable -monitor trend -Looking at home med list, polypharmacy is an issue - pending -UA + protein+ +2 blood Problems reviewed: Yes Code(s): N17.9 - ACUTE KIDNEY FAILURE, UNSPECIFIED (3) Atypical chest pain Assessment/Plan: -EKG unremarkable -Trops x 3 negative -Likely 2/2 to pneumonia Problems reviewed: Yes Code(s): R07.89 - OTHER CHEST PAIN (4) DM Diabetes mellitus type 2 Assessment/Plan: -ISS -Check A1c -BGM AC HS -Diabetic renal diet for now -Endocrine consult Problems reviewed: Yes Code(s): E11.9 - TYPE 2 DIABETES MELLITUS WITHOUT COMPLICATIONS (5) Dehydration Assessment/Plan: Continue IVF -Monitor Cr trend Problems reviewed: Yes Code(s): E86.0 - DEHYDRATION (6) Klinefelter syndrome Problems reviewed: Yes Code(s): Q98.4 - KLINEFELTER SYNDROME, UNSPECIFIED (7) Polycythemia vera Problems reviewed: Yes Code(s): D45 - POLYCYTHEMIA VERA Assessment/Plan see problem list Spoke to brother, who is next of Kin. Psych has been consulted to determine if pt deems capacity to make healthcare decisions. Brother would like pt to be transferred to a different facility, closer to his family in [place].
[2019-03-08] MEDS ORDERED: AZITHROMYCIN IVPB 500 MG/250 ML BAG IVPB ONE ×2 (10:31→13:16)
[2019-03-08] MEDS ORDERED: ACETAMINOPHEN 325 MG TABLET (FP) PO PRN (10:44)
--- NOTE | 2019-03-08 11:19 | CONSULT ---
Consult Consult Specialty:: Nephrology Reason for Consultation:: EBENEZER - History of Present Illness Chief Complaint: chest pain History of Present Illness: Pt is a 58 year old male with pmhx of polycythemia (gets phlebotomy), HTN, DM and HLD who presents to the ER with chest pain. He lives in [facility]. 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 He was found to be in acute renal failure. He denies history of CKD. He denies family hx of kidney disease. He denies nsaid use. He denies abdominal pain. He denies dysuria or hematuria. He was on lisinopril and lasix. - History Source History Provided By: Patient, Medical Record - Past Medical History Cardio/Vascular: Yes: AFIB, HTN, Hyperlipdemia Psych: Yes: Schizophrenia Endocrine: Yes: Diabetes Mellitus Additional Medical History: Klinefelter's disease - Alcohol/Substance Use Hx Alcohol Use: No - Smoking History Smoking history: Never smoked Have you smoked in the past 12 months: No Home Medications - Allergies Allergies/Adverse Reactions: Allergies Allergy/AdvReac Type Severity Reaction Status Date / Time banana Allergy Unknown Verified 02/10/19 16:13 cephalexin Allergy Unknown Verified 02/10/19 16:13 chicken derived Allergy Unknown Verified 02/10/19 16:13 cinnamon Allergy Unknown Verified 02/10/19 16:13 codeine Allergy Unknown Verified 02/10/19 16:13 egg Allergy Unknown Verified 02/10/19 16:13 hydrochlorothiazide Allergy Unknown Verified 02/10/19 16:13 levofloxacin Allergy Unknown Verified 02/10/19 16:13 onion Allergy Unknown Verified 02/10/19 16:13 pepper (genus Capsicum) Allergy Unknown Verified 02/10/19 16:13 tomato Allergy Unknown Verified 09/22/18 11:22 - Home Medications Home Medications: Ambulatory Orders Apixaban [Eliquis] 5 mg PO BID 01/26/17 LORazepam [Lorazepam] 1 mg PO TID 01/26/17 Lisinopril [Prinivil] 20 mg PO DAILY 01/26/17 Aspirin [ASA -] 81 mg PO DAILY 01/27/17 Ergocalciferol (Vitamin D2) [Vitamin D2] 50,000 unit PO WEEKLY 01/27/17 Hydroxyurea [Hydrea 500Mg Capsule -] 500 mg PO BID #60 capsule 01/28/17 Furosemide [Lasix] 40 mg PO DAILY 02/10/17 Metoprolol Tartrate 25 mg PO BID 02/10/17 Nitroglycerin 0.4 mg SL ASDIR PRN 07/29/17 Mirtazapine [Remeron -] 15 mg PO HS 03/18/18 Multivitamins [Multivit ([facility])] 1 tab PO DAILY 03/18/18 Oxycodone HCl 5 mg PO PRN 03/18/18 Metformin HCl [Glucophage] 1,000 mg PO BID 09/17/18 Olanzapine 7.5 mg PO HS 09/17/18 Acetaminophen 650 mg PO Q8H PRN 09/20/18 Dronedarone HCl [Multaq] 400 mg PO BID 09/20/18 Gabapentin [Neurontin] 600 mg PO TID 09/20/18 Insulin Glargine,Hum.rec.anlog [Lantus] 100 unit SQ DAILY 09/20/18 Mirabegron [Myrbetriq] 25 mg PO DAILY 09/20/18 Pantoprazole Sodium [Protonix] 40 mg PO DAILY 09/20/18 Pramipexole Dihydrochloride [Mirapex -] 0.25 mg PO BID 09/20/18 Azelastine HCl 137 mcg NS BID 09/22/18 Levocetirizine Dihydrochloride [Xyzal] 5 mg PO DAILY 09/22/18 Ondansetron HCl [Zofran] 8 mg PO Q8H PRN 09/22/18 Paroxetine HCl [Paxil] 40 mg PO DAILY 09/22/18 Polyethylene Glycol 3350 [Miralax (For Daily Use) -] 17 gm PO BID 09/22/18 Clotrimazole 15 gm TP BID 03/07/19 Doxepin HCl 50 mg PO DAILY 03/07/19 Dulaglutide [Trulicity] 1.5 mg SQ WEEKLY 03/07/19 Gemfibrozil 600 mg PO BID 03/07/19 Hydrocodone/Acetaminophen [Oxford 5-325 Tablet] 1 each PO PRN 03/07/19 Insulin Glargine,Hum.rec.anlog [Toujeo Max Solostar] 300 unit SQ HS 03/07/19 Insulin Regular, Human [Humulin R U-500 Kwikpen] 500 unit SQ TID 03/07/19 Ipratropium/Albuterol Sulfate [Iprat-Albut 0.5-3(2.5) mg/3 ml] 3 ml IH PRN 03/07 Loperamide HCl [Imodium -] 2 mg PO DAILY PRN 03/07/19 Meclizine HCl 25 mg PO HS 03/07/19 Nystatin [Nyamyc] 60 gm TP BID 03/07/19 Rosuvastatin Calcium [Crestor] 20 mg PO HS 03/07/19 Family Medical History Family History: Denies Review of Systems - Review of Systems Constitutional: reports: Malaise Eyes: reports: No Symptoms HENT: reports: No Symptoms Neck: reports: No Symptoms Cardiovascular: reports: No Symptoms Respiratory: reports: No Symptoms Gastrointestinal: reports: No Symptoms Genitourinary: reports: No Symptoms Musculoskeletal: reports: No Symptoms Integumentary: reports: No Symptoms Neurological: reports: No Symptoms Endocrine: reports: No Symptoms Hematology/Lymphatic: reports: No Symptoms Psychiatric: reports: No Symptoms Physical Exam Vital Signs: Vital Signs Temperature 97.1 F L 03/07/19 21:05 Pulse Rate 76 03/08/19 03:10 Respiratory Rate 19 03/08/19 03:10 Blood Pressure 125/67 03/08/19 03:10 O2 Sat by Pulse Oximetry (%) 99 03/08/19 03:10 Constitutional: Yes: Calm Eyes: Yes: Conjunctiva Clear HENT: Yes: Atraumatic Neck: Yes: Supple Cardiovascular: Yes: S1, S2 Respiratory: Yes: CTA Bilaterally Gastrointestinal: Yes: Soft Renal/: Yes: Martinez Present Musculoskeletal: Yes: WNL Edema: No Neurological: Yes: Oriented Psychiatric: Yes: Oriented Labs: CBC, BMP 03/08/19 00:59 03/08/19 05:21 Imaging - Results Chest X-ray: Report Reviewed Problem List - Problems (1) EBENEZER (acute kidney injury) Code(s): N17.9 - ACUTE KIDNEY FAILURE, UNSPECIFIED (2) Pneumonia Code(s): J18.9 - PNEUMONIA, UNSPECIFIED ORGANISM (3) Atrial fibrillation Code(s): I48.91 - UNSPECIFIED ATRIAL FIBRILLATION Qualifiers: Atrial fibrillation type: paroxysmal Qualified Code(s): I48.0 - Paroxysmal atrial fibrillation (4) Atypical chest pain Code(s): R07.89 - OTHER CHEST PAIN (5) DM Diabetes mellitus Code(s): E11.9 - TYPE 2 DIABETES MELLITUS WITHOUT COMPLICATIONS Assessment/Plan Current Medications Generic Name Dose Route Start Last Admin Trade Name Mohamud PRN Reason Stop Dose Admin Acetaminophen 650 mg 03/08/19 10:44 Tylenol - PO Q4H PRN FEVER Enoxaparin Sodium 30 mg 03/09/19 10:00 Lovenox - SQ DAILY ANCA Sodium Chloride 1,000 mls @ 150 mls/hr 03/08/19 02:45 03/08/19 05:15 Normal Saline - IV 150 mls/hr ASDIR ANCA Administration Azithromycin 500 mg in 250 mls @ 250 mls/hr 03/08/19 10:31 Zithromax 500mg Ivpb (Pre-Docked) IVPB 03/08/19 11:30 ONCE ONE Azithromycin 250 mg/ Dextrose 250 mls @ 250 mls/hr 03/09/19 10:00 IVPB DAILY ANCA Sodium Chloride 1,000 mls @ 125 mls/hr 03/08/19 11:15 Normal Saline - IV ASDIR ANCA Insulin Aspart 1 vial 03/08/19 11:00 Novolog Vial Sliding Scale - SQ TIDAC [facility] Protocol Impression 1. EBENEZER 2. chest pain 3. dm 4. htn 5. PNA 6. 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
[2019-03-08] MEDS ORDERED: SODIUM ZIRCONIUM CYCLOSILICATE (LOKELMA) 5 GM PACKET PO ONE (11:24)
[2019-03-08] MEDS ORDERED: INSULIN (NOVOLOG) ASPART 100 UNITS/ML 10ML VIAL ONE (13:17)
[2019-03-08] MEDS: INSULIN SLIDING SCALE (NOVOLOG) 1 VIAL SQ SCH ×2 (13:19→17:22)
[2019-03-08] MEDS: SODIUM CHLORIDE 1,000 ML IV SCH (13:20)
[2019-03-08] MEDS ORDERED: LORazepam 0.5 MG TABLET PO PRN (13:41)
[2019-03-08] MEDS ORDERED: ALBUTEROL SO4 2.5/IPRATROPIUM 0.5 INH SOL 3 ML VIAL.NEB. NEB PRN (13:45)
[2019-03-08] MEDS ORDERED: LORazepam 0.5 MG TABLET ONE ×2 (15:35→22:31)
[2019-03-08] MEDS: LORazepam 0.5 MG TABLET PO SCH ×2 (15:38→22:38)
--- NOTE | 2019-03-08 16:57 | PN ---
Progress Note (short form) - Note Progress Note: ID CONSULT DICTATED R/O NH ACQUIRED PNEUMONIA ACUTE RENAL FAILURE CEPHALOSPORIN ALLERGY PENDING C/S EMPIRIC ZITHROMAX/ AZTREONAM
--- NOTE | 2019-03-08 17:31 | CONS ---
INFECTIOUS DISEASE CONSULTATION DATE OF CONSULTATION: DATE OF DICTATION: 03/08/2019 HISTORY: The patient is a 58-year-old male who is evaluated for possible half-way-acquired pneumonia. History was obtained from the chart as he cannot give a reliable history secondary to his mental illness. The patient is a half-way resident. He suffers from schizophrenia. He was admitted through the emergency room on March 08, 2019, after complaining of chest pain and dyspnea. At the present time, he reports that he passed out and sustained head trauma, although this could not be verified. He reports not feeling well for the past week. He states that he has been having a dry cough. Denies any purulent sputum or hemoptysis. Denies any known ill contacts. He denies tobacco use history. States he received influenza vaccine and pneumococcal vaccine. No recent travel. Denies recent hospitalizations. PAST MEDICAL HISTORY: Positive for polycythemia vera, [id number] diabetes mellitus, hypertension, hyperlipidemia, schizophrenia. ALLERGIES: CEPHALEXIN and CODEINE. Patient is unable to tell me the nature of the PENICILLIN allergy. MEDICATIONS: Include aspirin, Zithromax, Hydrea, metoprolol, Remeron, Zyprexa, Protonix, Crestor. SOCIAL HISTORY: As per HPI. LABORATORY DATA: White count 11.0, neutrophils 77, lymphocytes 11, monocytes 9, hematocrit 37.1, platelet count 299, creatinine 8.5. Urinalysis, 5 white cells. Chest x-ray shows increased markings at the bases bilaterally. PHYSICAL EXAMINATION: General: He is awake. He is obese. He is in no acute respiratory distress. Vital Signs: Temperature 97.3, blood pressure 106/50, pulse 84 regular, respirations 18 per minute. HEENT: Sclerae anicteric. No evidence of head trauma. Oropharynx negative. Neck: Supple. No palpable nodes. Heart: Sounds S1, S2. Lungs: Rales at the bases bilaterally. Abdomen: Obese, protuberant, nontender. Extremities: Negative for edema. Genitourinary: There is a Martinez catheter in place with clear urine. There is bleeding around the urethral meatus. IMPRESSION: 1. Rule out half-way-acquired pneumonia. 2. Acute renal failure. 3. CEPHALOSPORIN allergy. 4. History of schizophrenia. PLAN: Await sepsis workup. Empiric antibiotic coverage in this CEPHALOSPORIN-allergic patient with Zithromax and aztreonam. Renal workup. Thank you for the kind referral. KEYLA WILKES M.D. JAIRON/[id number]
[2019-03-08] MEDS ORDERED: AZTREONAM 1 GM in DEXTROSE 5%-WATER - 50 ML IVPB SCH (18:00)
[2019-03-08] MEDS: AZTREONAM 0.5 GM in DEXTROSE 5%-WATER - 50 ML IVPB SCH (18:10)
[2019-03-08] MEDS ORDERED: ROSUVASTATIN CA 20 MG TABLET (FP) PO SCH (22:00)
[2019-03-08] MEDS ORDERED: OLANZapine 7.5 MG TABLET PO SCH ×2 (22:00)
[2019-03-08 22:17] LABS: POTASSIUM 4.8 mmol/L (3.5-5.1)
[2019-03-08] MEDS ORDERED: MIRTAZAPINE 15 MG TABLET (FP) ONE (22:31)
[2019-03-08] MEDS ORDERED: HEPARIN NA (PORCINE) 5,000 UNITS/ML 1ML VIAL ONE (22:32)
[2019-03-08] MEDS: MIRTAZAPINE 15 MG TABLET (FP) PO SCH (22:39)
[2019-03-08] MEDS: HEPARIN NA (PORCINE) 5,000 UNITS/ML 1ML VIAL SQ SCH (22:39)
[2019-03-08] MEDS: POLYETHYLENE GLYCOL 3350 119 GM BTL PO SCH (22:39)
[2019-03-08] MEDS: METOPROLOL TARTRATE 25 MG TABLET (FP) PO SCH (22:41)
[2019-03-08] MEDS: DRONEDARONE HCL 400 MG TAB (FP) PO SCH (23:10)
[2019-03-08] MEDS: ROSUVASTATIN CA 10 MG TABLET (FP) PO SCH (23:10)
[2019-03-08] MEDS: HYDROXYUREA 500 MG CAPSULE PO SCH (23:10)
[2019-03-08] MEDS: NYSTATIN POWDER 100,000 UNITS/GM - 15 GM TOPICAL POWDER TP SCH (23:11)
[2019-03-09] MEDS: OLANZAPINE 2.5 MG, OLANZAPINE 5 MG PO SCH ×2 (00:08→22:11)
[2019-03-09] MEDS: AZTREONAM 0.5 GM in DEXTROSE 5%-WATER - 50 ML IVPB SCH ×3 (05:13→22:13)
[2019-03-09] MEDS ORDERED: LORazepam 0.5 MG TABLET ONE ×2 (06:24→14:07)
[2019-03-09] MEDS: LORazepam 0.5 MG TABLET PO SCH ×3 (06:38→22:10)
[2019-03-09 07:07] LABS: BASO % 0.9 % (0-2.0); EOS % 1.3 % (0-4.5); HEMATOCRIT 33.5 % (35.4-49); HEMOGLOBIN 11.3 GM/dL (11.7-16.9); LYMPH % 23.3 % (8-40); MCH 33.7 pg (25.7-33.7); MCHC 33.7 g/dl (32.0-35.9); MEAN CELL VOLUME 99.8 fl (80-96); MEAN PLT VOLUME 8.1 fl (7.5-11.1); MONO % 11.3 % (3.8-10.2); NEUT % 63.2 % (42.8-82.8); PLATELET COUNT 244 K/MM3 (134-434); RBC 3.35 M/mm3 (4.00-5.60); RDW 14.8 % (11.9-15.9); WHITE BLOOD COUNT 7.3 K/mm3 (4.0-10.0)
[2019-03-09 07:42] LABS: ALBUMIN 3.5 g/dl (3.4-5.0); BILIRUBIN,TOTAL 0.4 mg/dL (0.2-1); BLOOD UREA NITROGEN 101.9 mg/dL (7-18); CREATININE 6.6 mg/dL (0.55-1.3); PHOSPHOROUS 5.2 mg/dL (2.5-4.9); POTASSIUM 4.3 mmol/L (3.5-5.1); TOT PROT 7.7 g/dl (6.4-8.2)
[2019-03-09] MEDS: INSULIN SLIDING SCALE (NOVOLOG) 1 VIAL SQ SCH ×3 (08:30→18:19)
[2019-03-09] MEDS: METOPROLOL TARTRATE 25 MG TABLET (FP) PO SCH ×2 (09:24→22:10)
[2019-03-09] MEDS: HYDROXYUREA 500 MG CAPSULE PO SCH ×2 (09:24→22:12)
[2019-03-09] MEDS: ASPIRIN 81 MG CHEWABLE TABLETS PO SCH (09:24)
[2019-03-09] MEDS: POLYETHYLENE GLYCOL 3350 119 GM BTL PO SCH ×2 (09:24→22:13)
[2019-03-09] MEDS: HEPARIN NA (PORCINE) 5,000 UNITS/ML 1ML VIAL SQ SCH ×2 (09:24→22:12)
[2019-03-09] MEDS: DRONEDARONE HCL 400 MG TAB (FP) PO SCH ×2 (09:25→22:11)
[2019-03-09] MEDS: NYSTATIN POWDER 100,000 UNITS/GM - 15 GM TOPICAL POWDER TP SCH ×2 (09:25→22:14)
[2019-03-09] MEDS: PANTOPRAZOLE 40 MG TABLET (FP) PO SCH (09:25)
[2019-03-09] MEDS: PARoxetine HCL 20 MG TABLET PO SCH (09:25)
[2019-03-09] MEDS ORDERED: ENOXAPARIN NA (PORCINE) 30 MG/0.3 ML DISP.SYRIN SQ SCH (10:00)
--- NOTE | 2019-03-09 10:41 | PN ---
Progress Note, Physician Chief Complaint: EBENEZER Dehydration klinefelter syndrome Pneumonia History of Present Illness: NAD pulled out his north catheter yesterday Cr improving AxOx2- forgetful, unsure what is his baseline mental status - Current Medication List Current Medications: Active Medications Acetaminophen (Tylenol -) 650 mg PO Q4H PRN PRN Reason: FEVER Albuterol/Ipratropium (Duoneb -) 1 amp NEB Q4H PRN PRN Reason: SHORTNESS OF BREATH Aspirin (Asa -) 81 mg PO DAILY [facility] Last Admin: 03/09/19 09:24 Dose: 81 mg Dronedarone (Multaq -) 400 mg PO BID [facility] Last Admin: 03/09/19 09:25 Dose: 400 mg Heparin Sodium (Porcine) (Heparin -) 5,000 unit SQ BID [facility] Last Admin: 03/09/19 09:24 Dose: Not Given Hydroxyurea (Hydrea -) 500 mg PO BID [facility] Last Admin: 03/09/19 09:24 Dose: 500 mg Azithromycin 250 mg/ Dextrose 250 mls @ 250 mls/hr IVPB DAILY [facility] Sodium Chloride (Normal Saline -) 1,000 mls @ 125 mls/hr IV ASDIR [facility] Last Admin: 03/08/19 13:20 Dose: 125 mls/hr Aztreonam 0.5 gm/ Dextrose 50 mls @ 100 mls/hr IVPB Q12H [facility]; Protocol Last Admin: 03/09/19 05:13 Dose: 100 mls/hr Insulin Aspart (Novolog Vial Sliding Scale -) 1 vial SQ TIDAC [facility]; Protocol Last Admin: 03/09/19 08:30 Dose: Not Given Lorazepam (Ativan -) 1 mg PO TID [facility] Last Admin: 03/09/19 06:38 Dose: 1 mg Metoprolol Tartrate (Lopressor -) 25 mg PO BID [facility] Last Admin: 03/09/19 09:24 Dose: 25 mg Mirtazapine (Remeron -) 15 mg PO HS [facility] Last Admin: 03/08/19 22:39 Dose: 15 mg Nystatin (Nystop Powder -) 1 applic TP BID [facility] Last Admin: 03/09/19 09:25 Dose: 1 applic Olanzapine 2.5 mg/ Olanzapine (5 mg) 7.5 mg PO HS [facility] Last Admin: 03/09/19 00:08 Dose: 7.5 mg Pantoprazole Sodium (Protonix -) 40 mg PO DAILY [facility] Last Admin: 03/09/19 09:25 Dose: 40 mg Paroxetine HCl (Paxil -) 40 mg PO DAILY [facility] Last Admin: 03/09/19 09:25 Dose: 40 mg Polyethylene Glycol (Miralax (For Daily Use) -) 17 gm PO BID [facility] Last Admin: 03/09/19 09:24 Dose: 17 gm Rosuvastatin Calcium (Crestor -) 10 mg PO HS [facility] Last Admin: 03/08/19 23:10 Dose: 10 mg - Objective Vital Signs: Vital Signs Temperature 97.9 F 03/09/19 10:03 Pulse Rate 81 03/09/19 10:03 Respiratory Rate 18 03/09/19 10:03 Blood Pressure 103/57 L 03/09/19 10:03 O2 Sat by Pulse Oximetry (%) 95 03/09/19 10:03 Constitutional: Yes: Well Nourished, No Distress, Calm Cardiovascular: Yes: Regular Rate and Rhythm Respiratory: Yes: Regular Gastrointestinal: Yes: Normal Bowel Sounds, Soft, Abdomen, Obese Genitourinary: Yes: WNL Musculoskeletal: Yes: Muscle Weakness Extremities: Yes: WNL Edema: No Peripheral Pulses WNL: Yes Neurological: Yes: Alert Psychiatric: Yes: Alert Labs: CBC, BMP 03/09/19 06:50 03/09/19 06:50 INR, PTT INR 1.25 (0.83-1.09) H 03/08/19 00:59 Problem List - Problems (1) Pneumonia Assessment/Plan: -CXR LLL infiltrate -leukocytosis improved -ID consult -IV abx Problems reviewed: Yes Code(s): J18.9 - PNEUMONIA, UNSPECIFIED ORGANISM (2) EBENEZER (acute kidney injury) Assessment/Plan: -Nephrology consult -IV NS @ 125 cc/hr -U/S renal- unremarkable -monitor trend -Looking at home med list, polypharmacy is an issue -UC negative -BC pending -UA + protein+ +2 blood Problems reviewed: Yes Code(s): N17.9 - ACUTE KIDNEY FAILURE, UNSPECIFIED (3) Atypical chest pain Assessment/Plan: -EKG unremarkable -Trops x 3 negative -Likely 2/2 to pneumonia Problems reviewed: Yes Code(s): R07.89 - OTHER CHEST PAIN (4) DM Diabetes mellitus type 2 Assessment/Plan: -ISS -Check A1c -BGM AC HS -Diabetic renal diet for now -Endocrine consult -Start Levemir 15 U AM---> will adjust if needed Problems reviewed: Yes Code(s): E11.9 - TYPE 2 DIABETES MELLITUS WITHOUT COMPLICATIONS (5) Dehydration Assessment/Plan: Continue IVF -Monitor Cr trend Problems reviewed: Yes Code(s): E86.0 - DEHYDRATION (6) Klinefelter syndrome Problems reviewed: Yes Code(s): Q98.4 - KLINEFELTER SYNDROME, UNSPECIFIED (7) Polycythemia vera Problems reviewed: Yes Code(s): D45 - POLYCYTHEMIA VERA
[2019-03-09] MEDS: SODIUM CHLORIDE 1,000 ML IV SCH ×3 (10:52→11:43)
--- NOTE | 2019-03-09 11:18 | PN ---
Progress Note, Physician History of Present Illness: Pt seen and examined at bedside. He keeps pulling his IV. He denies shortness of breath. - Current Medication List Current Medications: Active Medications Acetaminophen (Tylenol -) 650 mg PO Q4H PRN PRN Reason: FEVER Albuterol/Ipratropium (Duoneb -) 1 amp NEB Q4H PRN PRN Reason: SHORTNESS OF BREATH Aspirin (Asa -) 81 mg PO DAILY [facility] Last Admin: 03/09/19 09:24 Dose: 81 mg Dronedarone (Multaq -) 400 mg PO BID [facility] Last Admin: 03/09/19 09:25 Dose: 400 mg Heparin Sodium (Porcine) (Heparin -) 5,000 unit SQ BID [facility] Last Admin: 03/09/19 09:24 Dose: Not Given Hydroxyurea (Hydrea -) 500 mg PO BID [facility] Last Admin: 03/09/19 09:24 Dose: 500 mg Azithromycin 250 mg/ Dextrose 250 mls @ 250 mls/hr IVPB DAILY [facility] Sodium Chloride (Normal Saline -) 1,000 mls @ 125 mls/hr IV ASDIR [facility] Last Admin: 03/09/19 10:52 Dose: 125 mls/hr Aztreonam 0.5 gm/ Dextrose 50 mls @ 100 mls/hr IVPB Q12H [facility]; Protocol Last Admin: 03/09/19 05:13 Dose: 100 mls/hr Insulin Aspart (Novolog Vial Sliding Scale -) 1 vial SQ TIDAC [facility]; Protocol Last Admin: 03/09/19 08:30 Dose: Not Given Lorazepam (Ativan -) 1 mg PO TID [facility] Last Admin: 03/09/19 06:38 Dose: 1 mg Metoprolol Tartrate (Lopressor -) 25 mg PO BID [facility] Last Admin: 03/09/19 09:24 Dose: 25 mg Mirtazapine (Remeron -) 15 mg PO HS [facility] Last Admin: 03/08/19 22:39 Dose: 15 mg Nystatin (Nystop Powder -) 1 applic TP BID [facility] Last Admin: 03/09/19 09:25 Dose: 1 applic Olanzapine 2.5 mg/ Olanzapine (5 mg) 7.5 mg PO HS [facility] Last Admin: 03/09/19 00:08 Dose: 7.5 mg Pantoprazole Sodium (Protonix -) 40 mg PO DAILY [facility] Last Admin: 03/09/19 09:25 Dose: 40 mg Paroxetine HCl (Paxil -) 40 mg PO DAILY [facility] Last Admin: 03/09/19 09:25 Dose: 40 mg Polyethylene Glycol (Miralax (For Daily Use) -) 17 gm PO BID [facility] Last Admin: 03/09/19 09:24 Dose: 17 gm Rosuvastatin Calcium (Crestor -) 10 mg PO HS [facility] Last Admin: 03/08/19 23:10 Dose: 10 mg - Objective Vital Signs: Vital Signs Temperature 97.9 F 03/09/19 10:03 Pulse Rate 81 03/09/19 10:03 Respiratory Rate 18 03/09/19 10:03 Blood Pressure 103/57 L 03/09/19 10:03 O2 Sat by Pulse Oximetry (%) 95 03/09/19 10:03 Constitutional: Yes: Calm Eyes: Yes: Conjunctiva Clear HENT: Yes: Atraumatic Neck: Yes: Supple Cardiovascular: Yes: S1, S2 Respiratory: Yes: CTA Bilaterally Gastrointestinal: Yes: Soft Genitourinary: Yes: WNL Musculoskeletal: Yes: WNL Edema: No Neurological: Yes: Oriented Psychiatric: Yes: Oriented Labs: CBC, BMP 03/09/19 06:50 03/09/19 06:50 INR, PTT INR 1.25 (0.83-1.09) H 03/08/19 00:59 Problem List - Problems (1) EBENEZER (acute kidney injury) Code(s): N17.9 - ACUTE KIDNEY FAILURE, UNSPECIFIED (2) Pneumonia Code(s): J18.9 - PNEUMONIA, UNSPECIFIED ORGANISM (3) Atrial fibrillation Code(s): I48.91 - UNSPECIFIED ATRIAL FIBRILLATION Qualifiers: Atrial fibrillation type: paroxysmal Qualified Code(s): I48.0 - Paroxysmal atrial fibrillation (4) Atypical chest pain Code(s): R07.89 - OTHER CHEST PAIN (5) DM Diabetes mellitus Code(s): E11.9 - TYPE 2 DIABETES MELLITUS WITHOUT COMPLICATIONS Assessment/Plan Current Medications Generic Name Dose Route Start Last Admin Trade Name Freq PRN Reason Stop Dose Admin Acetaminophen 650 mg 03/08/19 10:44 Tylenol - PO Q4H PRN FEVER Albuterol/Ipratropium 1 amp 03/08/19 13:45 Duoneb - NEB Q4H PRN SHORTNESS OF BREATH Aspirin 81 mg 03/09/19 10:00 03/09/19 09:24 Asa - PO 81 mg DAILY ANCA Administration Dronedarone 400 mg 03/08/19 22:00 03/09/19 09:25 Multaq - PO 400 mg BID ANCA Administration Heparin Sodium (Porcine) 5,000 unit 03/08/19 22:00 03/09/19 09:24 Heparin - SQ Not Given BID ANCA Hydroxyurea 500 mg 03/08/19 22:00 03/09/19 09:24 Hydrea - PO 500 mg BID ANCA Administration Azithromycin 250 mg/ Dextrose 250 mls @ 250 mls/hr 03/09/19 10:00 IVPB DAILY ANCA Sodium Chloride 1,000 mls @ 125 mls/hr 03/08/19 11:15 03/09/19 10:52 Normal Saline - IV 125 mls/hr ASDIR ANCA Administration Aztreonam 0.5 gm/ Dextrose 50 mls @ 100 mls/hr 03/08/19 17:00 03/09/19 05:13 IVPB 100 mls/hr Q12H ANCA Administration Protocol Insulin Aspart 1 vial 03/08/19 11:00 03/09/19 08:30 Novolog Vial Sliding Scale - SQ Not Given TIDAC [facility] Protocol Lorazepam 1 mg 03/08/19 14:30 03/09/19 06:38 Ativan - PO 1 mg TID ANCA Administration Metoprolol Tartrate 25 mg 03/08/19 22:00 03/09/19 09:24 Lopressor - PO 25 mg BID ANCA Administration Mirtazapine 15 mg 03/08/19 22:00 03/08/19 22:39 Remeron - PO 15 mg HS ANCA Administration Nystatin 1 applic 03/08/19 22:00 03/09/19 09:25 Nystop Powder - TP 1 applic BID ANCA Administration Olanzapine 2.5 mg/ Olanzapine 7.5 mg 03/08/19 22:00 03/09/19 00:08 5 mg PO 7.5 mg HS ANCA Administration Pantoprazole Sodium 40 mg 03/09/19 10:00 03/09/19 09:25 Protonix - PO 40 mg DAILY ANCA Administration Paroxetine HCl 40 mg 03/09/19 10:00 03/09/19 09:25 Paxil - PO 40 mg DAILY ANCA Administration Polyethylene Glycol 17 gm 03/08/19 22:00 03/09/19 09:24 Miralax (For Daily Use) - PO 17 gm BID ANCA Administration Rosuvastatin Calcium 10 mg 03/08/19 22:00 03/08/19 23:10 Crestor - PO 10 mg HS ANCA Administration Impression 1. EBENEZER 2. chest pain 3. dm 4. htn 5. PNA 6. hyperkalemia Plan - renal function is improving - cont fluids - no indication for HD at this point - follow serologies - hold lasix and hold norman Dr Reynolds
[2019-03-09] MEDS: AZITHROMYCIN IVPB 250 MG in DEXTROSE 5%-WATER - 250 ML IVPB SCH (11:29)
--- NOTE | 2019-03-09 14:49 | PN ---
Progress Note (short form) - Note Progress Note: no complaints no cough no chest pain Vital Signs Period Temp Pulse Resp BP Sys/Guallpa Pulse Ox Last 24 Hr 97.9 F-98.2 F 78-96 18-18 103-122/50-58 94-99 cor-rrr lungs clear abd soft,nt ext no edema CBC, BMP 03/09/19 06:50 03/09/19 06:50 Microbiology 03/08/19 04:40 Urine - Urine Clean Catch Urine Culture - Final NO GROWTH OBTAINED a/p pneumonia- continue azactam and zithromax, f/u cultures cephalexin allergy acute renal failure - improving
[2019-03-09] MEDS ORDERED: AZTREONAM 1 GM VIAL (RESTRICTED TO ID) ONE (21:57)
[2019-03-09] MEDS ORDERED: DEXTROSE 5%-WATER - 50 ML IVPB ONE (21:57)
[2019-03-09] MEDS ORDERED: INSULIN SLIDING SCALE (NOVOLOG) 1 VIAL SQ SCH (22:00)
[2019-03-09] MEDS: ROSUVASTATIN CA 10 MG TABLET (FP) PO SCH (22:09)
[2019-03-09] MEDS: MIRTAZAPINE 15 MG TABLET (FP) PO SCH (22:10)
[2019-03-10] MEDS: INSULIN SLIDING SCALE (NOVOLOG) 1 VIAL SQ SCH ×4 (06:37→22:43)
[2019-03-10] MEDS: LORazepam 0.5 MG TABLET PO SCH ×3 (06:38→22:26)
--- NOTE | 2019-03-10 06:51 | CONSULT ---
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 - Past Medical History Cardio/Vascular: Yes: AFIB, HTN, Hyperlipdemia Psych: Yes: Schizophrenia Endocrine: Yes: Diabetes Mellitus Additional Medical History: Klinefelter's disease - Alcohol/Substance Use Hx Alcohol Use: No - Smoking History Smoking history: Never smoked Have you smoked in the past 12 months: No Home Medications - Allergies Allergies/Adverse Reactions: Allergies Allergy/AdvReac Type Severity Reaction Status Date / Time banana Allergy Unknown Verified 02/10/19 16:13 cephalexin Allergy Unknown Verified 02/10/19 16:13 chicken derived Allergy Unknown Verified 02/10/19 16:13 cinnamon Allergy Unknown Verified 02/10/19 16:13 codeine Allergy Unknown Verified 02/10/19 16:13 egg Allergy Unknown Verified 02/10/19 16:13 hydrochlorothiazide Allergy Unknown Verified 02/10/19 16:13 levofloxacin Allergy Unknown Verified 02/10/19 16:13 onion Allergy Unknown Verified 02/10/19 16:13 pepper (genus Capsicum) Allergy Unknown Verified 02/10/19 16:13 tomato Allergy Unknown Verified 09/22/18 11:22 - Home Medications Home Medications: Ambulatory Orders Apixaban [Eliquis] 5 mg PO BID 01/26/17 LORazepam [Lorazepam] 1 mg PO TID 01/26/17 Lisinopril [Prinivil] 20 mg PO DAILY 01/26/17 Aspirin [ASA -] 81 mg PO DAILY 01/27/17 Ergocalciferol (Vitamin D2) [Vitamin D2] 50,000 unit PO WEEKLY 01/27/17 Hydroxyurea [Hydrea 500Mg Capsule -] 500 mg PO BID #60 capsule 01/28/17 Furosemide [Lasix] 40 mg PO DAILY 02/10/17 Metoprolol Tartrate 25 mg PO BID 02/10/17 Nitroglycerin 0.4 mg SL ASDIR PRN 07/29/17 Mirtazapine [Remeron -] 15 mg PO HS 03/18/18 Multivitamins [Multivit ([facility] Formulary)] 1 tab PO DAILY 03/18/18 Oxycodone HCl 5 mg PO PRN 03/18/18 Metformin HCl [Glucophage] 1,000 mg PO BID 09/17/18 Olanzapine 7.5 mg PO HS 09/17/18 Acetaminophen 650 mg PO Q8H PRN 09/20/18 Dronedarone HCl [Multaq] 400 mg PO BID 09/20/18 Gabapentin [Neurontin] 600 mg PO TID 09/20/18 Insulin Glargine,Hum.rec.anlog [Lantus] 100 unit SQ DAILY 09/20/18 Mirabegron [Myrbetriq] 25 mg PO DAILY 09/20/18 Pantoprazole Sodium [Protonix] 40 mg PO DAILY 09/20/18 Pramipexole Dihydrochloride [Mirapex -] 0.25 mg PO BID 09/20/18 Azelastine HCl 137 mcg NS BID 09/22/18 Levocetirizine Dihydrochloride [Xyzal] 5 mg PO DAILY 09/22/18 Ondansetron HCl [Zofran] 8 mg PO Q8H PRN 09/22/18 Paroxetine HCl [Paxil] 40 mg PO DAILY 09/22/18 Polyethylene Glycol 3350 [Miralax (For Daily Use) -] 17 gm PO BID 09/22/18 Clotrimazole 15 gm TP BID 03/07/19 Doxepin HCl 50 mg PO DAILY 03/07/19 Dulaglutide [Trulicity] 1.5 mg SQ WEEKLY 03/07/19 Gemfibrozil 600 mg PO BID 03/07/19 Hydrocodone/Acetaminophen [[place] 5-325 Tablet] 1 each PO PRN 03/07/19 Insulin Glargine,Hum.rec.anlog [Touje[place] Max Solostar] 300 unit SQ HS 03/07/19 Insulin Regular, Human [Humulin R U-500 Kwikpen] 500 unit SQ TID 03/07/19 Ipratropium/Albuterol Sulfate [Iprat-Albut 0.5-3(2.5) mg/3 ml] 3 ml IH PRN 03/07 Loperamide HCl [Imodium -] 2 mg PO DAILY PRN 03/07/19 Meclizine HCl 25 mg PO HS 03/07/19 Nystatin [Nyamyc] 60 gm TP BID 03/07/19 Rosuvastatin Calcium [Crestor] 20 mg PO HS 03/07/19 Review of Systems - Review of Systems Constitutional: reports: Lethargy Eyes: reports: No Symptoms HENT: reports: No Symptoms Neck: reports: No Symptoms Cardiovascular: reports: Edema, Shortness of Breath Respiratory: reports: Exercise Intolerance, SOB on Exertion Gastrointestinal: reports: Bloating Genitourinary: reports: Frequency Breasts: reports: No Symptoms Reported Musculoskeletal: reports: Joint Swelling, Muscle Pain, Muscle Cramps Endocrine: reports: Unexplained Weight Gain Physical Exam Vital Signs: Vital Signs Temperature 97.4 F L 03/10/19 06:28 Pulse Rate 67 03/10/19 06:28 Respiratory Rate 20 03/10/19 06:28 Blood Pressure 103/57 L 03/10/19 06:28 O2 Sat by Pulse Oximetry (%) 97 03/09/19 21:00 Constitutional: Yes: Anxious Eyes: Yes: EOM Intact HENT: Yes: Normocephalic Neck: Yes: Trachea Midline Cardiovascular: Yes: Regular Rate and Rhythm Respiratory: Yes: CTA Bilaterally Gastrointestinal: Yes: Normal Bowel Sounds ...Rectal Exam: Yes: Deferred Renal/: Yes: Polyuria Breast(s): Yes: WNL Musculoskeletal: Yes: WNL Extremities: Yes: WNL Edema: No Neurological: Yes: Alert, Confusion, Weakness Labs: CBC, BMP 03/09/19 06:50 03/09/19 06:50 Assessment/Plan Current Active Problems DMT2 ckd, nephropathy hld,ashd cad EBENEZER (acute kidney injury) (Acute) Pneumonia (Acute) polycythemia Abnormal Lab Results 03/09/19 03/09/19 03/09/19 06:50 06:50 06:50 RBC 3.35 L Hgb 11.3 L Hct 33.5 L MCV 99.8 H Monocytes % 11.3 H Sodium 134 L BUN 101.9 H Creatinine 6.6 H Random Glucose 287 H Calcium 8.0 L Phosphorus 5.2 H AST 44 H Creatine Kinase 1244 H CK-MB (CK-2) 5.6 H Laboratory Results - last 24 hr 03/09/19 03/09/19 03/09/19 06:50 06:50 06:50 WBC 7.3 RBC 3.35 L Hgb 11.3 L Hct 33.5 L MCV 99.8 H MCH 33.7 MCHC 33.7 RDW 14.8 Plt Count 244 MPV 8.1 Absolute Neuts (auto) 4.6 Neutrophils % 63.2 Lymphocytes % 23.3 D Monocytes % 11.3 H Eosinophils % 1.3 D Basophils % 0.9 Nucleated RBC % 0 Sodium 134 L Potassium 4.3 Chloride 98 Carbon Dioxide 22 Anion Gap 15 BUN 101.9 H Creatinine 6.6 H Est GFR (CKD-EPI)AfAm 9.92 Est GFR (CKD-EPI)NonAf 8.56 POC Glucometer Random Glucose 287 H Calcium 8.0 L Phosphorus 5.2 H Magnesium 2.0 Total Bilirubin 0.4 AST 44 H ALT 50 Alkaline Phosphatase 93 Creatine Kinase 1244 H Creatine Kinase Index 0.4 CK-MB (CK-2) 5.6 H Total Protein 7.7 Albumin 3.5 Influenza A (Rapid) Influenza B (Rapid) 03/09/19 03/09/19 03/09/19 08:02 11:31 16:46 WBC RBC Hgb Hct MCV MCH MCHC RDW Plt Count MPV Absolute Neuts (auto) Neutrophils % Lymphocytes % Monocytes % Eosinophils % Basophils % Nucleated RBC % Sodium Potassium Chloride Carbon Dioxide Anion Gap BUN Creatinine Est GFR (CKD-EPI)AfAm Est GFR (CKD-EPI)NonAf POC Glucometer 560 462 Random Glucose Calcium Phosphorus Magnesium Total Bilirubin AST ALT Alkaline Phosphatase Creatine Kinase Creatine Kinase Index CK-MB (CK-2) Total Protein Albumin Influenza A (Rapid) Negative Influenza B (Rapid) Negative 03/09/19 03/10/19 20:50 06:35 WBC RBC Hgb Hct MCV MCH MCHC RDW Plt Count MPV Absolute Neuts (auto) Neutrophils % Lymphocytes % Monocytes % Eosinophils % Basophils % Nucleated RBC % Sodium Potassium Chloride Carbon Dioxide Anion Gap BUN Creatinine Est GFR (CKD-EPI)AfAm Est GFR (CKD-EPI)NonAf POC Glucometer 335 289 Random Glucose Calcium Phosphorus Magnesium Total Bilirubin AST ALT Alkaline Phosphatase Creatine Kinase Creatine Kinase Index CK-MB (CK-2) Total Protein Albumin Influenza A (Rapid) Influenza B (Rapid) Laboratory Tests 03/08/19 12:31 Hemoglobin A1c % 11.1 H plan: UNCONTROLLED DM /,ASHD bgm achs novolog scale levemir 25 units am levemir 10units hs DIET NUTRITION CONSULT TSH FREE T4 HEME CONSULT
[2019-03-10] MEDS ORDERED: INSULIN SLIDING SCALE (NOVOLOG) 1 VIAL SQ SCH (06:58)
[2019-03-10] MEDS: SODIUM CHLORIDE 1,000 ML IV SCH ×2 (08:01→11:50)
--- NOTE | 2019-03-10 08:30 | PN ---
Progress Note, Physician - Current Medication List Current Medications: Active Medications Acetaminophen (Tylenol -) 650 mg PO Q4H PRN PRN Reason: FEVER Albuterol/Ipratropium (Duoneb -) 1 amp NEB Q4H PRN PRN Reason: SHORTNESS OF BREATH Aspirin (Asa -) 81 mg PO DAILY [facility] Last Admin: 03/09/19 09:24 Dose: 81 mg Dronedarone (Multaq -) 400 mg PO BID [facility] Last Admin: 03/09/19 22:11 Dose: 400 mg Heparin Sodium (Porcine) (Heparin -) 5,000 unit SQ BID [facility] Last Admin: 03/09/19 22:12 Dose: 5,000 unit Hydroxyurea (Hydrea -) 500 mg PO BID [facility] Last Admin: 03/09/19 22:12 Dose: 500 mg Azithromycin 250 mg/ Dextrose 250 mls @ 250 mls/hr IVPB DAILY [facility] Last Admin: 03/09/19 11:29 Dose: 250 mls/hr Sodium Chloride (Normal Saline -) 1,000 mls @ 100 mls/hr IV ASDIR [facility] Last Admin: 03/10/19 08:01 Dose: 100 mls/hr Aztreonam 0.5 gm/ Dextrose 50 mls @ 100 mls/hr IVPB Q12H [facility]; Protocol Last Admin: 03/09/19 22:13 Dose: 100 mls/hr Insulin Aspart (Novolog Vial Sliding Scale -) 1 vial SQ TIDAC [facility]; Protocol Last Admin: 03/10/19 06:37 Dose: 4 unit Insulin Aspart (Novolog Vial Sliding Scale -) 1 vial SQ HS [facility]; Protocol Insulin Detemir (Levemir Vial) 25 units SQ AM [facility] Lorazepam (Ativan -) 1 mg PO TID [facility] Last Admin: 03/10/19 06:38 Dose: 1 mg Metoprolol Tartrate (Lopressor -) 25 mg PO BID [facility] Last Admin: 03/09/19 22:10 Dose: 25 mg Mirtazapine (Remeron -) 15 mg PO HS [facility] Last Admin: 03/09/19 22:10 Dose: 15 mg Nystatin (Nystop Powder -) 1 applic TP BID [facility] Last Admin: 03/09/19 22:14 Dose: 1 applic Olanzapine 2.5 mg/ Olanzapine (5 mg) 7.5 mg PO HS [facility] Last Admin: 03/09/19 22:11 Dose: 7.5 mg Pantoprazole Sodium (Protonix -) 40 mg PO DAILY [facility] Last Admin: 03/09/19 09:25 Dose: 40 mg Paroxetine HCl (Paxil -) 40 mg PO DAILY [facility] Last Admin: 03/09/19 09:25 Dose: 40 mg Polyethylene Glycol (Miralax (For Daily Use) -) 17 gm PO BID [facility] Last Admin: 03/09/19 22:13 Dose: 17 gm Rosuvastatin Calcium (Crestor -) 10 mg PO HS [facility] Last Admin: 03/09/19 22:09 Dose: 10 mg - Objective Vital Signs: Vital Signs Temperature 97.4 F L 03/10/19 06:28 Pulse Rate 67 03/10/19 06:28 Respiratory Rate 20 03/10/19 06:28 Blood Pressure 103/57 L 03/10/19 06:28 O2 Sat by Pulse Oximetry (%) 97 03/09/19 21:00 Cardiovascular: Yes: Regular Rate and Rhythm Respiratory: Yes: Regular, CTA Bilaterally Gastrointestinal: Yes: Normal Bowel Sounds, Soft Labs: CBC, BMP 03/09/19 06:50 INR, PTT INR 1.25 (0.83-1.09) H 03/08/19 00:59 Assessment/Plan - Problems (1) Pneumonia Assessment/Plan: -CXR LLL infiltrate -leukocytosis improved -ID consult -IV abx Problems reviewed: Yes Code(s): J18.9 - PNEUMONIA, UNSPECIFIED ORGANISM (2) EBENEZER (acute kidney injury) Assessment/Plan: -Nephrology consult -IV NS @ 125 cc/hr -U/S renal- unremarkable -monitor trend -Looking at home med list, polypharmacy is an issue -UC negative -BC pending -UA + protein+ +2 blood Problems reviewed: Yes Code(s): N17.9 - ACUTE KIDNEY FAILURE, UNSPECIFIED (3) Atypical chest pain Assessment/Plan: -EKG unremarkable -Trops x 3 negative -Likely 2/2 to pneumonia Problems reviewed: Yes Code(s): R07.89 - OTHER CHEST PAIN (4) DM Diabetes mellitus type 2 Assessment/Plan: -ISS -Check A1c -BGM AC HS -Diabetic renal diet for now -Endocrine consult -Start Levemir 15 U AM---> will adjust if needed Problems reviewed: Yes Code(s): E11.9 - TYPE 2 DIABETES MELLITUS WITHOUT COMPLICATIONS (5) Dehydration Assessment/Plan: Continue IVF -Monitor Cr trend Problems reviewed: Yes Code(s): E86.0 - DEHYDRATION (6) Klinefelter syndrome Problems reviewed: Yes Code(s): Q98.4 - KLINEFELTER SYNDROME, UNSPECIFIED (7) Polycythemia vera Problems reviewed: Yes Code(s): D45 - POLYCYTHEMIA VERA
[2019-03-10 09:14] LABS: ALBUMIN 3.5 g/dl (3.4-5.0); BILIRUBIN,TOTAL 0.3 mg/dL (0.2-1); BLOOD UREA NITROGEN 69.2 mg/dL (7-18); CALCIUM 8.2 mg/dL (8.5-10.1); CREATININE 3.4 mg/dL (0.55-1.3); POTASSIUM 4.3 mmol/L (3.5-5.1); TOT PROT 7.4 g/dl (6.4-8.2)
[2019-03-10] MEDS ORDERED: INSULIN (LEVEMIR) 100 UNITS/ML UNITS SQ SCH ×3 (09:15→13:09)
[2019-03-10] MEDS ORDERED: AZTREONAM 1 GM VIAL (RESTRICTED TO ID) ONE ×2 (09:19→22:00)
[2019-03-10] MEDS ORDERED: DEXTROSE 5%-WATER - 50 ML IVPB ONE ×2 (09:19→22:01)
[2019-03-10] MEDS: PARoxetine HCL 20 MG TABLET PO SCH (09:37)
[2019-03-10] MEDS: ASPIRIN 81 MG CHEWABLE TABLETS PO SCH (09:37)
[2019-03-10] MEDS: PANTOPRAZOLE 40 MG TABLET (FP) PO SCH (09:38)
[2019-03-10] MEDS: HEPARIN NA (PORCINE) 5,000 UNITS/ML 1ML VIAL SQ SCH ×2 (09:39→22:26)
[2019-03-10] MEDS: AZTREONAM 0.5 GM in DEXTROSE 5%-WATER - 50 ML IVPB SCH ×3 (10:51→22:46)
[2019-03-10] MEDS: DRONEDARONE HCL 400 MG TAB (FP) PO SCH ×2 (10:52→22:26)
[2019-03-10] MEDS: NYSTATIN POWDER 100,000 UNITS/GM - 15 GM TOPICAL POWDER TP SCH (10:53)
[2019-03-10] MEDS: HYDROXYUREA 500 MG CAPSULE PO SCH ×2 (10:53→22:26)
[2019-03-10] MEDS: POLYETHYLENE GLYCOL 3350 119 GM BTL PO SCH ×3 (11:00→22:35)
[2019-03-10] MEDS: METOPROLOL TARTRATE 25 MG TABLET (FP) PO SCH ×2 (11:11→22:26)
[2019-03-10] MEDS: AZITHROMYCIN IVPB 250 MG in DEXTROSE 5%-WATER - 250 ML IVPB SCH (14:07)
--- NOTE | 2019-03-10 17:58 | PN ---
Progress Note, Physician History of Present Illness: Pt seen and examined at bedside. He is awake and alert. He denies shortness of breath. - Current Medication List Current Medications: Active Medications Acetaminophen (Tylenol -) 650 mg PO Q4H PRN PRN Reason: FEVER Albuterol/Ipratropium (Duoneb -) 1 amp NEB Q4H PRN PRN Reason: SHORTNESS OF BREATH Aspirin (Asa -) 81 mg PO DAILY [facility] Last Admin: 03/10/19 09:37 Dose: 81 mg Dronedarone (Multaq -) 400 mg PO BID [facility] Last Admin: 03/10/19 10:52 Dose: 400 mg Heparin Sodium (Porcine) (Heparin -) 5,000 unit SQ BID [facility] Last Admin: 03/10/19 09:39 Dose: 5,000 unit Hydroxyurea (Hydrea -) 500 mg PO BID [facility] Last Admin: 03/10/19 10:53 Dose: 500 mg Azithromycin 250 mg/ Dextrose 250 mls @ 250 mls/hr IVPB DAILY [facility] Last Admin: 03/10/19 14:07 Dose: 250 mls/hr Sodium Chloride (Normal Saline -) 1,000 mls @ 100 mls/hr IV ASDIR [facility] Last Admin: 03/10/19 11:50 Dose: Not Given Aztreonam 0.5 gm/ Dextrose 50 mls @ 100 mls/hr IVPB Q12H [facility]; Protocol Last Admin: 03/10/19 10:51 Dose: 100 mls/hr Insulin Aspart (Novolog Vial Sliding Scale -) 1 vial SQ TIDAC [facility]; Protocol Last Admin: 03/10/19 16:26 Dose: 8 unit Insulin Aspart (Novolog Vial Sliding Scale -) 1 vial SQ HS [facility]; Protocol Insulin Detemir (Levemir Vial) 25 units SQ AM [facility] Last Admin: 03/10/19 09:31 Dose: 25 units Lorazepam (Ativan -) 1 mg PO TID [facility] Last Admin: 03/10/19 13:19 Dose: 1 mg Metoprolol Tartrate (Lopressor -) 25 mg PO BID [facility] Last Admin: 03/10/19 11:11 Dose: 25 mg Mirtazapine (Remeron -) 15 mg PO HS [facility] Last Admin: 03/09/19 22:10 Dose: 15 mg Nystatin (Nystop Powder -) 1 applic TP BID [facility] Last Admin: 03/10/19 10:53 Dose: 1 applic Olanzapine 2.5 mg/ Olanzapine (5 mg) 7.5 mg PO HS [facility] Last Admin: 03/09/19 22:11 Dose: 7.5 mg Pantoprazole Sodium (Protonix -) 40 mg PO DAILY [facility] Last Admin: 03/10/19 09:38 Dose: 40 mg Paroxetine HCl (Paxil -) 40 mg PO DAILY [facility] Last Admin: 03/10/19 09:37 Dose: 40 mg Polyethylene Glycol (Miralax (For Daily Use) -) 17 gm PO BID [facility] Last Admin: 03/10/19 11:00 Dose: 17 gm Rosuvastatin Calcium (Crestor -) 10 mg PO HS [facility] Last Admin: 03/09/19 22:09 Dose: 10 mg - Objective Vital Signs: Vital Signs Temperature 97.8 F 03/10/19 15:43 Pulse Rate 68 03/10/19 15:43 Respiratory Rate 22 H 03/10/19 15:43 Blood Pressure 106/64 03/10/19 15:43 O2 Sat by Pulse Oximetry (%) 95 03/10/19 09:00 Constitutional: Yes: Calm Eyes: Yes: Conjunctiva Clear HENT: Yes: Atraumatic Neck: Yes: Supple Cardiovascular: Yes: S1, S2 Respiratory: Yes: CTA Bilaterally Gastrointestinal: Yes: Soft Genitourinary: Yes: WNL Musculoskeletal: Yes: WNL Extremities: Yes: WNL Edema: No Neurological: Yes: Oriented Psychiatric: Yes: Oriented Labs: CBC, BMP 03/09/19 06:50 03/10/19 07:29 INR, PTT INR 1.25 (0.83-1.09) H 03/08/19 00:59 Problem List - Problems (1) EBENEZER (acute kidney injury) Code(s): N17.9 - ACUTE KIDNEY FAILURE, UNSPECIFIED (2) Pneumonia Code(s): J18.9 - PNEUMONIA, UNSPECIFIED ORGANISM (3) Atrial fibrillation Code(s): I48.91 - UNSPECIFIED ATRIAL FIBRILLATION Qualifiers: Atrial fibrillation type: paroxysmal Qualified Code(s): I48.0 - Paroxysmal atrial fibrillation (4) Atypical chest pain Code(s): R07.89 - OTHER CHEST PAIN (5) DM Diabetes mellitus Code(s): E11.9 - TYPE 2 DIABETES MELLITUS WITHOUT COMPLICATIONS Assessment/Plan Current Medications Generic Name Dose Route Start Last Admin Trade Name Freq PRN Reason Stop Dose Admin Acetaminophen 650 mg 03/08/19 10:44 Tylenol - PO Q4H PRN FEVER Albuterol/Ipratropium 1 amp 03/08/19 13:45 Duoneb - NEB Q4H PRN SHORTNESS OF BREATH Aspirin 81 mg 03/09/19 10:00 03/10/19 09:37 Asa - PO 81 mg DAILY [facility] Administration Dronedarone 400 mg 03/08/19 22:00 03/10/19 10:52 Multaq - PO 400 mg BID [facility] Administration Heparin Sodium (Porcine) 5,000 unit 03/08/19 22:00 03/10/19 09:39 Heparin - SQ 5,000 unit BID [facility] Administration Hydroxyurea 500 mg 03/08/19 22:00 03/10/19 10:53 Hydrea - PO 500 mg BID [facility] Administration Azithromycin 250 mg/ Dextrose 250 mls @ 250 mls/hr 03/09/19 10:00 03/10/19 14 :07 IVPB 250 mls/hr DAILY [facility] Administration Sodium Chloride 1,000 mls @ 100 mls/hr 03/09/19 11:18 03/10/19 11:50 Normal Saline - IV Not Given ASDIR [facility] Aztreonam 0.5 gm/ Dextrose 50 mls @ 100 mls/hr 03/09/19 21:30 03/10/19 10:51 IVPB 100 mls/hr Q12H [facility] Administration Protocol Insulin Aspart 1 vial 03/08/19 11:00 03/10/19 16:26 Novolog Vial Sliding Scale - SQ 8 unit TIDAC [facility] Administration Protocol Insulin Aspart 1 vial 03/10/19 06:58 Novolog Vial Sliding Scale - SQ HS [facility] Protocol Insulin Detemir 25 units 03/10/19 09:15 03/10/19 09:31 Levemir Vial SQ 25 units AM [facility] Administration Lorazepam 1 mg 03/08/19 14:30 03/10/19 13:19 Ativan - PO 1 mg TID [facility] Administration Metoprolol Tartrate 25 mg 03/08/19 22:00 03/10/19 11:11 Lopressor - PO 25 mg BID [facility] Administration Mirtazapine 15 mg 03/08/19 22:00 03/09/19 22:10 Remeron - PO 15 mg HS [facility] Administration Nystatin 1 applic 03/08/19 22:00 03/10/19 10:53 Nystop Powder - TP 1 applic BID [facility] Administration Olanzapine 2.5 mg/ Olanzapine 7.5 mg 03/08/19 22:00 03/09/19 22:11 5 mg PO 7.5 mg HS [facility] Administration Pantoprazole Sodium 40 mg 03/09/19 10:00 03/10/19 09:38 Protonix - PO 40 mg DAILY [facility] Administration Paroxetine HCl 40 mg 03/09/19 10:00 03/10/19 09:37 Paxil - PO 40 mg DAILY [facility] Administration Polyethylene Glycol 17 gm 03/08/19 22:00 03/10/19 11:00 Miralax (For Daily Use) - PO 17 gm BID [facility] Administration Rosuvastatin Calcium 10 mg 03/08/19 22:00 03/09/19 22:09 Crestor - PO 10 mg HS [facility] Administration Impression 1. EBENEZER 2. chest pain 3. dm 4. htn 5. PNA 6. hyperkalemia Plan - decrease rate of fluids - repeat labs in am - follow serologies - hold lasix and hold norman Dr Reynolds
[2019-03-10] MEDS: SODIUM CHLORIDE 0.45% 1,000 ML IV SCH (18:31)
[2019-03-10] MEDS ORDERED: PT OWN MED DRAWER 7, Y5N ONE (22:02)
[2019-03-10] MEDS: MIRTAZAPINE 15 MG TABLET (FP) PO SCH (22:26)
[2019-03-10] MEDS: ROSUVASTATIN CA 10 MG TABLET (FP) PO SCH (22:26)
[2019-03-10] MEDS: OLANZAPINE 2.5 MG, OLANZAPINE 5 MG PO SCH (22:27)
[2019-03-10] MEDS: INSULIN (LEVEMIR) 100 UNITS/ML UNITS SQ SCH (22:42)
[2019-03-11] MEDS: NYSTATIN POWDER 100,000 UNITS/GM - 15 GM TOPICAL POWDER TP SCH ×3 (00:15→21:59)
[2019-03-11] MEDS: LORazepam 0.5 MG TABLET PO SCH ×3 (07:09→21:49)
[2019-03-11] MEDS: INSULIN SLIDING SCALE (NOVOLOG) 1 VIAL SQ SCH ×4 (07:19→21:53)
[2019-03-11 08:34] LABS: EOS % 1.9 % (0-4.5); HEMOGLOBIN 11.1 GM/dL (11.7-16.9); MCH 33.6 pg (25.7-33.7); MCHC 33.6 g/dl (32.0-35.9); MEAN CELL VOLUME 100.1 fl (80-96); MEAN PLT VOLUME 8.1 fl (7.5-11.1); MONO % 11.4 % (3.8-10.2); NEUT % 60.7 % (42.8-82.8); PLATELET COUNT 294 K/MM3 (134-434); RDW 14.5 % (11.9-15.9); WHITE BLOOD COUNT 6.5 K/mm3 (4.0-10.0)
[2019-03-11 08:51] LABS: ALBUMIN 3.3 g/dl (3.4-5.0); BILIRUBIN,TOTAL 0.3 mg/dL (0.2-1); BLOOD UREA NITROGEN 39.4 mg/dL (7-18); CALCIUM 8.5 mg/dL (8.5-10.1); CREATININE 1.9 mg/dL (0.55-1.3); POTASSIUM 4.4 mmol/L (3.5-5.1); TOT PROT 7.4 g/dl (6.4-8.2)
[2019-03-11] MEDS: SODIUM CHLORIDE 0.45% 1,000 ML IV SCH ×2 (09:00→16:20)
--- NOTE | 2019-03-11 09:40 | PN ---
Progress Note, Physician Chief Complaint: EBENEZER Afib Pneumonia History of Present Illness: Previous notes and events reviewed awake and alert NAD denies chest pain or SOB no leukocytosis - Current Medication List Current Medications: Active Medications Acetaminophen (Tylenol -) 650 mg PO Q4H PRN PRN Reason: FEVER Albuterol/Ipratropium (Duoneb -) 1 amp NEB Q4H PRN PRN Reason: SHORTNESS OF BREATH Aspirin (Asa -) 81 mg PO DAILY [facility] Last Admin: 03/10/19 09:37 Dose: 81 mg Dronedarone (Multaq -) 400 mg PO BID [facility] Last Admin: 03/10/19 22:26 Dose: 400 mg Heparin Sodium (Porcine) (Heparin -) 5,000 unit SQ BID [facility] Last Admin: 03/10/19 22:26 Dose: 5,000 unit Hydroxyurea (Hydrea -) 500 mg PO BID [facility] Last Admin: 03/10/19 22:26 Dose: 500 mg Azithromycin 250 mg/ Dextrose 250 mls @ 250 mls/hr IVPB DAILY [facility] Last Admin: 03/10/19 14:07 Dose: 250 mls/hr Sodium Chloride (1/2 Normal Saline) 1,000 mls @ 75 mls/hr IV ASDIR [facility] Last Admin: 03/10/19 18:31 Dose: 75 mls/hr Aztreonam 0.5 gm/ Dextrose 50 mls @ 100 mls/hr IVPB Q12H [facility]; Protocol Last Admin: 03/10/19 22:46 Dose: 100 mls/hr Insulin Aspart (Novolog Vial Sliding Scale -) 1 vial SQ ACHS [facility]; Protocol Last Admin: 03/11/19 07:19 Dose: 6 units Insulin Detemir (Levemir Vial) 30 units SQ BID [facility] Last Admin: 03/10/19 22:42 Dose: 30 units Lorazepam (Ativan -) 1 mg PO TID [facility] Last Admin: 03/11/19 07:09 Dose: Not Given Metoprolol Tartrate (Lopressor -) 25 mg PO BID [facility] Last Admin: 03/10/19 22:26 Dose: 25 mg Mirtazapine (Remeron -) 15 mg PO HS [facility] Last Admin: 03/10/19 22:26 Dose: 15 mg Nystatin (Nystop Powder -) 1 applic TP BID [facility] Last Admin: 03/11/19 00:15 Dose: Not Given Olanzapine 2.5 mg/ Olanzapine (5 mg) 7.5 mg PO [facility] Last Admin: 03/10/19 22:27 Dose: 7.5 mg Pantoprazole Sodium (Protonix -) 40 mg PO DAILY [facility] Last Admin: 03/10/19 09:38 Dose: 40 mg Paroxetine HCl (Paxil -) 40 mg PO DAILY [facility] Last Admin: 03/10/19 09:37 Dose: 40 mg Polyethylene Glycol (Miralax (For Daily Use) -) 17 gm PO BID [facility] Last Admin: 03/10/19 22:35 Dose: Not Given Rosuvastatin Calcium (Crestor -) 10 mg PO [facility] Last Admin: 03/10/19 22:26 Dose: 10 mg - Objective Vital Signs: Vital Signs Temperature 97.6 F 03/11/19 06:46 Pulse Rate 110 H 03/11/19 07:00 Respiratory Rate 20 03/11/19 07:00 Blood Pressure 112/61 03/11/19 07:00 O2 Sat by Pulse Oximetry (%) 95 03/10/19 21:00 Constitutional: Yes: No Distress, Calm Eyes: Yes: Conjunctiva Clear HENT: Yes: Atraumatic Cardiovascular: Yes: Pulse Irregular Respiratory: Yes: Regular, Diminished Gastrointestinal: Yes: Normal Bowel Sounds, Soft Musculoskeletal: Yes: WNL Extremities: Yes: WNL Edema: No Neurological: Yes: Alert, Oriented Psychiatric: Yes: Alert, Oriented Labs: CBC, BMP 03/11/19 07:25 03/11/19 06:00 INR, PTT INR 1.25 (0.83-1.09) H 03/08/19 00:59 Problem List - Problems (1) EBENEZER (acute kidney injury) Assessment/Plan: -BUN/Cr 39.4/1.9 -Renal on board -monitor renal function daily Code(s): N17.9 - ACUTE KIDNEY FAILURE, UNSPECIFIED (2) Pneumonia Assessment/Plan: -Pulm and ID on board -no leukocytosis -afebrile -Azactam, Azithromycin -CXR shows segmental left lower lobe infiltrate -Bronchodilators -Keep SpO2 >90% -O2 via NC Code(s): J18.9 - PNEUMONIA, UNSPECIFIED ORGANISM (3) Atrial fibrillation Assessment/Plan: -Metoprolol for rate control -Multaq -Eliquis restarted Code(s): I48.91 - UNSPECIFIED ATRIAL FIBRILLATION Qualifiers: Atrial fibrillation type: paroxysmal Qualified Code(s): I48.0 - Paroxysmal atrial fibrillation (4) Atypical chest pain Assessment/Plan: -Trop neg x 3 -EKG NSR Code(s): R07.89 - OTHER CHEST PAIN (5) DM Diabetes mellitus type 2 Assessment/Plan: -BGM ACHS -Endocrinology consult -HgA1c 11.1% -Levemir BID -diabetic diet -dietary consult Code(s): E11.9 - TYPE 2 DIABETES MELLITUS WITHOUT COMPLICATIONS (6) Dehydration Assessment/Plan: -IV hydration -BUN/Cr showing downtrend Code(s): E86.0 - DEHYDRATION (7) HLD (hyperlipidemia) Assessment/Plan: -Rosuvastatin Code(s): E78.5 - HYPERLIPIDEMIA, UNSPECIFIED Qualifiers: Hyperlipidemia type: pure hypercholesterolemia Qualified Code(s): E78.00 - Pure hypercholesterolemia, unspecified (8) Klinefelter syndrome Code(s): Q98.4 - KLINEFELTER SYNDROME, UNSPECIFIED Assessment/Plan see problem list dvt ppx
[2019-03-11] MEDS ORDERED: PT OWN MED DRAWER 7, Y5N ONE ×2 (10:05→21:28)
[2019-03-11] MEDS: PANTOPRAZOLE 40 MG TABLET (FP) PO SCH (10:08)
[2019-03-11] MEDS: METOPROLOL TARTRATE 25 MG TABLET (FP) PO SCH ×2 (10:08→21:43)
[2019-03-11] MEDS: PARoxetine HCL 20 MG TABLET PO SCH (10:08)
[2019-03-11] MEDS: ASPIRIN 81 MG CHEWABLE TABLETS PO SCH (10:08)
[2019-03-11] MEDS: DRONEDARONE HCL 400 MG TAB (FP) PO SCH ×2 (10:09→21:44)
[2019-03-11] MEDS: HEPARIN NA (PORCINE) 5,000 UNITS/ML 1ML VIAL SQ SCH (10:10)
[2019-03-11] MEDS: AZTREONAM 0.5 GM in DEXTROSE 5%-WATER - 50 ML IVPB SCH ×2 (10:10→21:46)
[2019-03-11] MEDS: HYDROXYUREA 500 MG CAPSULE PO SCH ×2 (10:11→21:43)
[2019-03-11] MEDS: INSULIN (LEVEMIR) 100 UNITS/ML UNITS SQ SCH ×2 (10:23→21:51)
[2019-03-11] MEDS: POLYETHYLENE GLYCOL 3350 119 GM BTL PO SCH ×2 (10:26→21:45)
[2019-03-11 11:07] LABS: ANTIGLOMERULAR BASEMENT MEN.AB 6 units (0-20)
[2019-03-11] MEDS: AZITHROMYCIN IVPB 250 MG in DEXTROSE 5%-WATER - 250 ML IVPB SCH (11:12)
[2019-03-11 12:49] VITALS: BMI 33.7
--- NOTE | 2019-03-11 14:33 | CON.PSY ---
Psychiatry Consult Chief Complaint: 58b Rafael 11old maler subhash a longt history of SChizxoaffective Disorder seen for Psych eval. on Multiple Psych meds. ativan was started for anxiety. Patient reports feeling better o9n the medication. poor Historian. Symptoms: reports: Anxiety - Previous Psychiatric Treatment Outpatient: Less than 6 mos ago Inpatient: One prior admission - Previous Substance Abuse Treatment Outpatient: None Inpatient: None - Reason for Previous Treatment Reason for Previous Treatment: Major Depression, Psychotic Episode - Current Medications Current Medications: Active Medications Acetaminophen (Tylenol -) 650 mg PO Q4H PRN PRN Reason: FEVER Albuterol/Ipratropium (Duoneb -) 1 amp NEB Q4H PRN PRN Reason: SHORTNESS OF BREATH Apixaban (Eliquis -) 5 mg PO BID [facility] Aspirin (Asa -) 81 mg PO DAILY [facility] Last Admin: 03/11/19 10:08 Dose: 81 mg Dronedarone (Multaq -) 400 mg PO BID [facility] Last Admin: 03/11/19 10:09 Dose: 400 mg Hydroxyurea (Hydrea -) 500 mg PO BID [facility] Last Admin: 03/11/19 10:11 Dose: 500 mg Azithromycin 250 mg/ Dextrose 250 mls @ 250 mls/hr IVPB DAILY [facility] Last Admin: 03/11/19 11:12 Dose: 250 mls/hr Sodium Chloride (1/2 Normal Saline) 1,000 mls @ 75 mls/hr IV ASDIR [facility] Last Admin: 03/11/19 09:00 Dose: 75 mls/hr Aztreonam 0.5 gm/ Dextrose 50 mls @ 100 mls/hr IVPB Q12H [facility]; Protocol Last Admin: 03/11/19 10:10 Dose: 100 mls/hr Insulin Aspart (Novolog Vial Sliding Scale -) 1 vial SQ ACHS [facility]; Protocol Last Admin: 03/11/19 11:40 Dose: 8 units Insulin Detemir (Levemir Vial) 30 units SQ BID [facility] Last Admin: 03/11/19 10:23 Dose: 30 units Lorazepam (Ativan -) 1 mg PO TID [facility] Last Admin: 03/11/19 13:39 Dose: 1 mg Metoprolol Tartrate (Lopressor -) 25 mg PO BID [facility] Last Admin: 03/11/19 10:08 Dose: 25 mg Mirtazapine (Remeron -) 15 mg PO [facility] Last Admin: 03/10/19 22:26 Dose: 15 mg Nystatin (Nystop Powder -) 1 applic TP BID [facility] Last Admin: 03/11/19 10:12 Dose: 1 applic Olanzapine 2.5 mg/ Olanzapine (5 mg) 7.5 mg PO [facility] Last Admin: 03/10/19 22:27 Dose: 7.5 mg Pantoprazole Sodium (Protonix -) 40 mg PO DAILY [facility] Last Admin: 03/11/19 10:08 Dose: 40 mg Paroxetine HCl (Paxil -) 40 mg PO DAILY [facility] Last Admin: 03/11/19 10:08 Dose: 40 mg Polyethylene Glycol (Miralax (For Daily Use) -) 17 gm PO BID [facility] Last Admin: 03/11/19 10:26 Dose: Not Given Rosuvastatin Calcium (Crestor -) 10 mg PO [facility] Last Admin: 03/10/19 22:26 Dose: 10 mg - Allergies Allergies: Allergies Allergy/AdvReac Type Severity Reaction Status Date / Time banana Allergy Unknown Verified 02/10/19 16:13 cephalexin Allergy Unknown Verified 02/10/19 16:13 chicken derived Allergy Unknown Verified 02/10/19 16:13 cinnamon Allergy Unknown Verified 02/10/19 16:13 codeine Allergy Unknown Verified 02/10/19 16:13 egg Allergy Unknown Verified 02/10/19 16:13 hydrochlorothiazide Allergy Unknown Verified 02/10/19 16:13 levofloxacin Allergy Unknown Verified 02/10/19 16:13 onion Allergy Unknown Verified 02/10/19 16:13 pepper (genus Capsicum) Allergy Unknown Verified 02/10/19 16:13 tomato Allergy Unknown Verified 09/22/18 11:22 nut AdvReac Unknown Nausea Uncoded 03/11/19 12:26 - Current Living Status Usual Living Arrangement: Alone - Current Mental Status Evaluation Appearance: Well Groomed Attitude: Guarded - Affect Affect: Constrictive Appropriateness: Appropriate to Content - Mood Mood: Euthymic - Speech/Language Expressive: Coherent - Psychomotor Activity Psychomotor Activity: Normal - Thought Process Thought Process: Intact - Thought Content Hallucinations: Absent Delusions: Absent - Self Perception Self Perception: No Impairment - Cognition Attention: Alert Orientation: Time Memory, Short Term: 2/3 Memory, Remote with Promptin/3 - Concentration Serial Sevens Intact: No Simple Calculations Intact: Yes - Abstraction Proverb Interpretation: Intact Judgement: Intact - Insight Insight: Intact - Impulse Control Impulse Control: Good Control - Suicidal Ideation Suicidal Ideation: No - Homicidal Ideation Homicidal Ideation: No Assessment/Plan 1) Continue with [facility] psych meds
--- NOTE | 2019-03-11 15:57 | PN ---
Progress Note, Physician History of Present Illness: Pt seen and examined at bedside. He is awake and alert. He denies shortness of breath. - Current Medication List Current Medications: Active Medications Acetaminophen (Tylenol -) 650 mg PO Q4H PRN PRN Reason: FEVER Albuterol/Ipratropium (Duoneb -) 1 amp NEB Q4H PRN PRN Reason: SHORTNESS OF BREATH Apixaban (Eliquis -) 5 mg PO BID [facility] Aspirin (Asa -) 81 mg PO DAILY [facility] Last Admin: 03/11/19 10:08 Dose: 81 mg Dronedarone (Multaq -) 400 mg PO BID [facility] Last Admin: 03/11/19 10:09 Dose: 400 mg Hydroxyurea (Hydrea -) 500 mg PO BID [facility] Last Admin: 03/11/19 10:11 Dose: 500 mg Azithromycin 250 mg/ Dextrose 250 mls @ 250 mls/hr IVPB DAILY [facility] Last Admin: 03/11/19 11:12 Dose: 250 mls/hr Sodium Chloride (1/2 Normal Saline) 1,000 mls @ 75 mls/hr IV ASDIR [facility] Last Admin: 03/11/19 09:00 Dose: 75 mls/hr Aztreonam 0.5 gm/ Dextrose 50 mls @ 100 mls/hr IVPB Q12H [facility]; Protocol Last Admin: 03/11/19 10:10 Dose: 100 mls/hr Insulin Aspart (Novolog Vial Sliding Scale -) 1 vial SQ ACHS [facility]; Protocol Last Admin: 03/11/19 11:40 Dose: 8 units Insulin Detemir (Levemir Vial) 30 units SQ BID [facility] Last Admin: 03/11/19 10:23 Dose: 30 units Lorazepam (Ativan -) 1 mg PO TID [facility] Last Admin: 03/11/19 13:39 Dose: 1 mg Metoprolol Tartrate (Lopressor -) 25 mg PO BID [facility] Last Admin: 03/11/19 10:08 Dose: 25 mg Mirtazapine (Remeron -) 15 mg PO HS [facility] Last Admin: 03/10/19 22:26 Dose: 15 mg Nystatin (Nystop Powder -) 1 applic TP BID [facility] Last Admin: 03/11/19 10:12 Dose: 1 applic Olanzapine 2.5 mg/ Olanzapine (5 mg) 7.5 mg PO HS [facility] Last Admin: 03/10/19 22:27 Dose: 7.5 mg Pantoprazole Sodium (Protonix -) 40 mg PO DAILY [facility] Last Admin: 03/11/19 10:08 Dose: 40 mg Paroxetine HCl (Paxil -) 40 mg PO DAILY [facility] Last Admin: 03/11/19 10:08 Dose: 40 mg Polyethylene Glycol (Miralax (For Daily Use) -) 17 gm PO BID [facility] Last Admin: 03/11/19 10:26 Dose: Not Given Rosuvastatin Calcium (Crestor -) 10 mg PO [facility] Last Admin: 03/10/19 22:26 Dose: 10 mg - Objective Vital Signs: Vital Signs Temperature 98.7 F 03/11/19 15:00 Pulse Rate 61 03/11/19 15:00 Respiratory Rate 20 03/11/19 15:00 Blood Pressure 101/57 L 03/11/19 15:00 O2 Sat by Pulse Oximetry (%) 94 L 03/11/19 09:00 Constitutional: Yes: Calm Eyes: Yes: Conjunctiva Clear HENT: Yes: Atraumatic Neck: Yes: Supple Cardiovascular: Yes: S1, S2 Respiratory: Yes: CTA Bilaterally Gastrointestinal: Yes: Soft Genitourinary: Yes: WNL Musculoskeletal: Yes: WNL Edema: No Neurological: Yes: Oriented Psychiatric: Yes: Oriented Labs: CBC, BMP 03/11/19 07:25 03/11/19 06:00 INR, PTT INR 1.25 (0.83-1.09) H 03/08/19 00:59 Problem List - Problems (1) EBENEZER (acute kidney injury) Code(s): N17.9 - ACUTE KIDNEY FAILURE, UNSPECIFIED (2) Pneumonia Code(s): J18.9 - PNEUMONIA, UNSPECIFIED ORGANISM (3) Atrial fibrillation Code(s): I48.91 - UNSPECIFIED ATRIAL FIBRILLATION Qualifiers: Atrial fibrillation type: paroxysmal Qualified Code(s): I48.0 - Paroxysmal atrial fibrillation (4) Atypical chest pain Code(s): R07.89 - OTHER CHEST PAIN (5) DM Diabetes mellitus Code(s): E11.9 - TYPE 2 DIABETES MELLITUS WITHOUT COMPLICATIONS Assessment/Plan Current Medications Generic Name Dose Route Start Last Admin Trade Name Freq PRN Reason Stop Dose Admin Acetaminophen 650 mg 03/08/19 10:44 Tylenol - PO Q4H PRN FEVER Albuterol/Ipratropium 1 amp 03/08/19 13:45 Duoneb - NEB Q4H PRN SHORTNESS OF BREATH Apixaban 5 mg 03/11/19 22:00 Eliquis - PO BID [facility] Aspirin 81 mg 03/09/19 10:00 03/11/19 10:08 Asa - PO 81 mg DAILY [facility] Administration Dronedarone 400 mg 03/08/19 22:00 03/11/19 10:09 Multaq - PO 400 mg BID [facility] Administration Hydroxyurea 500 mg 03/08/19 22:00 03/11/19 10:11 Hydrea - PO 500 mg BID [facility] Administration Azithromycin 250 mg/ Dextrose 250 mls @ 250 mls/hr 03/09/19 10:00 03/11/19 11 :12 IVPB 250 mls/hr DAILY [facility] Administration Sodium Chloride 1,000 mls @ 75 mls/hr 03/10/19 18:00 03/11/19 09:00 1/2 Normal Saline IV 75 mls/hr ASDIR [facility] Administration Aztreonam 0.5 gm/ Dextrose 50 mls @ 100 mls/hr 03/10/19 22:15 03/11/19 10:10 IVPB 100 mls/hr Q12H [facility] Administration Protocol Insulin Aspart 1 vial 03/10/19 22:00 03/11/19 11:40 Novolog Vial Sliding Scale - SQ 8 units ACHS [facility] Administration Protocol Insulin Detemir 30 units 03/10/19 22:00 03/11/19 10:23 Levemir Vial SQ 30 units BID [facility] Administration Lorazepam 1 mg 03/08/19 14:30 03/11/19 13:39 Ativan - PO 1 mg TID [facility] Administration Metoprolol Tartrate 25 mg 03/08/19 22:00 03/11/19 10:08 Lopressor - PO 25 mg BID [facility] Administration Mirtazapine 15 mg 03/08/19 22:00 03/10/19 22:26 Remeron - PO 15 mg HS [facility] Administration Nystatin 1 applic 03/08/19 22:00 03/11/19 10:12 Nystop Powder - TP 1 applic BID [facility] Administration Olanzapine 2.5 mg/ Olanzapine 7.5 mg 03/08/19 22:00 03/10/19 22:27 5 mg PO 7.5 mg HS [facility] Administration Pantoprazole Sodium 40 mg 03/09/19 10:00 03/11/19 10:08 Protonix - PO 40 mg DAILY [facility] Administration Paroxetine HCl 40 mg 03/09/19 10:00 03/11/19 10:08 Paxil - PO 40 mg DAILY [facility] Administration Polyethylene Glycol 17 gm 03/08/19 22:00 03/11/19 10:26 Miralax (For Daily Use) - PO Not Given BID [facility] Rosuvastatin Calcium 10 mg 03/08/19 22:00 03/10/19 22:26 Crestor - PO 10 mg HS [facility] Administration Laboratory Tests 03/08/19 03/08/19 03/08/19 21:30 21:30 21:30 BISHOP M-Arsenio Not observed MIKE Screen Negative c-[facility] Pending Proteinase 3 (PR3) Pending p-[facility] Pending Atypical p-[facility] Pending Myeloperoxidase Ab Pending Double Strand DNA Ab <1 Glomerular Base Memb Ab 6 Impression 1. EBENEZER 2. chest pain 3. dm 4. htn 5. PNA 6. hyperkalemia Plan - renal function is improving - decrease fluids - follow serologies - norman and lasix on hold, unclear why he was on lasix Dr Reynolds
[2019-03-11 17:08] LABS: ATYPICAL pANCA <1:20 titer (Neg:<1:20); C-ANCA <1:20 titer (Neg:<1:20)
[2019-03-11] MEDS: ROSUVASTATIN CA 10 MG TABLET (FP) PO SCH (21:41)
[2019-03-11] MEDS: APIXABAN 5 MG TABLET PO SCH (21:42)
[2019-03-11] MEDS: MIRTAZAPINE 15 MG TABLET (FP) PO SCH (21:45)
[2019-03-11] MEDS: OLANZAPINE 2.5 MG, OLANZAPINE 5 MG PO SCH (21:46)
[2019-03-11] MEDS ORDERED: APIXABAN 5 MG TABLET PO SCH (22:00)
[2019-03-12] MEDS: SODIUM CHLORIDE 0.45% 1,000 ML IV SCH ×3 (02:36→21:53)
[2019-03-12] MEDS: LORazepam 0.5 MG TABLET PO SCH ×3 (06:46→21:46)
[2019-03-12] MEDS: INSULIN SLIDING SCALE (NOVOLOG) 1 VIAL SQ SCH ×4 (06:46→21:59)
[2019-03-12 08:59] LABS: HEMATOCRIT 31.8 % (35.4-49); HEMOGLOBIN 10.6 GM/dL (11.7-16.9); MCH 33.4 pg (25.7-33.7); MCHC 33.2 g/dl (32.0-35.9); MEAN CELL VOLUME 100.6 fl (80-96); MEAN PLT VOLUME 7.8 fl (7.5-11.1); PLATELET COUNT 279 K/MM3 (134-434); RBC 3.16 M/mm3 (4.00-5.60); RDW 14.5 % (11.9-15.9); WHITE BLOOD COUNT 6.4 K/mm3 (4.0-10.0)
[2019-03-12 09:27] LABS: ALBUMIN 3.2 g/dl (3.4-5.0); BILIRUBIN,TOTAL 0.5 mg/dL (0.2-1); BLOOD UREA NITROGEN 27.3 mg/dL (7-18); CREATININE 1.4 mg/dL (0.55-1.3); POTASSIUM 4.4 mmol/L (3.5-5.1); TOT PROT 7.1 g/dl (6.4-8.2)
[2019-03-12] MEDS ORDERED: PT OWN MED DRAWER 7, Y5N ONE ×2 (10:31→21:26)
[2019-03-12] MEDS: METOPROLOL TARTRATE 25 MG TABLET (FP) PO SCH ×2 (10:32→21:50)
[2019-03-12] MEDS: ASPIRIN 81 MG CHEWABLE TABLETS PO SCH (10:32)
[2019-03-12] MEDS: PARoxetine HCL 20 MG TABLET PO SCH (10:32)
[2019-03-12] MEDS: PANTOPRAZOLE 40 MG TABLET (FP) PO SCH (10:32)
[2019-03-12] MEDS: APIXABAN 5 MG TABLET PO SCH ×2 (10:32→21:48)
[2019-03-12] MEDS: POLYETHYLENE GLYCOL 3350 119 GM BTL PO SCH ×2 (10:33→21:51)
[2019-03-12] MEDS: NYSTATIN POWDER 100,000 UNITS/GM - 15 GM TOPICAL POWDER TP SCH ×2 (10:33→22:01)
[2019-03-12] MEDS: DRONEDARONE HCL 400 MG TAB (FP) PO SCH ×2 (10:34→21:48)
[2019-03-12] MEDS: INSULIN (LEVEMIR) 100 UNITS/ML UNITS SQ SCH ×2 (10:34→21:57)
[2019-03-12] MEDS: HYDROXYUREA 500 MG CAPSULE PO SCH ×2 (10:34→21:50)
[2019-03-12] MEDS: AZTREONAM 0.5 GM in DEXTROSE 5%-WATER - 50 ML IVPB SCH ×2 (10:36→21:51)
[2019-03-12] MEDS: AZITHROMYCIN IVPB 250 MG in DEXTROSE 5%-WATER - 250 ML IVPB SCH (10:36)
--- NOTE | 2019-03-12 11:47 | PN ---
Progress Note, Physician Chief Complaint: EBENEZER Dehydration klinefelter syndrome Pneumonia History of Present Illness: NAD Cr improving AxOx2- forgetful, unsure what is his baseline mental status - Current Medication List Current Medications: Active Medications Acetaminophen (Tylenol -) 650 mg PO Q4H PRN PRN Reason: FEVER Albuterol/Ipratropium (Duoneb -) 1 amp NEB Q4H PRN PRN Reason: SHORTNESS OF BREATH Apixaban (Eliquis -) 5 mg PO BID [facility] Last Admin: 03/12/19 10:32 Dose: 5 mg Aspirin (Asa -) 81 mg PO DAILY [facility] Last Admin: 03/12/19 10:32 Dose: 81 mg Dronedarone (Multaq -) 400 mg PO BID [facility] Last Admin: 03/12/19 10:34 Dose: 400 mg Hydroxyurea (Hydrea -) 500 mg PO BID [facility] Last Admin: 03/12/19 10:34 Dose: 500 mg Azithromycin 250 mg/ Dextrose 250 mls @ 250 mls/hr IVPB DAILY [facility] Last Admin: 03/12/19 10:36 Dose: 250 mls/hr Aztreonam 0.5 gm/ Dextrose 50 mls @ 100 mls/hr IVPB Q12H [facility]; Protocol Last Admin: 03/12/19 10:36 Dose: 100 mls/hr Sodium Chloride (1/2 Normal Saline) 1,000 mls @ 65 mls/hr IV ASDIR [facility] Last Admin: 03/12/19 02:36 Dose: 65 mls/hr Insulin Aspart (Novolog Vial Sliding Scale -) 1 vial SQ ACHS [facility]; Protocol Last Admin: 03/12/19 06:46 Dose: Not Given Insulin Detemir (Levemir Vial) 30 units SQ BID [facility] Last Admin: 03/12/19 10:34 Dose: 30 units Lorazepam (Ativan -) 1 mg PO TID [facility] Last Admin: 03/12/19 06:46 Dose: Not Given Metoprolol Tartrate (Lopressor -) 25 mg PO BID [facility] Last Admin: 03/12/19 10:32 Dose: 25 mg Mirtazapine (Remeron -) 15 mg PO HS [facility] Last Admin: 03/11/19 21:45 Dose: 15 mg Nystatin (Nystop Powder -) 1 applic TP BID [facility] Last Admin: 03/12/19 10:33 Dose: 1 applic Olanzapine 2.5 mg/ Olanzapine (5 mg) 7.5 mg PO [facility] Last Admin: 03/11/19 21:46 Dose: 7.5 mg Pantoprazole Sodium (Protonix -) 40 mg PO DAILY [facility] Last Admin: 03/12/19 10:32 Dose: 40 mg Paroxetine HCl (Paxil -) 40 mg PO DAILY [facility] Last Admin: 03/12/19 10:32 Dose: 40 mg Polyethylene Glycol (Miralax (For Daily Use) -) 17 gm PO BID [facility] Last Admin: 03/12/19 10:33 Dose: Not Given Rosuvastatin Calcium (Crestor -) 10 mg PO [facility] Last Admin: 03/11/19 21:41 Dose: 10 mg - Objective Vital Signs: Vital Signs Temperature 98.9 F 03/11/19 21:00 Pulse Rate 69 03/11/19 21:00 Respiratory Rate 20 03/11/19 21:00 Blood Pressure 129/76 03/11/19 21:00 O2 Sat by Pulse Oximetry (%) 95 03/11/19 21:00 Constitutional: Yes: Well Nourished, No Distress, Calm Cardiovascular: Yes: Regular Rate and Rhythm Respiratory: Yes: Regular Gastrointestinal: Yes: Normal Bowel Sounds, Soft, Abdomen, Obese Genitourinary: Yes: WNL Musculoskeletal: Yes: WNL Extremities: Yes: WNL Edema: No Peripheral Pulses WNL: Yes Neurological: Yes: Alert, Oriented Psychiatric: Yes: Alert, Oriented Labs: CBC, BMP 03/12/19 08:08 03/12/19 08:08 INR, PTT INR 1.25 (0.83-1.09) H 03/08/19 00:59 Problem List - Problems (1) Pneumonia Assessment/Plan: -CXR LLL infiltrate -leukocytosis improved -ID consult -IV abx Problems reviewed: Yes Code(s): J18.9 - PNEUMONIA, UNSPECIFIED ORGANISM (2) EBENEZER (acute kidney injury) Assessment/Plan: -Nephrology consult -IV 1/2 NS @ 65 cc/hr -U/S renal- unremarkable -monitor trend -Looking at home med list, polypharmacy is an issue -UC negative -BC pending -UA + protein+ +2 blood Problems reviewed: Yes Code(s): N17.9 - ACUTE KIDNEY FAILURE, UNSPECIFIED (3) Atypical chest pain Assessment/Plan: -EKG unremarkable -Trops x 3 negative -Likely 2/2 to pneumonia Problems reviewed: Yes Code(s): R07.89 - OTHER CHEST PAIN (4) DM Diabetes mellitus type 2 Assessment/Plan: -ISS -Check A1c -BGM AC HS -Diabetic renal diet for now -Endocrine consult -Start Levemir 15 U AM---> will adjust if needed Problems reviewed: Yes Code(s): E11.9 - TYPE 2 DIABETES MELLITUS WITHOUT COMPLICATIONS (5) Dehydration Assessment/Plan: Continue IVF -Monitor Cr trend Problems reviewed: Yes Code(s): E86.0 - DEHYDRATION (6) Klinefelter syndrome Problems reviewed: Yes Code(s): Q98.4 - KLINEFELTER SYNDROME, UNSPECIFIED (7) Polycythemia vera Problems reviewed: Yes Code(s): D45 - POLYCYTHEMIA VERA Assessment/Plan see problem list Spoke to brother, who is next of Kin. Psych has been consulted to determine if pt deems capacity to make healthcare decisions. Brother would like pt to be transferred to a different facility, closer to his family in [place].
--- NOTE | 2019-03-12 15:41 | PN ---
Progress Note (short form) - Note Progress Note: 1. EBENEZER 2. chest pain 3. dm 4. htn 5. PNA 6. hyperkalemia Current Medications Acetaminophen (Tylenol -) 650 mg PO Q4H PRN PRN Reason: FEVER Albuterol/Ipratropium (Duoneb -) 1 amp NEB Q4H PRN PRN Reason: SHORTNESS OF BREATH Apixaban (Eliquis -) 5 mg PO BID [facility] Last Admin: 03/12/19 10:32 Dose: 5 mg Aspirin (Asa -) 81 mg PO DAILY [facility] Last Admin: 03/12/19 10:32 Dose: 81 mg Dronedarone (Multaq -) 400 mg PO BID [facility] Last Admin: 03/12/19 10:34 Dose: 400 mg Hydroxyurea (Hydrea -) 500 mg PO BID [facility] Last Admin: 03/12/19 10:34 Dose: 500 mg Azithromycin 250 mg/ Dextrose 250 mls @ 250 mls/hr IVPB DAILY [facility] Last Admin: 03/12/19 10:36 Dose: 250 mls/hr Aztreonam 0.5 gm/ Dextrose 50 mls @ 100 mls/hr IVPB Q12H [facility]; Protocol Last Admin: 03/12/19 10:36 Dose: 100 mls/hr Sodium Chloride (1/2 Normal Saline) 1,000 mls @ 65 mls/hr IV ASDIR [facility] Last Admin: 03/12/19 02:36 Dose: 65 mls/hr Insulin Aspart (Novolog Vial Sliding Scale -) 1 vial SQ ACHS [facility]; Protocol Last Admin: 03/12/19 12:11 Dose: 8 units Insulin Detemir (Levemir Vial) 30 units SQ BID [facility] Last Admin: 03/12/19 10:34 Dose: 30 units Lorazepam (Ativan -) 1 mg PO TID [facility] Last Admin: 03/12/19 06:46 Dose: Not Given Metoprolol Tartrate (Lopressor -) 25 mg PO BID [facility] Last Admin: 03/12/19 10:32 Dose: 25 mg Mirtazapine (Remeron -) 15 mg PO HS [facility] Last Admin: 03/11/19 21:45 Dose: 15 mg Nystatin (Nystop Powder -) 1 applic TP BID [facility] Last Admin: 03/12/19 10:33 Dose: 1 applic Olanzapine 2.5 mg/ Olanzapine (5 mg) 7.5 mg PO HS [facility] Last Admin: 03/11/19 21:46 Dose: 7.5 mg Pantoprazole Sodium (Protonix -) 40 mg PO DAILY [facility] Last Admin: 03/12/19 10:32 Dose: 40 mg Paroxetine HCl (Paxil -) 40 mg PO DAILY [facility] Last Admin: 03/12/19 10:32 Dose: 40 mg Polyethylene Glycol (Miralax (For Daily Use) -) 17 gm PO BID [facility] Last Admin: 03/12/19 10:33 Dose: Not Given Rosuvastatin Calcium (Crestor -) 10 mg PO HS [facility] Last Admin: 03/11/19 21:41 Dose: 10 mg Last Vital Signs Temp Pulse Resp BP Pulse Ox 98.6 F 65 20 116/48 L 96 03/12/19 13:00 03/12/19 13:00 03/12/19 13:00 03/12/19 13:00 03/12/19 09:00 Lungs clear Heart reg Abd soft nontender Ext no edema CBC, BMP 03/12/19 08:08 03/12/19 08:08 IMP- s/p ebenezer
--- NOTE | 2019-03-12 21:30 | PN ---
Progress Note, Physician Chief Complaint: sitting in bed comfortable - Current Medication List Current Medications: Active Medications Acetaminophen (Tylenol -) 650 mg PO Q4H PRN PRN Reason: FEVER Albuterol/Ipratropium (Duoneb -) 1 amp NEB Q4H PRN PRN Reason: SHORTNESS OF BREATH Apixaban (Eliquis -) 5 mg PO BID [facility] Last Admin: 03/12/19 10:32 Dose: 5 mg Aspirin (Asa -) 81 mg PO DAILY [facility] Last Admin: 03/12/19 10:32 Dose: 81 mg Dronedarone (Multaq -) 400 mg PO BID [facility] Last Admin: 03/12/19 10:34 Dose: 400 mg Hydroxyurea (Hydrea -) 500 mg PO BID [facility] Last Admin: 03/12/19 10:34 Dose: 500 mg Azithromycin 250 mg/ Dextrose 250 mls @ 250 mls/hr IVPB DAILY [facility] Last Admin: 03/12/19 10:36 Dose: 250 mls/hr Aztreonam 0.5 gm/ Dextrose 50 mls @ 100 mls/hr IVPB Q12H [facility]; Protocol Last Admin: 03/12/19 10:36 Dose: 100 mls/hr Sodium Chloride (1/2 Normal Saline) 1,000 mls @ 65 mls/hr IV ASDIR [facility] Last Admin: 03/12/19 17:03 Dose: 65 mls/hr Insulin Aspart (Novolog Vial Sliding Scale -) 1 vial SQ ACHS [facility]; Protocol Last Admin: 03/12/19 17:03 Dose: 7 units Insulin Detemir (Levemir Vial) 30 units SQ BID [facility] Last Admin: 03/12/19 10:34 Dose: 30 units Lorazepam (Ativan -) 1 mg PO TID [facility] Last Admin: 03/12/19 15:47 Dose: 1 mg Metoprolol Tartrate (Lopressor -) 25 mg PO BID [facility] Last Admin: 03/12/19 10:32 Dose: 25 mg Mirtazapine (Remeron -) 15 mg PO HS [facility] Last Admin: 03/11/19 21:45 Dose: 15 mg Nystatin (Nystop Powder -) 1 applic TP BID [facility] Last Admin: 03/12/19 10:33 Dose: 1 applic Olanzapine 2.5 mg/ Olanzapine (5 mg) 7.5 mg PO HS [facility] Last Admin: 03/11/19 21:46 Dose: 7.5 mg Pantoprazole Sodium (Protonix -) 40 mg PO DAILY [facility] Last Admin: 03/12/19 10:32 Dose: 40 mg Paroxetine HCl (Paxil -) 40 mg PO DAILY [facility] Last Admin: 03/12/19 10:32 Dose: 40 mg Polyethylene Glycol (Miralax (For Daily Use) -) 17 gm PO BID [facility] Last Admin: 03/12/19 10:33 Dose: Not Given Rosuvastatin Calcium (Crestor -) 10 mg PO HS [facility] Last Admin: 03/11/19 21:41 Dose: 10 mg - Objective Vital Signs: Vital Signs Temperature 98.7 F 03/12/19 18:05 Pulse Rate 62 03/12/19 18:05 Respiratory Rate 19 03/12/19 18:05 Blood Pressure 127/77 03/12/19 18:05 O2 Sat by Pulse Oximetry (%) 96 03/12/19 09:00 Constitutional: Yes: Calm Eyes: Yes: EOM Intact HENT: Yes: Normocephalic Neck: Yes: Trachea Midline Cardiovascular: Yes: Regular Rate and Rhythm Respiratory: Yes: CTA Bilaterally Gastrointestinal: Yes: Normal Bowel Sounds ...Rectal Exam: Yes: Deferred Genitourinary: Yes: WNL Breast(s): Yes: Gynecomastia Musculoskeletal: Yes: Back Pain Extremities: Yes: Pallor Edema: No Neurological: Yes: Alert, Confusion Labs: CBC, BMP 03/12/19 08:08 03/12/19 08:08 INR, PTT INR 1.25 (0.83-1.09) H 03/08/19 00:59 Problem List - Problems (1) Klinefelter syndrome Problems reviewed: Yes Code(s): Q98.4 - KLINEFELTER SYNDROME, UNSPECIFIED (2) Atrial fibrillation Problems reviewed: Yes Code(s): I48.91 - UNSPECIFIED ATRIAL FIBRILLATION Qualifiers: Atrial fibrillation type: paroxysmal Qualified Code(s): I48.0 - Paroxysmal atrial fibrillation (3) Atypical chest pain Problems reviewed: Yes Code(s): R07.89 - OTHER CHEST PAIN (4) Chest pain Problems reviewed: Yes Code(s): R07.9 - CHEST PAIN, UNSPECIFIED (5) DM Diabetes mellitus type 2 Code(s): E11.9 - TYPE 2 DIABETES MELLITUS WITHOUT COMPLICATIONS (6) Dehydration Code(s): E86.0 - DEHYDRATION Assessment/Plan Current Active Problems dm t2,ckd improving cr EBENEZER (acute kidney injury) (Acute) Pneumonia (Acute) Abnormal Lab Results 03/12/19 03/12/19 08:08 08:08 RBC 3.16 L Hgb 10.6 L Hct 31.8 L MCV 100.6 H Chloride 108 H BUN 27.3 H Creatinine 1.4 H Random Glucose 223 H Albumin 3.2 L Laboratory Tests 03/11/19 03/11/19 03/11/19 06:00 06:53 11:03 Sodium 142 Potassium 4.4 Chloride 109 H Carbon Dioxide 25 Anion Gap 8 BUN 39.4 H Creatinine 1.9 H POC Glucometer 204 310 Calcium 8.5 03/11/19 03/11/19 16:09 21:34 Sodium Potassium Chloride Carbon Dioxide Anion Gap BUN Creatinine POC Glucometer 310 257 Calcium plan: increase levemir 35 units bid doses adjustment titrate as needed difficulty from adherence to diet
[2019-03-12] MEDS: ROSUVASTATIN CA 10 MG TABLET (FP) PO SCH (21:48)
[2019-03-12] MEDS: OLANZAPINE 2.5 MG, OLANZAPINE 5 MG PO SCH (21:49)
[2019-03-12] MEDS: MIRTAZAPINE 15 MG TABLET (FP) PO SCH (21:51)
[2019-03-13 01:06] LABS: HEP B CORE AB, TOT Negative (Negative)
[2019-03-13] MEDS: INSULIN SLIDING SCALE (NOVOLOG) 1 VIAL SQ SCH ×4 (06:36→22:12)
[2019-03-13] MEDS: LORazepam 0.5 MG TABLET PO SCH ×3 (06:37→22:05)
[2019-03-13] MEDS ORDERED: PT OWN MED DRAWER 7, Y5N ONE (09:33)
[2019-03-13] MEDS: PARoxetine HCL 20 MG TABLET PO SCH (09:45)
[2019-03-13] MEDS: PANTOPRAZOLE 40 MG TABLET (FP) PO SCH (09:45)
[2019-03-13] MEDS: METOPROLOL TARTRATE 25 MG TABLET (FP) PO SCH ×2 (09:45→22:07)
[2019-03-13] MEDS: ASPIRIN 81 MG CHEWABLE TABLETS PO SCH (09:45)
[2019-03-13] MEDS: APIXABAN 5 MG TABLET PO SCH ×2 (09:45→22:07)
[2019-03-13] MEDS: INSULIN (LEVEMIR) 100 UNITS/ML UNITS SQ SCH ×2 (09:46→22:11)
[2019-03-13] MEDS: POLYETHYLENE GLYCOL 3350 119 GM BTL PO SCH ×2 (09:46→22:08)
[2019-03-13] MEDS: HYDROXYUREA 500 MG CAPSULE PO SCH ×2 (09:46→22:06)
[2019-03-13] MEDS: DRONEDARONE HCL 400 MG TAB (FP) PO SCH ×2 (09:46→22:09)
[2019-03-13] MEDS: NYSTATIN POWDER 100,000 UNITS/GM - 15 GM TOPICAL POWDER TP SCH ×2 (09:47→22:17)
[2019-03-13] MEDS: AZITHROMYCIN IVPB 250 MG in DEXTROSE 5%-WATER - 250 ML IVPB SCH (09:47)
--- NOTE | 2019-03-13 10:01 | PN ---
Progress Note, Physician Chief Complaint: EBENEZER Dehydration klinefelter syndrome Pneumonia History of Present Illness: NAD Cr improving AxOx2- forgetful, unsure what is his baseline mental status - Current Medication List Current Medications: Active Medications Acetaminophen (Tylenol -) 650 mg PO Q4H PRN PRN Reason: FEVER Albuterol/Ipratropium (Duoneb -) 1 amp NEB Q4H PRN PRN Reason: SHORTNESS OF BREATH Apixaban (Eliquis -) 5 mg PO BID [facility] Last Admin: 03/13/19 09:45 Dose: 5 mg Aspirin (Asa -) 81 mg PO DAILY [facility] Last Admin: 03/13/19 09:45 Dose: 81 mg Dronedarone (Multaq -) 400 mg PO BID [facility] Last Admin: 03/13/19 09:46 Dose: 400 mg Hydroxyurea (Hydrea -) 500 mg PO BID [facility] Last Admin: 03/13/19 09:46 Dose: 500 mg Azithromycin 250 mg/ Dextrose 250 mls @ 250 mls/hr IVPB DAILY [facility] Last Admin: 03/13/19 09:47 Dose: 250 mls/hr Aztreonam 0.5 gm/ Dextrose 50 mls @ 100 mls/hr IVPB Q12H [facility]; Protocol Last Admin: 03/12/19 21:51 Dose: 100 mls/hr Sodium Chloride (1/2 Normal Saline) 1,000 mls @ 65 mls/hr IV ASDIR [facility] Last Admin: 03/12/19 21:53 Dose: 65 mls/hr Insulin Aspart (Novolog Vial Sliding Scale -) 1 vial SQ ACHS [facility]; Protocol Last Admin: 03/13/19 06:36 Dose: 5 units Insulin Detemir (Levemir Vial) 35 units SQ BID [facility] Last Admin: 03/13/19 09:46 Dose: 35 unit Lorazepam (Ativan -) 1 mg PO TID [facility] Last Admin: 03/13/19 06:37 Dose: 1 mg Metoprolol Tartrate (Lopressor -) 25 mg PO BID [facility] Last Admin: 03/13/19 09:45 Dose: 25 mg Mirtazapine (Remeron -) 15 mg PO HS [facility] Last Admin: 03/12/19 21:51 Dose: 15 mg Nystatin (Nystop Powder -) 1 applic TP BID [facility] Last Admin: 03/13/19 09:47 Dose: Not Given Olanzapine 2.5 mg/ Olanzapine (5 mg) 7.[address] [facility] Last Admin: 03/12/19 21:49 Dose: 7.5 mg Pantoprazole Sodium (Protonix -) 40 mg PO DAILY [facility] Last Admin: 03/13/19 09:45 Dose: 40 mg Paroxetine HCl (Paxil -) 40 mg PO DAILY [facility] Last Admin: 03/13/19 09:45 Dose: 40 mg Polyethylene Glycol (Miralax (For Daily Use) -) 17 gm PO BID [facility] Last Admin: 03/13/19 09:46 Dose: Not Given Rosuvastatin Calcium (Crestor -) [address] [facility] Last Admin: 03/12/19 21:48 Dose: 10 mg - Objective Vital Signs: Vital Signs Temperature 98.8 F 03/13/19 06:22 Pulse Rate 74 03/13/19 06:22 Respiratory Rate 18 03/13/19 06:22 Blood Pressure 120/71 03/13/19 06:22 O2 Sat by Pulse Oximetry (%) 96 03/12/19 21:00 Constitutional: Yes: Well Nourished, No Distress, Calm Cardiovascular: Yes: Regular Rate and Rhythm Respiratory: Yes: Regular Gastrointestinal: Yes: Normal Bowel Sounds, Soft, Abdomen, Obese Genitourinary: Yes: WNL Musculoskeletal: Yes: WNL Extremities: Yes: WNL Edema: No Peripheral Pulses WNL: Yes Neurological: Yes: Alert, Oriented Psychiatric: Yes: Alert, Oriented Labs: CBC, BMP 03/12/19 08:08 03/12/19 08:08 INR, PTT INR 1.25 (0.83-1.09) H 03/08/19 00:59 Problem List - Problems (1) Pneumonia Assessment/Plan: -CXR LLL infiltrate -leukocytosis improved -ID consult -IV abx Problems reviewed: Yes Code(s): J18.9 - PNEUMONIA, UNSPECIFIED ORGANISM (2) EBENEZER (acute kidney injury) Assessment/Plan: -Nephrology consult -IV 1/2 NS @ 65 cc/hr -U/S renal- unremarkable -monitor trend -Looking at home med list, polypharmacy is an issue -UC negative -BC pending -UA + protein+ +2 blood Problems reviewed: Yes Code(s): N17.9 - ACUTE KIDNEY FAILURE, UNSPECIFIED (3) Atypical chest pain Assessment/Plan: -EKG unremarkable -Trops x 3 negative -Likely 2/2 to pneumonia Problems reviewed: Yes Code(s): R07.89 - OTHER CHEST PAIN (4) DM Diabetes mellitus type 2 Assessment/Plan: -ISS -Check A1c -BGM AC HS -Diabetic renal diet for now -Endocrine consult -Start Levemir 15 U AM---> will adjust if needed Problems reviewed: Yes Code(s): E11.9 - TYPE 2 DIABETES MELLITUS WITHOUT COMPLICATIONS (5) Dehydration Assessment/Plan: Continue IVF -Monitor Cr trend Problems reviewed: Yes Code(s): E86.0 - DEHYDRATION (6) Klinefelter syndrome Problems reviewed: Yes Code(s): Q98.4 - KLINEFELTER SYNDROME, UNSPECIFIED (7) Polycythemia vera Problems reviewed: Yes Code(s): D45 - POLYCYTHEMIA VERA Assessment/Plan Spoke to brother, who is next of Kin earlier this week. Psych has been consulted to determine if pt deems capacity to make healthcare decisions. Brother would like pt to be transferred to facility closer to his family in [place]. meat and seafood manager notified. Called brother twice again today, however, the numbers listed were busy. Will try again later. Pt is agreeable to the plan , wants his brother to be his HCP
[2019-03-13] MEDS ORDERED: INSULIN (NOVOLOG) ASPART 100 UNITS/ML 10ML VIAL ONE ×2 (11:59→21:22)
[2019-03-13] MEDS: AZTREONAM 0.5 GM in DEXTROSE 5%-WATER - 50 ML IVPB SCH ×2 (12:04→22:18)
[2019-03-13] MEDS: SODIUM CHLORIDE 0.45% 1,000 ML IV SCH (16:15)
--- NOTE | 2019-03-13 21:26 | PN ---
Progress Note (short form) - Note Progress Note: 1. EBENEZER 2. chest pain 3. dm 4. htn 5. PNA 6. hyperkalemia Current Medications Acetaminophen (Tylenol -) 650 mg PO Q4H PRN PRN Reason: FEVER Albuterol/Ipratropium (Duoneb -) 1 amp NEB Q4H PRN PRN Reason: SHORTNESS OF BREATH Apixaban (Eliquis -) 5 mg PO BID [facility] Last Admin: 03/13/19 09:45 Dose: 5 mg Aspirin (Asa -) 81 mg PO DAILY [facility] Last Admin: 03/13/19 09:45 Dose: 81 mg Dronedarone (Multaq -) 400 mg PO BID [facility] Last Admin: 03/13/19 09:46 Dose: 400 mg Hydroxyurea (Hydrea -) 500 mg PO BID [facility] Last Admin: 03/13/19 09:46 Dose: 500 mg Azithromycin 250 mg/ Dextrose 250 mls @ 250 mls/hr IVPB DAILY [facility] Last Admin: 03/13/19 09:47 Dose: 250 mls/hr Aztreonam 0.5 gm/ Dextrose 50 mls @ 100 mls/hr IVPB Q12H [facility]; Protocol Last Admin: 03/13/19 12:04 Dose: 100 mls/hr Sodium Chloride (1/2 Normal Saline) 1,000 mls @ 65 mls/hr IV ASDIR [facility] Last Admin: 03/13/19 16:15 Dose: 65 mls/hr Insulin Aspart (Novolog Vial Sliding Scale -) 1 vial SQ ACHS [facility]; Protocol Last Admin: 03/13/19 16:19 Dose: 5 units Insulin Detemir (Levemir Vial) 35 units SQ BID [facility] Last Admin: 03/13/19 09:46 Dose: 35 unit Lorazepam (Ativan -) 1 mg PO TID [facility] Last Admin: 03/13/19 14:54 Dose: 1 mg Metoprolol Tartrate (Lopressor -) 25 mg PO BID [facility] Last Admin: 03/13/19 09:45 Dose: 25 mg Mirtazapine (Remeron -) 15 mg PO HS [facility] Last Admin: 03/12/19 21:51 Dose: 15 mg Nystatin (Nystop Powder -) 1 applic TP BID [facility] Last Admin: 03/13/19 09:47 Dose: Not Given Olanzapine 2.5 mg/ Olanzapine (5 mg) 7.5 mg PO [facility] Last Admin: 03/12/19 21:49 Dose: 7.5 mg Pantoprazole Sodium (Protonix -) 40 mg PO DAILY [facility] Last Admin: 03/13/19 09:45 Dose: 40 mg Paroxetine HCl (Paxil -) 40 mg PO DAILY [facility] Last Admin: 03/13/19 09:45 Dose: 40 mg Polyethylene Glycol (Miralax (For Daily Use) -) 17 gm PO BID [facility] Last Admin: 03/13/19 09:46 Dose: Not Given Rosuvastatin Calcium (Crestor -) 10 mg PO HS [facility] Last Admin: 03/12/19 21:48 Dose: 10 mg Last Vital Signs Temp Pulse Resp BP Pulse Ox 97.9 F 77 19 140/80 97 03/13/19 18:05 03/13/19 18:05 03/13/19 18:05 03/13/19 18:05 03/13/19 09:00 Lungs clear Heart reg Abd soft nontender Ext no edema Labs no f/u labs today CBC, BMP 03/12/19 08:08 03/12/19 08:08 IMP- s/p ebenezer improving Plan CMP in am
[2019-03-13] MEDS: ROSUVASTATIN CA 10 MG TABLET (FP) PO SCH (22:07)
[2019-03-13] MEDS: MIRTAZAPINE 15 MG TABLET (FP) PO SCH (22:08)
[2019-03-13] MEDS: OLANZAPINE 2.5 MG, OLANZAPINE 5 MG PO SCH (22:08)
[2019-03-14] MEDS: LORazepam 0.5 MG TABLET PO SCH ×2 (06:22→13:55)
[2019-03-14] MEDS: INSULIN SLIDING SCALE (NOVOLOG) 1 VIAL SQ SCH ×2 (06:24→12:05)
[2019-03-14 08:15] LABS: BILIRUBIN,TOTAL 0.4 mg/dL (0.2-1); BLOOD UREA NITROGEN 20.7 mg/dL (7-18); CALCIUM 8.9 mg/dL (8.5-10.1); CREATININE 1.1 mg/dL (0.55-1.3); POTASSIUM 3.9 mmol/L (3.5-5.1); TOT PROT 6.7 g/dl (6.4-8.2)
--- NOTE | 2019-03-14 09:27 | PN ---
Progress Note, Physician Chief Complaint: EBENEZER Afib Pneumonia History of Present Illness: Previous notes and events reviewed awake and alert NAD denies chest pain or SOB no leukocytosis afebrile BUN/Cr improved - Current Medication List Current Medications: Active Medications Acetaminophen (Tylenol -) 650 mg PO Q4H PRN PRN Reason: FEVER Albuterol/Ipratropium (Duoneb -) 1 amp NEB Q4H PRN PRN Reason: SHORTNESS OF BREATH Apixaban (Eliquis -) 5 mg PO BID [facility] Last Admin: 03/13/19 22:07 Dose: 5 mg Aspirin (Asa -) 81 mg PO DAILY [facility] Last Admin: 03/13/19 09:45 Dose: 81 mg Dronedarone (Multaq -) 400 mg PO BID [facility] Last Admin: 03/13/19 22:09 Dose: 400 mg Hydroxyurea (Hydrea -) 500 mg PO BID [facility] Last Admin: 03/13/19 22:06 Dose: 500 mg Azithromycin 250 mg/ Dextrose 250 mls @ 250 mls/hr IVPB DAILY [facility] Last Admin: 03/13/19 09:47 Dose: 250 mls/hr Aztreonam 0.5 gm/ Dextrose 50 mls @ 100 mls/hr IVPB Q12H [facility]; Protocol Last Admin: 03/13/19 22:18 Dose: 100 mls/hr Sodium Chloride (1/2 Normal Saline) 1,000 mls @ 65 mls/hr IV ASDIR [facility] Last Admin: 03/13/19 16:15 Dose: 65 mls/hr Insulin Aspart (Novolog Vial Sliding Scale -) 1 vial SQ ACHS [facility]; Protocol Last Admin: 03/14/19 06:24 Dose: 5 units Insulin Detemir (Levemir Vial) 35 units SQ BID [facility] Last Admin: 03/13/19 22:11 Dose: 35 unit Lorazepam (Ativan -) 1 mg PO TID [facility] Last Admin: 03/14/19 06:22 Dose: 1 mg Metoprolol Tartrate (Lopressor -) 25 mg PO BID [facility] Last Admin: 03/13/19 22:07 Dose: 25 mg Mirtazapine (Remeron -) 15 mg PO HS [facility] Last Admin: 03/13/19 22:08 Dose: 15 mg Nystatin (Nystop Powder -) 1 applic TP BID [facility] Last Admin: 03/13/19 22:17 Dose: Not Given Olanzapine 2.5 mg/ Olanzapine (5 mg) 7.5 mg PO [facility] Last Admin: 03/13/19 22:08 Dose: 7.5 mg Pantoprazole Sodium (Protonix -) 40 mg PO DAILY [facility] Last Admin: 03/13/19 09:45 Dose: 40 mg Paroxetine HCl (Paxil -) 40 mg PO DAILY [facility] Last Admin: 03/13/19 09:45 Dose: 40 mg Polyethylene Glycol (Miralax (For Daily Use) -) 17 gm PO BID [facility] Last Admin: 03/13/19 22:08 Dose: Not Given Rosuvastatin Calcium (Crestor -) 10 mg PO [facility] Last Admin: 03/13/19 22:07 Dose: 10 mg - Objective Vital Signs: Vital Signs Temperature 98.9 F 03/14/19 06:25 Pulse Rate 78 03/14/19 06:25 Respiratory Rate 18 03/14/19 06:25 Blood Pressure 117/60 03/14/19 06:25 O2 Sat by Pulse Oximetry (%) 97 03/13/19 21:00 Constitutional: Yes: No Distress, Calm Eyes: Yes: Conjunctiva Clear HENT: Yes: Atraumatic Cardiovascular: Yes: Pulse Irregular Respiratory: Yes: Regular, Diminished Gastrointestinal: Yes: Normal Bowel Sounds, Soft, Abdomen, Obese Musculoskeletal: Yes: WNL Extremities: Yes: WNL Edema: No Neurological: Yes: Alert, Oriented Psychiatric: Yes: Alert, Oriented Labs: CBC, BMP 03/12/19 08:08 03/14/19 07:06 INR, PTT INR 1.25 (0.83-1.09) H 03/08/19 00:59 Problem List - Problems (1) EBENEZER (acute kidney injury) Assessment/Plan: -BUN/Cr 20.7/1.1 -Renal on board -monitor renal function daily Code(s): N17.9 - ACUTE KIDNEY FAILURE, UNSPECIFIED (2) Pneumonia Assessment/Plan: -Pulm and ID on board -no leukocytosis -afebrile -Azactam, Azithromycin -CXR shows segmental left lower lobe infiltrate -Bronchodilators -Keep SpO2 >90% -O2 via NC Code(s): J18.9 - PNEUMONIA, UNSPECIFIED ORGANISM (3) Atrial fibrillation Assessment/Plan: -Metoprolol for rate control -Multaq -Eliquis Code(s): I48.91 - UNSPECIFIED ATRIAL FIBRILLATION Qualifiers: Atrial fibrillation type: paroxysmal Qualified Code(s): I48.0 - Paroxysmal atrial fibrillation (4) Atypical chest pain Assessment/Plan: -Trop neg x 3 -EKG NSR Code(s): R07.89 - OTHER CHEST PAIN (5) DM Diabetes mellitus type 2 Assessment/Plan: -BGM ACHS -Endocrinology consult -HgA1c 11.1% -Levemir BID -diabetic diet -dietary consult Code(s): E11.9 - TYPE 2 DIABETES MELLITUS WITHOUT COMPLICATIONS (6) Dehydration Assessment/Plan: -IV hydration -BUN/Cr showing downtrend Code(s): E86.0 - DEHYDRATION (7) HLD (hyperlipidemia) Assessment/Plan: -Rosuvastatin Code(s): E78.5 - HYPERLIPIDEMIA, UNSPECIFIED Qualifiers: Hyperlipidemia type: pure hypercholesterolemia Qualified Code(s): E78.00 - Pure hypercholesterolemia, unspecified (8) Klinefelter syndrome Code(s): Q98.4 - KLINEFELTER SYNDROME, UNSPECIFIED Assessment/Plan see problem list dvt ppx d/c patient when switched to PO antibiotics
[2019-03-14] MEDS ORDERED: PT OWN MED DRAWER 7, Y5N ONE (10:08)
[2019-03-14] MEDS: APIXABAN 5 MG TABLET PO SCH (10:19)
[2019-03-14] MEDS: PANTOPRAZOLE 40 MG TABLET (FP) PO SCH (10:19)
[2019-03-14] MEDS: METOPROLOL TARTRATE 25 MG TABLET (FP) PO SCH (10:19)
[2019-03-14] MEDS: NYSTATIN POWDER 100,000 UNITS/GM - 15 GM TOPICAL POWDER TP SCH (10:19)
[2019-03-14] MEDS: ASPIRIN 81 MG CHEWABLE TABLETS PO SCH (10:19)
[2019-03-14] MEDS: PARoxetine HCL 20 MG TABLET PO SCH (10:19)
[2019-03-14] MEDS: HYDROXYUREA 500 MG CAPSULE PO SCH (10:20)
[2019-03-14] MEDS: DRONEDARONE HCL 400 MG TAB (FP) PO SCH (10:20)
[2019-03-14] MEDS: POLYETHYLENE GLYCOL 3350 119 GM BTL PO SCH (10:21)
[2019-03-14] MEDS: AZITHROMYCIN IVPB 250 MG in DEXTROSE 5%-WATER - 250 ML IVPB SCH (10:21)
[2019-03-14] MEDS: AZTREONAM 0.5 GM in DEXTROSE 5%-WATER - 50 ML IVPB SCH (10:21)
--- NOTE | 2019-03-14 11:02 | DS ---
Physical Examination Vital Signs: Vital Signs Temperature 98.4 F 03/14/19 10:28 Pulse Rate 71 03/14/19 10:28 Respiratory Rate 16 03/14/19 10:28 Blood Pressure 136/80 03/14/19 10:28 O2 Sat by Pulse Oximetry (%) 97 03/13/19 21:00 Findings/Remarks: Laboratory Last Values WBC 6.4 K/mm3 (4.0-10.0) 03/12/19 08:08 RBC 3.16 M/mm3 (4.00-5.60) L 03/12/19 08:08 Hgb 10.6 GM/dL (11.7-16.9) L 03/12/19 08:08 Hct 31.8 % (35.4-49) L 03/12/19 08:08 MCV 100.6 fl (80-96) H 03/12/19 08:08 MCH 33.4 pg (25.7-33.7) 03/12/19 08:08 MCHC 33.2 g/dl (32.0-35.9) 03/12/19 08:08 RDW 14.5 % (11.9-15.9) 03/12/19 08:08 Plt Count 279 K/MM3 (134-434) 03/12/19 08:08 MPV 7.8 fl (7.5-11.1) 03/12/19 08:08 Absolute Neuts (auto) 3.9 K/mm3 (1.5-8.0) 03/11/19 07:25 Neutrophils % 60.7 % (42.8-82.8) 03/11/19 07:25 Lymphocytes % 25.0 % (8-40) 03/11/19 07:25 Monocytes % 11.4 % (3.8-10.2) H 03/11/19 07:25 Eosinophils % 1.9 % (0-4.5) 03/11/19 07:25 Basophils % 1.0 % (0-2.0) 03/11/19 07:25 Nucleated RBC % 0 % (0-0) 03/11/19 07:25 PT with INR 14.80 SEC (9.7-13.0) H 03/08/19 00:59 INR 1.25 (0.83-1.09) H 03/08/19 00:59 D-Dimer 533 ng/ml (0-500) H 03/08/19 00:58 Anticoagulation Therapy No Result Required. 03/08/19 01:32 Puncture Site No Result Required. 03/08/19 01:32 ABG pH 7.25 (7.35-7.45) L 03/08/19 01:32 ABG pCO2 at Pt Temp 43.0 mmHg (35-45) 03/08/19 01:32 ABG pO2 at Pt Temp 66.3 mmHg (80-100) L 03/08/19 01:32 ABG HCO3 18.4 mmol/L (22-27) L 03/08/19 01:32 ABG O2 Sat (Measured) 92.0 % (95-98) L 03/08/19 01:32 ABG O2 Content 15.6 % vol 03/08/19 01:32 ABG Base Excess -8.0 meq/l (-2-2) L 03/08/19 01:32 Tae Test No Result Required. 03/08/19 01:32 Carboxyhemoglobin 1.6 % (0-2) 03/08/19 01:32 Methemoglobin < 1.0 % (0-2) 03/08/19 01:32 O2 Delivery Device No Result Required. 03/08/19 01:32 Oxygen Flow Rate No Result Required. 03/08/19 01:32 Vent Mode No Result Required. 03/08/19 01:32 Vent Rate No Result Required. 03/08/19 01:32 Mechanical Rate No Result Required. 03/08/19 01:32 Pressure Support Vent No Result Required. 03/08/19 01:32 Sodium 142 mmol/L (136-145) 03/14/19 07:06 Potassium 3.9 mmol/L (3.5-5.1) 03/14/19 07:06 Chloride 108 mmol/L (98-107) H 03/14/19 07:06 Carbon Dioxide 24 mmol/L (21-32) 03/14/19 07:06 Anion Gap 10 MMOL/L (8-16) 03/14/19 07:06 BUN 20.7 mg/dL (7-18) H 03/14/19 07:06 Creatinine 1.1 mg/dL (0.55-1.3) 03/14/19 07:06 Est GFR (CKD-EPI)AfAm 86.52 03/14/19 07:06 Est GFR (CKD-EPI)NonAf 74.65 03/14/19 07:06 POC Glucometer 200 UNITS (80-120) 03/14/19 06:21 Random Glucose 204 mg/dL (74-106) H 03/14/19 07:06 Hemoglobin A1c % 11.1 % (4.2-6.3) H 03/08/19 12:31 Calcium 8.9 mg/dL (8.5-10.1) 03/14/19 07:06 Phosphorus 5.2 mg/dL (2.5-4.9) H 03/09/19 06:50 Magnesium 2.0 mg/dL (1.8-2.4) 03/09/19 06:50 Total Bilirubin 0.4 mg/dL (0.2-1) 03/14/19 07:06 AST 35 U/L (15-37) 03/14/19 07:06 ALT 39 U/L (13-61) 03/14/19 07:06 Alkaline Phosphatase 77 U/L (45-117) 03/14/19 07:06 Ammonia 44.90 umol/L (11-32) H 03/08/19 02:34 Creatine Kinase 1244 U/L (26-308) H 03/09/19 06:50 Creatine Kinase Index 0.4 % (0.0-5.0) 03/09/19 06:50 CK-MB (CK-2) 5.6 ng/mL (0.5-3.6) H 03/09/19 06:50 Troponin I < 0.02 ng/ml (0.00-0.05) 03/08/19 06:55 B-Natriuretic Peptide 189.1 pg/ml (5-125) H 03/08/19 00:59 Total Protein 6.7 g/dl (6.4-8.2) 03/14/19 07:06 Total Protein (PEP) 7.2 g/dL (6.0-8.5) 03/08/19 21:30 Albumin 3.0 g/dl (3.4-5.0) L 03/14/19 07:06 Albumin (PEP) 3.5 gm/dl (2.9-4.4) 03/08/19 21:30 Globulin 3.7 g/dL (2.2-3.9) 03/08/19 21:30 Albumin/Globulin Ratio 0.9 (0.7-1.7) 03/08/19 21:30 Beta Globulins 1.1 gm/dL (0.7-1.3) 03/08/19 21:30 Urine Color Yellow 03/08/19 04:40 Urine Appearance Cloudy 03/08/19 04:40 Urine pH 5.0 (5.0-8.0) 03/08/19 04:40 Ur Specific [place] 1.015 (1.010-1.035) 03/08/19 04:40 Urine Protein 2+ (NEGATIVE) H 03/08/19 04:40 Urine Glucose (UA) Trace (NEGATIVE) 03/08/19 04:40 Urine Ketones Negative (NEGATIVE) 03/08/19 04:40 Urine Blood 2+ (NEGATIVE) H 03/08/19 04:40 Urine Nitrite Negative (NEGATIVE) 03/08/19 04:40 Urine Bilirubin Negative (NEGATIVE) 03/08/19 04:40 Urine Urobilinogen 0.2 mg/dL (0.2-1.0) 03/08/19 04:40 Ur Leukocyte Esterase Negative (NEGATIVE) 03/08/19 04:40 Urine WBC (Auto) 5 /hpf (0-5) 03/08/19 04:40 Urine RBC (Auto) 3 /hpf (0-4) 03/08/19 04:40 Urine Casts (Auto) 2 /lpf (0-8) 03/08/19 04:40 U Epithel Cells (Auto) 1.6 /HPF (0-5/HPF) 03/08/19 04:40 Urine Bacteria (Auto) 0.5 /hpf (NEGATIVE) 03/08/19 04:40 Ur Random Creatinine No Result Required. 03/08/19 10:20 U Random Total Protein 148.2 mg/dL (0-11.9) H 03/08/19 10:20 Ur Random Sodium 47 MMOL/L (40-220) 03/08/19 04:40 Urine Creatinine 120.0 mg/dL (30-150) 03/08/19 10:20 Protein/Creatinin Ratio 1.2 mg/dL 03/08/19 10:20 Salicylates < 1.7 mg/dL (2.8-20) L 03/08/19 01:19 Opiates Screen Positive ng/ml (JNHLKQ=518) A* 03/08/19 04:40 Methadone Screen Negative ng/ml (HOSKOG=589) 03/08/19 04:40 Acetaminophen <2.0 03/08/19 01:11 Barbiturate Screen Negative ng/ml (DCKNII=817) 03/08/19 04:40 Phencyclidine Screen Negative ng/ml (CUTOFF=25) 03/08/19 04:40 Ur Amphetamines Screen Negative ng/ml (NEIRNO=812) 03/08/19 04:40 MDMA (Ecstasy) Screen Negative ng/ml (QVNCYM=218) 03/08/19 04:40 Benzodiazepines Screen Negative ng/ml (YQNFAA=825) 03/08/19 04:40 Cocaine Screen Negative ng/ml (RMRPGK=705) 03/08/19 04:40 U Marijuana (THC) Screen Negative ng/ml (CUTOFF=50) 03/08/19 04:40 Alcohol, Quantitative < 3 mg/dL (0.0-5.0) 03/08/19 02:00 BISHOP M-Arsenio Not observed g/dL (Not Observed) 03/08/19 21:30 MIKE Screen Negative (.) 03/08/19 21:30 c-ANCA <1:20 titer (Neg:<1:20) 03/08/19 21:30 Proteinase 3 (PR3) <3.5 U/mL (0.0-3.5) 03/08/19 21:30 p-ANCA <1:20 titer (Neg:<1:20) 03/08/19 21:30 Atypical p-ANCA <1:20 titer (Neg:<1:20) 03/08/19 21:30 Myeloperoxidase Ab <9.0 U/mL (0.0-9.0) 03/08/19 21:30 Double Strand DNA Ab <1 IU/mL (0-9) 03/08/19 21:30 Glomerular Base Memb Ab 6 units (0-20) 03/08/19 21:30 Hep A IgM Ab Confirm Negative (Negative) 03/08/19 21:30 Hepatitis A Ab Total Positive (Negative) H 12/17/19 21:30 Hep Bs Antigen Negative (Negative) 03/08/19 21:30 Hep Bs Antibody Non reactive (.) 03/08/19 21:30 Hep B Core Total Ab Negative (Negative) 03/08/19 21:30 Hep B Core IgM Ab Negative (Negative) 03/08/19 21:30 Hepatitis Be Antibody Negative (Negative) 03/08/19 21:30 Hepatitis Be Antigen Negative (Negative) 03/08/19 21:30 HCV Quantitation Hcv not detected IU/mL (.) 03/08/19 21:30 HCV RNA log copies/mL TNP 03/08/19 21:30 Influenza A (Rapid) Negative (Negative) 03/09/19 08:02 Influenza B (Rapid) Negative (Negative) 03/09/19 08:02 Home Medication List Medication Instructions Recorded Confirmed Type Apixaban [Eliquis] 5 mg PO BID 01/26/17 03/07/19 History LORazepam [Lorazepam] 1 mg PO TID 01/26/17 03/07/19 History Lisinopril [Prinivil] 20 mg PO DAILY 01/26/17 03/07/19 History Aspirin [ASA -] 81 mg PO DAILY 01/27/17 03/07/19 History Ergocalciferol (Vitamin D2) 50,000 unit PO WEEKLY 01/27/17 03/07/19 History [Vitamin D2] Furosemide [Lasix] 40 mg PO DAILY 02/10/17 03/07/19 History Metoprolol Tartrate 25 mg PO BID 02/10/17 03/07/19 History Nitroglycerin 0.4 mg SL ASDIR PRN 07/29/17 03/07/19 History Mirtazapine [Remeron -] 15 mg PO HS 03/18/18 03/07/19 History Multivitamins [Multivit ([facility] 1 tab PO DAILY 03/18/18 03/07/19 History Formulary)] Oxycodone HCl 5 mg PO PRN 03/18/18 03/07/19 History Metformin HCl [Glucophage] 1,000 mg PO BID 09/17/18 03/07/19 History Olanzapine 7.5 mg PO HS 09/17/18 03/07/19 History Acetaminophen 650 mg PO Q8H PRN 09/20/18 03/07/19 History Dronedarone HCl [Multaq] 400 mg PO BID 09/20/18 03/07/19 History Gabapentin [Neurontin] 600 mg PO TID 09/20/18 03/07/19 History Insulin Glargine,Hum.rec.anlog 100 unit SQ DAILY 09/20/18 03/07/19 History [Lantus] Mirabegron [Myrbetriq] 25 mg PO DAILY 09/20/18 03/07/19 History Pantoprazole Sodium [Protonix] 40 mg PO DAILY 09/20/18 03/07/19 History Pramipexole Dihydrochloride 0.25 mg PO BID 09/20/18 03/07/19 History [Mirapex -] Azelastine HCl 137 mcg NS BID 09/22/18 03/07/19 History Levocetirizine Dihydrochloride 5 mg PO DAILY 09/22/18 03/07/19 History [Xyzal] Ondansetron HCl [Zofran] 8 mg PO Q8H PRN 09/22/18 03/07/19 History Paroxetine HCl [Paxil] 40 mg PO DAILY 09/22/18 03/07/19 History Polyethylene Glycol 3350 [Miralax 17 gm PO BID 09/22/18 03/07/19 History (For Daily Use) -] Clotrimazole 15 gm TP BID 03/07/19 03/07/19 History Doxepin HCl 50 mg PO DAILY 03/07/19 03/07/19 History Dulaglutide [Trulicity] 1.5 mg SQ WEEKLY 03/07/19 03/07/19 History Gemfibrozil 600 mg PO BID 03/07/19 03/07/19 History Hydrocodone/Acetaminophen [[place] 1 each PO PRN 03/07/19 03/07/19 History 5-325 Tablet] Insulin Glargine,Hum.rec.anlog 300 unit SQ HS 03/07/19 03/07/19 History [Tougeremias Ash Solostar] Insulin Regular, Human [Humulin R 500 unit SQ TID 03/07/19 03/07/19 History U-500 Kwikpen] Ipratropium/Albuterol Sulfate 3 ml IH PRN 03/07/19 03/07/19 History [Iprat-Albut 0.5-3(2.5) mg/3 ml] Loperamide HCl [Imodium -] 2 mg PO DAILY PRN 03/07/19 03/07/19 History Meclizine HCl 25 mg PO HS 03/07/19 03/07/19 History Nystatin [Nyamyc] 60 gm TP BID 03/07/19 03/07/19 History Rosuvastatin Calcium [Crestor] 20 mg PO HS 03/07/19 03/07/19 History Active Medications Generic Name Dose Route Start Last Admin Trade Name Freq PRN Reason Stop Dose Admin Acetaminophen 650 mg 03/08/19 10:44 Tylenol - PO Q4H PRN FEVER Albuterol/Ipratropium 1 amp 03/08/19 13:45 Duoneb - NEB Q4H PRN SHORTNESS OF BREATH Apixaban 5 mg 03/11/19 22:00 03/14/19 10:19 Eliquis - PO 5 mg BID ANCA Administration Aspirin 81 mg 03/09/19 10:00 03/14/19 10:19 Asa - PO 81 mg DAILY ANCA Administration Dronedarone 400 mg 03/08/19 22:00 03/14/19 10:20 Multaq - PO 400 mg BID ANCA Administration Hydroxyurea 500 mg 03/08/19 22:00 03/14/19 10:20 Hydrea - PO 500 mg BID ANCA Administration Azithromycin 250 mg/ Dextrose 250 mls @ 250 mls/hr 03/09/19 10:00 03/14/19 10 :21 IVPB 250 mls/hr DAILY ANCA Administration Aztreonam 0.5 gm/ Dextrose 50 mls @ 100 mls/hr 03/10/19 22:15 03/14/19 10:21 IVPB 100 mls/hr Q12H ANCA Administration Protocol Sodium Chloride 1,000 mls @ 65 mls/hr 03/11/19 15:57 03/13/19 16:15 1/2 Normal Saline IV 65 mls/hr ASDIR ANCA Administration Insulin Aspart 1 vial 03/10/19 22:00 03/14/19 06:24 Novolog Vial Sliding Scale - SQ 5 units ACHS ANCA Administration Protocol Insulin Detemir 35 units 03/12/19 22:00 03/13/19 22:11 Levemir Vial SQ 35 unit BID ANCA Administration Lorazepam 1 mg 03/08/19 14:30 03/14/19 06:22 Ativan - PO 1 mg TID ANCA Administration Metoprolol Tartrate 25 mg 03/08/19 22:00 03/14/19 10:19 Lopressor - PO 25 mg BID ANCA Administration Mirtazapine 15 mg 03/08/19 22:00 03/13/19 22:08 Remeron - PO 15 mg HS ANCA Administration Nystatin 1 applic 03/08/19 22:00 03/14/19 10:19 Nystop Powder - TP 1 applic BID ANCA Administration Olanzapine 2.5 mg/ Olanzapine 7.5 mg 03/08/19 22:00 03/13/19 22:08 5 mg PO 7.5 mg HS ANCA Administration Pantoprazole Sodium 40 mg 03/09/19 10:00 03/14/19 10:19 Protonix - PO 40 mg DAILY ANCA Administration Paroxetine HCl 40 mg 03/09/19 10:00 03/14/19 10:19 Paxil - PO 40 mg DAILY ANCA Administration Polyethylene Glycol 17 gm 03/08/19 22:00 03/14/19 10:21 Miralax (For Daily Use) - PO Not Given BID ANCA Rosuvastatin Calcium 10 mg 03/08/19 22:00 03/13/19 22:07 Crestor - PO 10 mg HS ANCA Administration Microbiology 03/08/19 21:30 Blood - Peripheral Venous Blood Culture - Final NO GROWTH AFTER 5 DAYS INCUBATION 03/08/19 21:30 Blood - Peripheral Venous Blood Culture - Final NO GROWTH AFTER 5 DAYS INCUBATION 03/09/19 12:00 Urine For Antigen Detection Legionella Antigen - Final 03/09/19 12:00 Urine For Antigen Detection Streptococcus pneumoniae Antigen (M - Final 03/08/19 04:40 Urine - Urine Clean Catch Urine Culture - Final NO GROWTH OBTAINED Constitutional: Yes: No Distress, Calm Eyes: Yes: Conjunctiva Clear HENT: Yes: Atraumatic Cardiovascular: Yes: Pulse Irregular Respiratory: Yes: Regular, Diminished Gastrointestinal: Yes: Normal Bowel Sounds, Soft Musculoskeletal: Yes: Muscle Weakness Extremities: Yes: WNL Edema: No Peripheral Pulses WNL: No Neurological: Yes: Alert, Oriented Psychiatric: Yes: Alert, Oriented Labs: CBC, BMP 03/12/19 08:08 03/14/19 07:06 Discharge Summary Problems reviewed: Yes Reason For Visit: ACUTE KIDNEY INJURY Current Active Problems EBENEZER (acute kidney injury) (Acute) Klinefelter syndrome (Acute) Pneumonia (Acute) Hospital Course: 58y M with PMH of Polycythemia Vera (gets phlebotomy), NIDDM, HTN, HLD presenting to ED with complaints of shortness of breath and chest pain for a few days (pt could not be more specific). He states he feels a pressure like sensation in his chest and feels short of breath when exhaling. He says the SOB and chest pain is constant, he feels more short of breath when lying down. He has had similar symptoms in the past. 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 He denies history of NM in self and family. Denies smoking , alcohol use. When asked if patient takes anything for anxiety patient says he does not know. Denies drug use. Denies cough, fevers, chills, abdominal pain, n/ v/d, numbness/tingling, weakness. Pulm and ID on board after CXR shows segmental LLL infiltrate. No leukocytosis and afebrile. Started on Azactam and Azithromycin. Patient responded will to ABT. Condition: Stable - Instructions Diet, Activity, Other Instructions: Follow up with pmd in 2 weeks continue with medication as prescribed low Na/diabetic diet return to ER if develop severe pain, chest pain, respiratory distress Disposition: [facility] - Home Medications Comprehensive Discharge Medication List: Ambulatory Orders Apixaban [Eliquis] 5 mg PO BID 01/26/17 LORazepam [Lorazepam] 1 mg PO TID 01/26/17 Lisinopril [Prinivil] 20 mg PO DAILY 01/26/17 Aspirin [ASA -] 81 mg PO DAILY 01/27/17 Ergocalciferol (Vitamin D2) [Vitamin D2] 50,000 unit PO WEEKLY 01/27/17 Hydroxyurea [Hydrea 500Mg Capsule -] 500 mg PO BID #60 capsule 01/28/17 Furosemide [Lasix] 40 mg PO DAILY 02/10/17 Metoprolol Tartrate 25 mg PO BID 02/10/17 Nitroglycerin 0.4 mg SL ASDIR PRN 07/29/17 Mirtazapine [Remeron -] 15 mg PO HS 03/18/18 Multivitamins [Multivit ([facility] Formulary)] 1 tab PO DAILY 03/18/18 Oxycodone HCl 5 mg PO PRN 03/18/18 Metformin HCl [Glucophage] 1,000 mg PO BID 09/17/18 Olanzapine 7.5 mg PO HS 09/17/18 Acetaminophen 650 mg PO Q8H PRN 09/20/18 Dronedarone HCl [Multaq] 400 mg PO BID 09/20/18 Gabapentin [Neurontin] 600 mg PO TID 09/20/18 Insulin Glargine,Hum.rec.anlog [Lantus] 100 unit SQ DAILY 09/20/18 Mirabegron [Myrbetriq] 25 mg PO DAILY 09/20/18 Pantoprazole Sodium [Protonix] 40 mg PO DAILY 09/20/18 Pramipexole Dihydrochloride [Mirapex -] 0.25 mg PO BID 09/20/18 Azelastine HCl 137 mcg NS BID 09/22/18 Levocetirizine Dihydrochloride [Xyzal] 5 mg PO DAILY 09/22/18 Ondansetron HCl [Zofran] 8 mg PO Q8H PRN 09/22/18 Paroxetine HCl [Paxil] 40 mg PO DAILY 09/22/18 Polyethylene Glycol 3350 [Miralax (For Daily Use) -] 17 gm PO BID 09/22/18 Clotrimazole 15 gm TP BID 03/07/19 Doxepin HCl 50 mg PO DAILY 03/07/19 Dulaglutide [Trulicity] 1.5 mg SQ WEEKLY 03/07/19 Gemfibrozil 600 mg PO BID 03/07/19 Hydrocodone/Acetaminophen [[place] 5-325 Tablet] 1 each PO PRN 03/07/19 Insulin Glargine,Hum.rec.anlog [Toujeo Max Solostar] 300 unit SQ HS 03/07/19 Insulin Regular, Human [Humulin R U-500 Kwikpen] 500 unit SQ TID 03/07/19 Ipratropium/Albuterol Sulfate [Iprat-Albut 0.5-3(2.5) mg/3 ml] 3 ml IH PRN 03/07 Loperamide HCl [Imodium -] 2 mg PO DAILY PRN 03/07/19 Meclizine HCl 25 mg PO HS 03/07/19 Nystatin [Nyamyc] 60 gm TP BID 03/07/19 Rosuvastatin Calcium [Crestor] 20 mg PO HS 03/07/19
[2019-03-14] MEDS: INSULIN (LEVEMIR) 100 UNITS/ML UNITS SQ SCH (12:04)
--- NOTE | 2019-03-14 12:14 | PN ---
Progress Note (short form) - Note Progress Note: Patient seen for decision making capacity .. MS; alert, oriented to day date month. Knew who the President is and talked about impeachment. able to comprehens. Cognition is intact. REC: Patient has the functional capacity to make decisions at this time.
[2019-03-14 14:32] VITALS: BP 119/70; PULSE 69; TEMP 98.6
--- NOTE | 2019-03-14 14:36 | PN ---
Progress Note, Physician History of Present Illness: Pt seen and examined at bedside. He is awake and alert. he denies shortness of breath. - Current Medication List Current Medications: Active Medications Acetaminophen (Tylenol -) 650 mg PO Q4H PRN PRN Reason: FEVER Albuterol/Ipratropium (Duoneb -) 1 amp NEB Q4H PRN PRN Reason: SHORTNESS OF BREATH Apixaban (Eliquis -) 5 mg PO BID [facility] Last Admin: 03/14/19 10:19 Dose: 5 mg Aspirin (Asa -) 81 mg PO DAILY ANCA Last Admin: 03/14/19 10:19 Dose: 81 mg Dronedarone (Multaq -) 400 mg PO BID ANCA Last Admin: 03/14/19 10:20 Dose: 400 mg Hydroxyurea (Hydrea -) 500 mg PO BID [facility] Last Admin: 03/14/19 10:20 Dose: 500 mg Azithromycin 250 mg/ Dextrose 250 mls @ 250 mls/hr IVPB DAILY ANCA Last Admin: 03/14/19 10:21 Dose: 250 mls/hr Aztreonam 0.5 gm/ Dextrose 50 mls @ 100 mls/hr IVPB Q12H ANCA; Protocol Last Admin: 03/14/19 10:21 Dose: 100 mls/hr Sodium Chloride (1/2 Normal Saline) 1,000 mls @ 65 mls/hr IV ASDIR [facility] Last Admin: 03/13/19 16:15 Dose: 65 mls/hr Insulin Aspart (Novolog Vial Sliding Scale -) 1 vial SQ ACHS [facility]; Protocol Last Admin: 03/14/19 12:05 Dose: 7 units Insulin Detemir (Levemir Vial) 35 units SQ BID [facility] Last Admin: 03/14/19 12:04 Dose: 35 unit Lorazepam (Ativan -) 1 mg PO TID ANCA Last Admin: 03/14/19 13:55 Dose: 1 mg Metoprolol Tartrate (Lopressor -) 25 mg PO BID [facility] Last Admin: 03/14/19 10:19 Dose: 25 mg Mirtazapine (Remeron -) 15 mg PO HS [facility] Last Admin: 03/13/19 22:08 Dose: 15 mg Nystatin (Nystop Powder -) 1 applic TP BID [facility] Last Admin: 03/14/19 10:19 Dose: 1 applic Olanzapine 2.5 mg/ Olanzapine (5 mg) 7.5 mg PO [facility] Last Admin: 03/13/19 22:08 Dose: 7.5 mg Pantoprazole Sodium (Protonix -) 40 mg PO DAILY [facility] Last Admin: 03/14/19 10:19 Dose: 40 mg Paroxetine HCl (Paxil -) 40 mg PO DAILY [facility] Last Admin: 03/14/19 10:19 Dose: 40 mg Polyethylene Glycol (Miralax (For Daily Use) -) 17 gm PO BID [facility] Last Admin: 03/14/19 10:21 Dose: Not Given Rosuvastatin Calcium (Crestor -) 10 mg PO [facility] Last Admin: 03/13/19 22:07 Dose: 10 mg - Objective Vital Signs: Vital Signs Temperature 98.6 F 03/14/19 14:23 Pulse Rate 69 03/14/19 14:23 Respiratory Rate 16 03/14/19 14:23 Blood Pressure 119/70 03/14/19 14:23 O2 Sat by Pulse Oximetry (%) 97 03/13/19 21:00 Constitutional: Yes: Calm Eyes: Yes: Conjunctiva Clear HENT: Yes: Atraumatic Neck: Yes: Supple Cardiovascular: Yes: S1, S2 Respiratory: Yes: CTA Bilaterally Gastrointestinal: Yes: Normal Bowel Sounds, Soft Genitourinary: Yes: WNL Musculoskeletal: Yes: WNL Edema: No Integumentary: Yes: WNL Neurological: Yes: Oriented Labs: CBC, BMP 03/12/19 08:08 03/14/19 07:06 INR, PTT INR 1.25 (0.83-1.09) H 03/08/19 00:59 Problem List - Problems (1) EBENEZER (acute kidney injury) Code(s): N17.9 - ACUTE KIDNEY FAILURE, UNSPECIFIED (2) Pneumonia Code(s): J18.9 - PNEUMONIA, UNSPECIFIED ORGANISM (3) Atrial fibrillation Code(s): I48.91 - UNSPECIFIED ATRIAL FIBRILLATION Qualifiers: Qualified Code(s): I48.0 - Paroxysmal atrial fibrillation (4) Atypical chest pain Code(s): R07.89 - OTHER CHEST PAIN (5) DM Diabetes mellitus Code(s): E11.9 - TYPE 2 DIABETES MELLITUS WITHOUT COMPLICATIONS Assessment/Plan Current Medications Generic Name Dose Route Start Last Admin Trade Name Freq PRN Reason Stop Dose Admin Acetaminophen 650 mg 03/08/19 10:44 Tylenol - PO Q4H PRN FEVER Albuterol/Ipratropium 1 amp 03/08/19 13:45 Duoneb - NEB Q4H PRN SHORTNESS OF BREATH Apixaban 5 mg 03/11/19 22:00 03/14/19 10:19 Eliquis - PO 5 mg BID ANCA Administration Aspirin 81 mg 03/09/19 10:00 03/14/19 10:19 Asa - PO 81 mg DAILY ANCA Administration Dronedarone 400 mg 03/08/19 22:00 03/14/19 10:20 Multaq - PO 400 mg BID ANCA Administration Hydroxyurea 500 mg 03/08/19 22:00 03/14/19 10:20 Hydrea - PO 500 mg BID ANCA Administration Azithromycin 250 mg/ Dextrose 250 mls @ 250 mls/hr 03/09/19 10:00 03/14/19 10 :21 IVPB 250 mls/hr DAILY ANCA Administration Aztreonam 0.5 gm/ Dextrose 50 mls @ 100 mls/hr 03/10/19 22:15 03/14/19 10:21 IVPB 100 mls/hr Q12H ANCA Administration Protocol Sodium Chloride 1,000 mls @ 65 mls/hr 03/11/19 15:57 03/13/19 16:15 1/2 Normal Saline IV 65 mls/hr ASDIR ANCA Administration Insulin Aspart 1 vial 03/10/19 22:00 03/14/19 12:05 Novolog Vial Sliding Scale - SQ 7 units ACHS ANCA Administration Protocol Insulin Detemir 35 units 03/12/19 22:00 03/14/19 12:04 Levemir Vial SQ 35 unit BID ANCA Administration Lorazepam 1 mg 03/08/19 14:30 03/14/19 13:55 Ativan - PO 1 mg TID ANCA Administration Metoprolol Tartrate 25 mg 03/08/19 22:00 03/14/19 10:19 Lopressor - PO 25 mg BID ANCA Administration Mirtazapine 15 mg 03/08/19 22:00 03/13/19 22:08 Remeron - PO 15 mg HS ANCA Administration Nystatin 1 applic 03/08/19 22:00 03/14/19 10:19 Nystop Powder - TP 1 applic BID ANCA Administration Olanzapine 2.5 mg/ Olanzapine 7.5 mg 03/08/19 22:00 03/13/19 22:08 5 mg PO 7.5 mg HS ANCA Administration Pantoprazole Sodium 40 mg 03/09/19 10:00 03/14/19 10:19 Protonix - PO 40 mg DAILY ANCA Administration Paroxetine HCl 40 mg 03/09/19 10:00 03/14/19 10:19 Paxil - PO 40 mg DAILY ANCA Administration Polyethylene Glycol 17 gm 03/08/19 22:00 03/14/19 10:21 Miralax (For Daily Use) - PO Not Given BID ANCA Rosuvastatin Calcium 10 mg 03/08/19 22:00 03/13/19 22:07 Crestor - PO 10 mg HS ANCA Administration Laboratory Tests 03/08/19 03/08/19 21:30 21:30 MIKE Screen Negative c-ANCA <1:20 Proteinase 3 (PR3) <3.5 p-ANCA <1:20 Atypical p-ANCA <1:20 Myeloperoxidase Ab <9.0 Double Strand DNA Ab <1 Glomerular Base Memb Ab 6 Impression 1. EBENEZER 2. chest pain 3. dm 4. htn 5. PNA 6. hyperkalemia Plan - serologies negative - renal function is improved - d/f fluids - keep off of lasix and norman for now - will need outpt follow up Dr Reynolds
--- NOTE | 2019-03-14 14:38 | PN ---
Progress Note, Physician History of Present Illness: AWAKE, ALERT SEATED IN BED NO COMPLAINTS DENIES CHEST PAIN/ DYSPNEA/ COUGH NO C/O F/C RENAL FUNCTION IMPROVED WNL - Current Medication List Current Medications: Active Medications Acetaminophen (Tylenol -) 650 mg PO Q4H PRN PRN Reason: FEVER Albuterol/Ipratropium (Duoneb -) 1 amp NEB Q4H PRN PRN Reason: SHORTNESS OF BREATH Apixaban (Eliquis -) 5 mg PO BID [facility] Last Admin: 03/14/19 10:19 Dose: 5 mg Aspirin (Asa -) 81 mg PO DAILY [facility] Last Admin: 03/14/19 10:19 Dose: 81 mg Dronedarone (Multaq -) 400 mg PO BID [facility] Last Admin: 03/14/19 10:20 Dose: 400 mg Hydroxyurea (Hydrea -) 500 mg PO BID [facility] Last Admin: 03/14/19 10:20 Dose: 500 mg Azithromycin 250 mg/ Dextrose 250 mls @ 250 mls/hr IVPB DAILY [facility] Last Admin: 03/14/19 10:21 Dose: 250 mls/hr Aztreonam 0.5 gm/ Dextrose 50 mls @ 100 mls/hr IVPB Q12H [facility]; Protocol Last Admin: 03/14/19 10:21 Dose: 100 mls/hr Sodium Chloride (1/2 Normal Saline) 1,000 mls @ 65 mls/hr IV ASDIR [facility] Last Admin: 03/13/19 16:15 Dose: 65 mls/hr Insulin Aspart (Novolog Vial Sliding Scale -) 1 vial SQ ACHS [facility]; Protocol Last Admin: 03/14/19 12:05 Dose: 7 units Insulin Detemir (Levemir Vial) 35 units SQ BID [facility] Last Admin: 03/14/19 12:04 Dose: 35 unit Lorazepam (Ativan -) 1 mg PO TID [facility] Last Admin: 03/14/19 13:55 Dose: 1 mg Metoprolol Tartrate (Lopressor -) 25 mg PO BID [facility] Last Admin: 03/14/19 10:19 Dose: 25 mg Mirtazapine (Remeron -) 15 mg PO HS [facility] Last Admin: 03/13/19 22:08 Dose: 15 mg Nystatin (Nystop Powder -) 1 applic TP BID [facility] Last Admin: 03/14/19 10:19 Dose: 1 applic Olanzapine 2.5 mg/ Olanzapine (5 mg) 7.5 mg PO [facility] Last Admin: 03/13/19 22:08 Dose: 7.5 mg Pantoprazole Sodium (Protonix -) 40 mg PO DAILY [facility] Last Admin: 03/14/19 10:19 Dose: 40 mg Paroxetine HCl (Paxil -) 40 mg PO DAILY [facility] Last Admin: 03/14/19 10:19 Dose: 40 mg Polyethylene Glycol (Miralax (For Daily Use) -) 17 gm PO BID [facility] Last Admin: 03/14/19 10:21 Dose: Not Given Rosuvastatin Calcium (Crestor -) 10 mg PO HS [facility] Last Admin: 03/13/19 22:07 Dose: 10 mg - Objective Vital Signs: Vital Signs Temperature 98.6 F 03/14/19 14:23 Pulse Rate 69 03/14/19 14:23 Respiratory Rate 16 03/14/19 14:23 Blood Pressure 119/70 03/14/19 14:23 O2 Sat by Pulse Oximetry (%) 97 03/13/19 21:00 Constitutional: Yes: No Distress Eyes: Yes: Conjunctiva Clear Cardiovascular: Yes: Regular Rate and Rhythm, S1, S2 Respiratory: Yes: CTA Bilaterally Gastrointestinal: Yes: Normal Bowel Sounds, Soft. No: Tenderness Labs: CBC, BMP 03/12/19 08:08 03/14/19 07:06 INR, PTT INR 1.25 (0.83-1.09) H 03/08/19 00:59 Assessment/Plan PNEUMONIA IMPROVED EBENEZER RESOLVED CEPHALOSPORIN ALLERGY SCHIZOPHRENIA D/C ANTIBIOTICS, OBSERVE OFF OUTPATIENT F/U
== END 2019-03-14 16:00 | DRG 682 ==
LOC: JER 20:53 → JERBED 03-08 03:08 → J5S 03-09 18:39
PROVIDERS: ADMIT Internal Medicine; ATTEND Family Medicine
DX: N17.9 Acute kidney failure, unspecified (principal); J18.9 Pneumonia, unspecified organism; Q98.4 Klinefelter syndrome, unspecified; E87.5 Hyperkalemia; F20.9 Schizophrenia, unspecified; E66.9 Obesity, unspecified; Z68.33 Body mass index [BMI] 33.0-33.9, adult; I48.0 Paroxysmal atrial fibrillation; R07.89 Other chest pain; E86.0 Dehydration; D72.829 Elevated white blood cell count, unspecified; E11.65 Type 2 diabetes mellitus with hyperglycemia; I12.9 Hypertensive chronic kidney disease with stage 1 through stage 4 chronic kidney disease, or unspecified chronic kidney disease; N18.9 Chronic kidney disease, unspecified; I25.10 Atherosclerotic heart disease of native coronary artery without angina pectoris; E11.21 Type 2 diabetes mellitus with diabetic nephropathy; E78.5 Hyperlipidemia, unspecified
CPT/HCPCS: 36415; 36600; 70450-TC; 71045-TC-FY; 76775-TC; 76856-TC; 80048; 80051; 80053; 80307; 81003; 82140; 82375; 82550; 82553; 82565; 82570; 82803; 82962; 83036; 83050; 83516; 83520; 83735; 83880; 84100; 84155; 84156; 84165; 84300; 84484; 85025; 85027; 85379; 85610; 86038; 86225; 86256; 86704; 86706; 86707; 86708; 86709; 87040; 87086; 87340; 87522; 87804; 87899; 93005; 93010; 99285-25; J1644; J7030; J8999